=== PATIENT | female | born 1985 | race Caucasian/White ===

== ENCOUNTER 2023-07-05 14:04 | Outpatient (OUT) | payer OTHER, SELFPAY | END 2023-07-05 14:05 | disposition home or self-care (01) | PROVIDERS: PCP Radiology Diagnostic Radiology; Visit Provider Radiology Diagnostic Radiology | DX: I83.813 Varicose veins of bilateral lower extremities with pain (principal) ==

== ENCOUNTER 2023-07-12 13:08 | Outpatient (OUT) | payer OTHER, SELFPAY ==
--- NOTE | 2023-07-12 13:10 | VEIN_ITS ---
Patient Name: LONG YOON MR#: [id number] : 1985 Exam Date: 07/12/2023 Ordering Doctor: DR GAUDENCIO CARR M.D. RADIOLOGY REPORT PROCEDURE: VC EXT VENOUS REFLUX MASSIMO LMTD COMPARISON: None. INDICATIONS: I83.813 Bilateral painful varicose veins TECHNIQUE: Duplex imaging of the lower extremity to assess the deep and superficial venous system for the presence of deep or superficial venous incompetence and to document the location and severity of disease. The study includes evaluation of the great saphenous vein (GSV), anterior accessory saphenous vein (AASV) and small saphenous vein (SSV). Patient scanned in reverse Trendelenburg and standing. FINDINGS: RIGHT LOWER EXTREMITY: Saphenofemoral Junction Reflux: Yes 9.2mm 3.7 sec GSV: Diam (mm) Reflux/ Time (sec) Proximal Thigh 7.9 Yes 3.1 Mid Thigh 5.8 Yes 3.9 Distal Thigh 8.6 Yes 3.9 Prox Calf 2.1 Yes 3.4 Mid Calf 2.2 Yes 1.5 Saphenopopliteal Junction Reflux: 2.2mm Yes 0.6 SSV: Proximal Calf 2.2 Yes 0.4 Mid Calf 2.9 No AASV: Not present Thrombi: No acute or chronic thrombus. Compressibility: Normal. Flow: Severe deep venous reflux. Preforator: Dist medial lower leg 3.6 mm, 1.0s reflux. Tech Note: Incompetent varicosity proximal medial calf measures 5.4 mm with 2.9s reflux. Varicose vein mid medial calf measures 4.0 mm with 3.3s reflux. LEFT LOWER EXTREMITY: Saphenofemoral Junction Reflux: Yes 8.3 mm 2.9 sec GSV: Diam (mm) Reflux/Time (sec) Proximal Thigh 6.6 Yes 3.2 Mid Thigh 4.6 Yes 0.3 Distal Thigh 5.6 Yes 3.7 Prox Calf 5.6 Yes 3.8 Mid Calf 3.8 Yes 1.3 Saphenopopliteal Junction Relux: 6.4 mm Yes 1.0 SSV: Proximal Calf 6.2 Yes 2.0 Mid Calf 4.2 Yes 1.2 AASV: Not present Thrombi: No acute or chronic thrombus. Compressibility: Normal. Flow: Minimal deep venous reflux. 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 Tech Note: Incompetent varicose vein mid medial lower leg measures 4.3 mm with 2.7s reflux. Varicose vein lateral popliteal fossa off of popliteal measures 6.4 mm with 3.9s reflux. Mid medial thigh varicosity measures 4.8 mm with 3.9s reflux. Varicose vein proximal lateral lower leg measures 4.0 mm with 2.4s reflux. CONCLUSION: 1. Severe bilateral great saphenous vein venous insufficiency with saphenofemoral junction reflux and dilatation 2. Moderate left small saphenous vein venous insufficiency with saphenous popliteal junction reflux and dilatation 3. Incompetent left accessory small saphenous vein/incompetent perforating vein 4. Bilateral incompetent varicose veins measuring up to 6.4 mm Dictated by: Gaudencio Carr MD on 07/12/2023 at 14:23 Approved by: Gaudencio Carr MD on 07/12/2023 at 14:25
--- NOTE | 2023-07-12 13:10 | VEIN_ITS ---
Patient Name: LONG YOON MR#: [id number] : 1985 Exam Date: 07/12/2023 Ordering Doctor: DR GAUDENCIO CARR M.D. RADIOLOGY REPORT PROCEDURE: [facility] - OFFICE VISIT INITIAL COMPARISON: None. PROGRESS NOTES: 38-year-old female who presents with a 6 year history of lower extremity pain swelling and varicose veins. The patient rates the pain as a 2 on a scale of 1-10. The patient describes the pain as aching and heaviness occasionally sharp. Patient's symptoms are exacerbated by prolonged sitting and standing and partially relieved by rest, leg elevation and compression stockings which she has worn for the last 6 years. 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 The patient has exercise 5-6 days per week. The patient denies any signs and symptoms to suggest arterial ischemia. The patient describes a family history significant for varicose veins in her mother. Heart disease in her mother and father. Social alcohol use. No illicit drug use. The patient has never smoked. . Patient has 2 children aged 1 and half and 6. The patient is currently on Prozac. No prior significant medical conditions. No history of deep venous thrombus or pulmonary embolus. See separate history and physical for medication list. No prior treatment for varicose or spider veins. The patient has worn compression stockings for 6 years. Nursing notes were reviewed. After history and physical exam I discussed at length the pathophysiology of venous hypertension and possible treatments, therapies and strategies available. We discussed at length the importance of elevating the lower extremities above the level of the heart, increased physical activity and compression stocking use. We discussed conservative treatment with bilateral thigh-high compression stockings. We discussed surgical alternatives including ligation and stripping and phlebectomy. We discussed intravenous laser ablation, micro foam chemical ablation and injection sclerotherapy at length. Risks benefits and alternatives were discussed. I did explain to the patient that given the amount of disease that she has she likely will have significant recurrent disease going forward requiring regular treatments. I encouraged her to wear her compression stockings and continue her exercise. Ultrasound venous reflux study performed the same day was discussed at length with the patient. The report demonstrates severe bilateral great saphenous vein venous insufficiency with saphenofemoral junction reflux and dilatation period moderate left small saphenous vein insufficiency with an accessory incompetent small saphenous vein/incompetent perforating vein. PHYSICAL EXAM: The right leg demonstrates mild scattered varicose and reticular veins. Mild subcutaneous edema. No active ulceration or hemosiderin staining. The left leg demonstrates moderate scattered varicose and reticular veins. Mild subcutaneous edema. No active ulceration or hemosiderin staining Both thighs, legs and feet were symmetrically warm to the touch. Good posterior tibial and dorsalis pedis pulses were present bilaterally. VEIN/VC Facility EST Comprehensive IMPRESSION: 1. Bilateral great saphenous vein and left small saphenous vein venous insufficiency 2. Bilateral incompetent lower extremity varicose veins, left greater than right 3. Mild bilateral lower extremity subcutaneous edema 4. No definite flow significant arterial disease 5. CEAP: C3, Ep, Asp, Pr PLAN: 1. Endovenous laser ablation left great saphenous vein followed by right great saphenous vein followed by left small saphenous vein followed by left accessory small saphenous vein 2. Micro foam chemical ablation bilateral incompetent varicose veins 3. Injection sclerotherapy reticular and spider vein 4. Long-term use of bilateral thigh-high or knee high 20-30 mm compression stockings 5. Elevated legs and continued physical activity for symptomatic relief Nurse notes, history and physical were reviewed and confirmed, see attached forms. The nurse was present throughout the physical exam and consultation Dictated by: Gaudencio Carr MD on 07/12/2023 at 14:44 Approved by: Gaudencio Carr MD on 07/12/2023 at 14:54
--- OUTSIDE RECORDS SUMMARY | 2023-07-12 13:10 | XMS_ITS | CCD ---
Author Name Unknown Address [address] [place] [address] Organization [facility] Care Team Providers Care Early Childhood Specialist Name Role Phone Rishabh Hayes Unavailable Yuri Naik Admitting Unavailable Yuri Naik Attending Unavailable OBERERASHISH Primary Care Unavailable Nataprkeshia, Marie Admitting Unavailable NatReagan parraa Attending Unavailable NatMarie parra Admitting Unavailable Oberer, Ashish Primary Care Unavailable Colby Callejas Attending Unavailable Chucho Barroso Admitting Unavailable Chucho Barroso Attending Unavailable Jennifer Roberson Admitting Unavailable Jennifer Roberson Attending Unavailable Oblouannr, Ashish Primary Care Unavailable Rishabh Hayes Admitting Unavailable Rishabh Hayes Attending Unavailable Oberer, Ashish Primary Care Unavailable Birgit Razo Unavailable Medications Current Medications Medication Drug Class(es) Dates Sig (Normalized) Sig (Original) docusate sodium 100 mg oral capsule (1 source) Start: 11-11-2021 take 100 mg by mouth at bedtime Docusate Sodium Active 100 MG PO Bedtime November 11, 2021 12:00am ferrous sulfate 325 mg oral tablet (1 source) Start: 11-12-2021 take 325 mg by mouth once daily Ferrous Sulfate Active 325 MG PO Daily November 12, 2021 12:00am FLUoxetine 20 mg oral capsule (3 sources) Serotonin Reuptake Inhibitor Start: 11-02-2021 take 1 capsule by mouth once daily Fluoxetine (Prozac) 20 mg Capsule Active 20 MG PO Daily November 02, 2021 12:00am ibuprofen 600 mg oral tablet (2 sources) Nonsteroidal Anti-inflammatory Drug Start: 11-11-2021 take 600 mg by mouth every six hours Ibuprofen Active 600 MG PO Q6H 60 November 11, 2021 12:00am Start: 03-11-2017 End: 11-02-2021 take 600 mg by mouth every six hours Ibuprofen Discontinued 600 MG PO Every 6 hours 60 March 11, 2017 12:00am November 02, 2021 11:20pm Multi For Her - (2 sources) Multi For Her - as directed Orally Active Pnv Cmb#95-Ferrous Fumarate-Fa () 28 mg iron- 800 mcg Tablet (1 source) Start: 03-08-2017 take 1 tablet by mouth once daily Pnv Cmb#95-Ferrous Fumarate-Fa () 28 mg iron- 800 mcg Tablet Active 1 TAB PO Daily March 08, 2017 12:00am Completed/Discontinued Medications Medication Drug Class(es) Dates Sig (Normalized) Sig (Original) traMADol hydrochloride 50 mg oral tablet (1 source) Opioid Agonist Start: 03-11-2017 End: 11-02-2021 take 50 mg by mouth every four hours Tramadol Discontinued 50 MG PO Q4H 30 March 11, 2017 12:00am November 02, 2021 11:20pm Triamcinolone (6 sources) Corticosteroid Start: 12-11-2017 KENALOG - 10 mg Nov, 40 mg Start: 02-03-2015 KENALOG - 10 m g Jan, Start: 01-21-2015 KENALOG - 10 m g Jan, Problems Active Problems Problem Classification Problem Date Documented Date Episodic/Chronic Headache; including migraine (3 sources) Migraine; Translations: [Migraine, unspecified, not intractable, without status migrainosus] Chronic Miscellaneous mental health disorders (2 sources) Psychophysiologic insomnia; Translations: [Psychophysiologic insomnia] Chronic Mood disorders (5 sources) Major depression, single episode; Translations: [Major depressive disorder, single episode, unspecified] Chronic Other nutritional; endocrine; and metabolic disorders (2 sources) Overweight; Translations: [Overweight] Episodic Other nutritional; endocrine; and metabolic disorders (1 source) Abnormal weight gain Episodic Other nutritional; endocrine; and metabolic disorders (1 source) Overweight Episodic Other and delivery including normal (1 source) Vaginal delivery; Translations: [Encounter for full-term uncomplicated delivery] 03-10-2017 Episodic Residual codes; unclassified (2 sources) Long sleeper syndrome; Translations: [Sleep disorder, unspecified] Episodic Unclassified (1 source) Dietary counseling and surveillance; Translations: [Dietary counseling and surveillance] Onset: 03-21-2022 Unclassified (1 source) Z39.1 - Encounter for care and examination of lactating mother; Translations: [Z39.1 - Encounter for care and examination of lactating mother] Onset: 11-14-2021 Unclassified (1 source) Z34.83 - Encounter for supervision of other normal , third trimester; Translations: [Z34.83 - Encounter for supervision of other normal , third trimester] Onset: 11-10-2021 Unclassified (1 source) O09.293 - Supervision of with other poor reproductive or obstetric history, third trimester; Translations: [O09.293 - Supervision of with other poor reproductive or obstetric history, third trimester] Onset: 11-03-2021 Unclassified (1 source) Z36.85 - Encounter for screening for Streptococcus B; Translations: [Z36.85 - Encounter for screening for Streptococcus B] Onset: 10-13-2021 Varicose veins of lower extremity (2 sources) Varicose veins of lower extremity; Translations: [Varicose veins of bilateral lower extremities with other complications] Episodic Past or Other Problems Problem Classification Problem Date Documented Da te Episodic/Chronic Residual codes; unclassified (1 source) 35 weeks gestation of ; Translations: [Z3A.35 - 35 weeks gestation of ] Onset: 10-13-2021 Episodic Results Test Name Value Interpretation Reference Range Facility Coding Summaryon 03-25-2022 [facility] RhhozqriTZr4aYr+PGhlYWQ +NE0JMGIpR21ggXMrdK2AM8 mVWE2UHNAJFTZBYC3FRT5hm XC7EAywO7ZfnjIi TrcbjUCpDI17RXi5DWF7oZd uGJqzyO9roPOuH7h3QcBtUM 98oJ21KVedPFHqShC0IcUgy jsgbWFy N5vjPfPxeJVgNxf+PHRhYmx lIHdpZHRoPScxMDAlJyBzdH weZF7fVs0bBJLmKDZwbVkpk HNlOiBj x5deRHEfEHtaVM6liBcnM1F dxAP9GJGpo2z8Jo73cLQ+PH UxUAI0eTxzMAjte054EaTzh 2dfHPZ9 oELnQWktBGL9K94uk8J5WDM bZZOyBSS6zZM2cP0rxSvksy ibY4MaiHBdRkP3HMP1cIAzf F8ygCkp jgatkI9hQwi+K42ARP3UTAZ HUN1HDnb9C6VpXgygcXR+PC 43QTLpMP14yWYjnLWvn0fuh El2CyBx FTHnZCI3eTwdYLjxg7DuQFQ lR85frBHza7L2TCNzkQbbzG ScLvSefZM7mJ1vPSekzlmpm 2hvdzsn Uplvp4lqhm74yM66D74hDRd jXIOjVMP1TTVlYQOnhHvgbd 4tkR0tVv9+SVokf9ekm7kmm Xq2CkKn PIDtykGafYweHDS2y7OdBu8 1P0YlvYaix9MmJks9lc38fO Yrf3G6cLO1HNtpJWEntC5jP WxlZnQ6 BBSuBrUgnK08fRPbGRmjDy8 euBuxvXrvDL7fSNMiduysGL DueH0yZAUwkQJeaCsiUV0bL TBpbjtm x910EpTbSDG9JRHrjFRhD7O zcK1gStQsNCFmURAgS9JjtV EpHGbfK575VSueAzI5VQUif gRxA0Kr VVGcdNnuTqH5w7Q8Uh8Tz7K bnrkqJRF9HWwdWVUkHjK7At VrKbF8V3IrAoj0IIZfvEvmA Q0vT4Jc UJIyaftzixjnePJ2QPQkIVK eaV26hAHtYTovYl5ai5Z2i5 33NYWcUJDuvQ47Fb7mqYwuW TBwdCBU wQ9fvwwwt7tdoigiMpMhQTK aGSj6OGo9RTTcpKlyOkHmIM I0OhC0QXP3uXNwdL1oqQois zvjoP6w Oyc+J74maM2vIKK0VOE6wwm nPXDmzaSaIO86CX00M2MpQe wvdGFibGU+PGRpdiBzdHlsZ W6xNjWu b3ydf1IuQJcoQ9YnSOZhANk xBwr0TPYcLIY0qVK6eO2dUR HlUKcna4Z1hTB1E2UtrmJga b0ye5vg VETfHFniE22vrVVri4C5ZLO yrBY9HISbbFmtIjLqcC42Tu c+FSDesVinr4SlMlsyv0tns 9lznQs3 RzDeBMWzwhQwzTarBBY0w3K aLg77K10zBKimWRLsEJMxOT SjKLQneIwpsi1cxW0uLc1+P GNvbCB3 qXR1sM4uTHQeIiT0GBamJ98 2MhTmgOUjHsyvs8kbc8llgD y3NvMdLOHilrGnwEenPXS6h 0YtDq34 J00vJHgqTUObLGDvZFCjUXD htGvhnl1peO9gXk1+PC9jb2 rbzx38lW64qAZ+XGQgJMD5y WxlPSdw VFUctM5mLWvzVxU8BOBkWvR ntM77mPPyFAxjLs2lfWpevM auBS7iBHNlculkk345NfYto 2xkIDEw gJFiGPwlMNR5C01sl4E0XXK wLNBuJBU6tNT1vG7wcTgpyc ogbGVmdDsgdmVydGljYWwtY SddV573 IHRvcDsnPlBhdGllbnQgTmF oPAe1E4ZcTbl7WPWwbWkuPA 6ktRCwNLgsZq8cxXkzeOypV A9hYKQi teiiy656HiBrg6fiGTEplAC fONasUQJ5V18ui5Q4CZQpBM LnSPI1tBQ8iD6hyFlbhgwij GVmdDsg dxFteXjhBPybPOgcF692RLV blIoaZeQgsmBvRWIhoWU5VT 88TS01xYMnl0L7dQJ2L3BnE GRpbmct egmlnSP0CMRrVZEirU11Qy1 luBvpKt6tRSBxYFR6SLSicK MaA3LirN4gFmSeBVUcFQXnB 3RleHQt VCnwA787RYgzGmT5VQJybyP fD9AzFHSqnSlqDfB8p9D0Bh 6PF5S1DB80BA38kLHsa6N9c TR8K9Uc NQUwxonfyowphJQ2GQRiZWK bkV76Fj0opNznDl6oHRWgGA H3GLRseXRfE8HgxW2iPdCjA DAwMDAw L2UtoYCvTIkjA056HBpoHkP 8YEZzsgTkO1YeDEXnuPmqXa B5u6Q9Ho3KVRy9XJ07UP55o MTet7Z8 mXU3J6UiPGSpyweayrrysXC 8TZFaIIGocY56Ii6geWcxBw 8uMUEiUMC8PDMpbMSjU1Dzx J3qLwJo TFJmDNUwI4ZwzQLdNPryQ00 5WAcmJnP9OHUsouThY1XmUT PzjIrvAnZ3c0F2Ev9DBZGtU C02ACU6 zPS8RK75GB80X4XwWfrklSX ibGU+PHRhYmxlIHdpZHRoPS biEVYpHsTqjFbhDY2kMv1rR GVyLWNv hNmnoDUfMvDjn8ulXXPsYKm sHT7zjUqnN1GyfHF7HSPde9 n4Nd50E75hK3CeiPK+PGNvb OE5gKE8 iB2wSnFbWmU8MQraI469BcS ozSBwPthwm1bim5xqwJx2We T6EJIcegNzzJomJKS7b5CcU u53D35a IHdpZHRoPSIxNSUiIHZhbGl cau2acH4tHy8+DZNcoMR7eU I6sQ9eKbOvKlB0XMsqG937K nRvcCIv Pmkiv0hvc3cvjCw4GuJpSCC kogRzgKxoSVS9w6JsIu10B1 IjhIusc9XnEcd1tb40pTWqf 7N8qDT5 O6ErYYHfiojgkUWbxGcrIS7 oNKXsehdkYVUalN3uJDZfG9 k3RfFvZyP1YIwbA5TrekK7A DEwcHQg PSyaONT5B84zw8C2PGEdHCH qHPS0dOG3yL7lrOornmnjlQ VmdDsgdmVydGljYWwtYWxpZ 246IHRv dFwlLIApeF6qOCBtkEJffLb yVM1oFNVnpspmDokJZKXAHZ 4sIEVMSVpBQkVUSCBKRUFOP C66OX48 fNPsk4F5zPN7E5CpFLPwxxj quwolzFD0FPMeFZLfaO65gQ SaMIbsUs8nq7D4l471QYItT DUwaW47 Oh1nxRtoSAPuaRXGhM4fncc xu8mbjalvCpRyNPNrQFn9LM i6EVIwiPktNrZeHEZ2ZkN3T FD1fCAu vG0flMgbumbidP5hHwn+MDk pGJSlWRp7KZnecVY+PHRkIH D2oYoyKHndOGRomP3lOQShH 4n9SiRo ZpG8WWqoZ2SgNUHiwqnpKu8 4tP9gUvHrToB6WPksX5Xenu T2CUGmiNZzVQqkBTI4U72fn 2Q9VYAi GFQoWBR5vDA5sC6cfAlotbc gbGVmdDsgdmVydGljYWwtYW nrN440UQMhgFabKuT5RQohW XJzPC90 JB02aKBkx1N1nPA9J0McSWU nixuwzbqkzEL3INZaTBRpjJ 03aSRgJGfrJy7lk4D0d117U DAuMDUw gB12Ol4feDdwREQtjJRRlA9 zeeedw3mbptybZhEyCMPgCP t3PBh6NQQozRadVwYvPQW1X oI2ZCT2 pHOtvQ9alOtekazxmV6rJft +MePJDSmLAO05SB67yWGua3 C5sDZ8J4MgXQHilbgbmwtbv FK5COIj BQHkgK15hIFnKGlkLz6jb8B 2w835QBMfMLQtsL94Xe0pgM fdHHWrfAOOnF9nuvzsp4tzp jogIzAw JXLkZBh1XMs1FRYhaPuyYjD zILX0HeF8XET3iMLukE6ydX wyipvoyE0vFem+Q8M3J5XsI jwvdHI+ GO84PLFqTX08vCKrcKNpl4s mmRb1CvZvDQObCPB4fHriAF rbk0HgGWEyL33txKLxe8R8K GNvbGxh bQMgNyKxoHB3iJ8iIGttyun cz7upzemcQvlic8pcvg03tZ 52B39yWNtxZOBcNWSmYDNyP HZhbGln qy0zzF7sSb2+TLHxrTA5rUE 0tK3sJwPpXgL1RBxwA985Tc XhlNZrUzmxn7von0zezAe4S jIwJSIg ilOdbSoaGYS8e0EtYn71O97 sIHdpZHRoPSIyMCUiIHZhbG ftuh7wtA7ePq8+IH5un6wrs f74gX71 dHI+FWZkZCK3pUpaVRncOGJ wlV1cHMzyYoG1OZVzDcEdgX 14bNPkKNceCf8drKlpbHhrN G5kLBQf ppxln886JdSxc0irBIYmfAV hDLetBIV6T06ur2B3NGYgEF IgOBA3uVC5kU4huZrelexld GVmdDsg mkMsfTikMNtzKBenK354PJU mjYngWpCvfIJwG2gylwPEZQ 1lOjwvdGQ+QCPwIBC7eApuX SdwYWRk zD0vETGjE5t9KmNoFpB0WTd yV5YyshU5WHYaxHIvNNRffB YAwD5tmfrrq9fvohdaInSfA DAwMDt0 PCc2KUBleRycDiRjRGE1ZtE 5FDH1bGEjwX1swLvirthctK 9wOyc+RklOOjwvdGQ+PHRkI LS9sPek JOsnEDZgvA5vLSXxZ8i4LpF pPjO5EUnmZ9WpbxM0VGHseD GqWWWzdAJZaC7sdchpq8zqe jogIzAw KCOrYVv5QVg7GRKgkBvvNrQ lDVO5MuW8VFO1kRCbvQ2feG vpgxnhoJ2eJtn+TVJOOjwvd GQ+PHRk APU2pWglSTbdKXQiaA6nGKS iT8m4HjJsSxV7PTkqD6Ofod P1MAGjcGGqVQInaSEQqW1ne ctsf6ok ykzkGiBnQDFwLIw9CQi6XKR wrByuIuYzGWZ1HgC6NVP5tF SofM4tzYjuthkyuS6fGbp+U BW6VFH7 PR82RW42J1UeRcqobUGgaYN +PHRhYmxlIHdpZHRoPScxMD LiTaZgjOioGU8hMo7uTCIoQ WNvbGxh cHN (more content not included)... Normal [facility] ED Clinical Summaryon 2021 ED Clinical Summary [facility] ? Urgent Care [address] [place], [place] [id number] Clinical Summary PERSON INFORMATION Name: CASSIDY YOON Age: 37 Years Sex: FEMALE : 1985 MRN: Acct#: Visit Reason: Cough; UC - Sore Throat; CONGESTION, SORE THROAT, BODY ACHES Arrival: 03/21/2022 11:57:18 Discharge: 03/21/2022 13:07:00 LOS: 000 01:10 Check In: 03/21/2022 11:57:18 Checkout: 03/21/2022 13:07:00 Address: [address] [facility] [address] PCP: ASHISH HAIDER PROVIDER INFORMATION Provider Role Assigned Unassigned Yuri Geiger ED PA 03/21/2022 12:00:10 Fior Shields [employer]ICAL AND SCIENTIFIC ILLUSTRATOR Nurse 03/21/2022 12:08:48 VITALS INFORMATION Vital Sign Triage Latest Temperature Tympanic Temperature Temporal Artery Pulse Rate O2 Sat 97 % 97 % Respiratory Rate Blood Pressure /83 mmHg /83 mmHg MEDICAL INFORMATION Medications Given: Allergy Information: No known allergies PHYSICIAN DOCUMENTATION DISCHARGE INFORMATION: Discharge Disposition: Home Discharge Location: Home PATIENT EDUCATION INFORMATION Instructions: Sinusitis, Adult; Otitis Media, Adult Follow-Up: With: Address: When: ASHISH HAIDER [address] [place] [address] [facility] (1) Within 2 to 4 days Comments: Diagnosis today of acute bacterial sinusitis, moderate left acute otitis media, bilateral nasal hypertrophy left greater than right which will require antibiotic treatment. -Begin Azithromycin once daily for the next 5 days with food, complete all. -To prevent GI upset and diarrhea strongly encourage use of probiotic such as lactobacillus. Begin a live culture yogurt such as Activia. -Patient has been instructed to begin Flonase nasal spray 1-2 sprays each nostril twice a day for the next 10 days. -Begin Claritin 10mg once daily as an antihistamine Seek additional medical care if worse, chest pain, shortness of breath, headache, fever over 101.5, worsening symptoms in any way. DIAGNOSIS: Acute left otitis media; Acute maxillary sinusitis; Hypertrophy of nasal turbinates Patient Understands: Yes - Patient/family/caregive r verbalizes understanding of instructions given Comment: [facility] ED Note-Nursingon 03-21-2022 ED Note-Nursing pa in room for exam [facility] ED Patient Summaryon 022 ED Patient Summary [facility] ? Urgent Care [address], [place] [id number] PATIENT DISCHARGE INSTRUCTIONS Patient Information Name: KARRIE CASSIDY SINGER Age: 37 Years Date of : 1985 Reason For Visit: Cough; UC - Sore Throat; CONGESTION, SORE THROAT, BODY ACHES Arrival Time: 03/21/2022 11:57:18 Primary Care Physician: ASHISH HAIDER Attending Physician: Yuri Geiger Comment: Patient Education With: Address: When: ASHISH HAIDER [address] [place] [address] Business (1) Within 2 to 4 days Comments: Diagnosis today of acute bacterial sinusitis, moderate left acute otitis media, bilateral nasal hypertrophy left greater than right which will require antibiotic treatment. -Begin Azithromycin once daily for the next 5 days with food, complete all. -To prevent GI upset and diarrhea strongly encourage use of probiotic such as lactobacillus. Begin a live culture yogurt such as Activia. -Patient has been instructed to begin Flonase nasal spray 1-2 sprays each nostril twice a day for the next 10 days. -Begin Claritin 10mg once daily as an antihistamine Seek additional medical care if worse, chest pain, shortness of breath, headache, fever over 101.5, worsening symptoms in any way. Sinusitis, Adult Sinusitis is inflammation of your sinuses. Sinuses are hollow spaces in the bones around your face. Your sinuses are located: ? Around your eyes. ? In the middle of your forehead. ? Behind your nose. ? In your cheekbones. Mucus normally drains out of your sinuses. When your nasal tissues become inflamed or swollen, mucus can become trapped or blocked. This allows bacteria, viruses, and fungi to grow, which leads to infection. Most infections of the sinuses are caused by a virus. Sinusitis can develop quickly. It can last for up to 4 weeks (acute) or for more than 12 weeks (chronic). Sinusitis often develops after a cold. What are the causes? This condition is caused by anything that creates swelling in the sinuses or stops mucus from draining. This includes: ? Allergies. ? Asthma. ? Infection from bacteria or viruses. ? Deformities or blockages in your nose or sinuses. ? Abnormal growths in the nose (nasal polyps). ? Pollutants, such as chemicals or irritants in the air. ? Infection from fungi (rare). What increases the risk? You are more likely to develop this condition if you: ? Have a weak body defense system (immune system). ? Do a lot of swimming or diving. ? Overuse nasal sprays. ? Smoke. What are the signs or symptoms? The main symptoms of this condition are pain and a feeling of pressure around the affected sinuses. Other symptoms include: ? Stuffy nose or congestion. ? Thick drainage from your nose. ? Swelling and warmth over the affected sinuses. ? Headache. ? Upper toothache. ? A cough that may get worse at night. ? Extra mucus that collects in the throat or the back of the nose (postnasal drip). ? Decreased sense of smell and taste. ? Fatigue. ? A fever. ? Sore throat. ? Bad breath. How is this diagnosed? This condition is diagnosed based on: ? Your symptoms. ? Your medical history. ? A physical exam. ? Tests to find out if your condition is acute or chronic. This may include: ? Checking your nose for nasal polyps. ? Viewing your sinuses using a device that has a light (endoscope). ? Testing for allergies or bacteria. ? Imaging tests, such as an MRI or CT scan. In rare cases, a bone biopsy may be done to rule out more serious types of fungal sinus disease. How is this treated? Treatment for sinusitis depends on the cause and whether your condition is chronic or acute. ? If caused by a virus, your symptoms should go away on their own within 10 days. You may be given medicines to relieve symptoms. They include: ? Medicines that shrink swollen nasal passages (topical intranasal decongestants). ? Medicines that treat allergies (antihistamines). ? A spray that eases inflammation of the nostrils (topical intranasal corticosteroids). ? Rinses that help get rid of thick mucus in your nose (nasal saline washes). ? If caused by bacteria, your health care provider may recommend waiting to see if your symptoms improve. Most bacterial infections will get better without antibiotic medicine. You may be given antibiotics if you have: ? A severe infection. ? A weak immune system. ? If caused by narrow nasal passages or nasal polyps, you may need to have surgery. Follow these instructions at home: Medicines ? Take, use, or apply xtlw-ajc-xvcodob and prescription medicines only as told by your health care provider. These may include nasal sprays. ? If you were prescribed an antibiotic medicine, take it as told by your health care provider. Do not stop taking the antibiotic even if you start to feel better. Hydrate and humidif (more content not included)... Normal [facility] Urgent Care Note- Provideron 03-21-2022 Urgent Care Note- Provider Patient: CASSIDY YOON Age: 37 years Sex: FEMALE : 1985 Associated Diagnoses: Acute left otitis media; Acute maxillary sinusitis; Hypertrophy of nasal turbinates Author: Yuri Geiger Basic Information Time seen: Date & time 03/21/2022 12:02:00. History source: Patient. Arrival mode: Walking. History limitation: None. Additional information: Chief Complaint from Nursing Triage Note : Chief Complaint 03/21/2022 12:09 EDT Chief Complaint cough and congestion for 2 weeks. states went to [facility] 2 weeks ago and was put on ATB. no better. had negative covid and strep at that time. . Congestion, sore throat x 2 weeks. Cassidy is a pleasant, 37-year-old, non-smoking female who states onset approximately 2 weeks ago of blowing thick yellow-green, heavy drainage from her nose, tickle postnasal type cough, pressure and popping in both of her ears. She was treated in urgent care with Omnicef for a sinus infection. She states she completed her 10-day course of Omnicef and felt much better. She has been off anx for only 3 days. Approximately 3 days after treatment she reports recurrence of all symptoms. Patient states that the past 2 nights she has had a fever of 10 1-1 02. She is currently afebrile without antipyretic. At the time of antibiotic treatment she was COVID-negative and strep negative. ALL: NKDA Review of Systems Constitutional symptoms: Chills, decreased activity, no fever, no sweats, no fatigue. Skin symptoms: No rash, no breakdown, no lesion. Eye symptoms: No recent vision problems, no blurred vision. ENMT symptoms: Ear pain, sinus pain, pressure in both ears, L>R, no sore throat, no nasal congestion. Respiratory symptoms: Cough, no shortness of breath, no wheezing. Cardiovascular symptoms: No chest pain, no palpitations. Gastrointestinal symptoms: No abdominal pain, no nausea, no vomiting, no diarrhea. Genitourinary symptoms: No dysuria, Musculoskeletal symptoms: No back pain, no Muscle pain. Neurologic symptoms: Headache, no dizziness, no altered level of consciousness, no numbness, no tingling, no weakness. Psychiatric symptoms: No anxiety, no depression. Allergy/immunologic symptoms: No recurrent infections, no impaired immunity. Health Status Allergies: Allergic Reactions (Selected) No known allergies. Past Medical/ Family/ Social History Medical history: No active or resolved past medical history items have been selected or recorded.. Surgical history: No active procedure history items have been selected or recorded.. Family history: No family history items have been selected or recorded.. Social history: Social & Psychosocial Habits Alcohol 03/21/2022 Alcohol Use: Current Frequency: 1-2 times per year Substance Abuse 03/21/2022 Substance use: Never Tobacco 03/21/2022 Smoking tobacco use: Never tobacco user Electronic Cigarette/Vaping 03/21/2022 Electronic Cigarette Use: Never . Problem list: No qualifying data available . Physical Examination Vital Signs Vital Signs 03/21/2022 12:08 EDT Temperature Tympanic 36.7 DegC Peripheral Pulse Rate 84 bpm Respiratory Rate 16 br/min Systolic Blood Pressure 122 mmHg Diastolic Blood Pressure 83 mmHg SpO2 97 % Oxygen Therapy Room air . General: Alert, no acute distress. Skin: Warm, dry. Head: Normocephalic, atraumatic. Neck: Supple, trachea midline. Eye: Pupils are equal, round and reactive to light, extraocular movements are intact, normal conjunctiva. Ears, nose, mouth and throat: Tympanic membrane: Left, moderate, erythema, bulging, External ear: Bilateral, canal, normal, Sinus: Maxillary, tenderness, Left nasal turbinate boggy, edematous. , Nose: Moderate, discharge, swelling, Mouth: Normal, Throat: no erythema, not with exudate, no palatal petechiae. Cardiovascular: Regular rate and rhythm, No murmur. Respiratory: Lungs are clear to auscultation, respirations are non-labored, No w/r/r. Gastrointestinal: Soft, Nontender, Non distended. Back: Nontender. Neurological: Alert and oriented to person, place, time, and situation, No focal neurological deficit observed, CN II-XII intact. Lymphatics: Exam: not anterior cervical, not posterior cervical. Psychiatric: Cooperative, appropriate mood & affect, normal judgment. Medical Decision Making Rationale: Patient seen in urgent care 3 days status post completion of Omnicef for acute sinusitis. On physical exam today patient has left tympanic membrane dull with ear effusion, bilateral nasal turbinates are boggy hypertrophic, exudate left, maxillary sinus tenderness, very congested. She be started on azithromycin, Claritin, Flonase. She reports febrile the past 2 evenings. Here at the urgent care she is afebrile at this time without antipyretics on board. See pcp. Return if failure to improve or worse in any way. Impression and Plan Diagnosis Acute left otitis media ([id number] H66.92, Discharge, Medical) (more content not included)... Normal [facility] [place] 022 Urgent Care Record [facility] ? Urgent Care [address] [place] [address] PATIENT DISCHARGE INSTRUCTIONS Patient Information Name: CASSIDY YOON Age: 37 Years Date of : 1985 Reason For Visit: Cough; UC - Sore Throat; CONGESTION, SORE THROAT, BODY ACHES Arrival Time: 03/21/2022 11:57:18 Primary Care Physician: ASHISH HAIDER Attending Physician: Yuri Geiger Comment: Visit Diagnosis: Diagnoses This Visit Acute left otitis media (H66.92) Acute maxillary sinusitis (J01.00) Cough ([id number]) Hypertrophy of nasal turbinates (J34.3) UC - Sore Throat ([id number]) If you received any narcotics, sedation, or any other medication that causes drowsiness for the next 24 hours, unless otherwise directed: ? Do not drive a car. ? Do not operate machinery such as power tools, lawn mowers, drills, sewing machines, or stoves ? Avoid alcoholic beverages and drugs for allergies, nerves, or sleep ? 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 -Begin Azithromycin once daily for the next 5 days with food, complete all. -To prevent GI upset and diarrhea strongly encourage use of probiotic such as lactobacillus. Begin a live culture yogurt such as Activia. -Patient has been instructed to begin Flonase nasal spray 1-2 sprays each nostril twice a day for the next 10 days. -Begin Claritin 10mg once daily as an antihistamine Seek additional medical care if worse, chest pain, shortness of breath, headache, fever over 101.5, worsening symptoms in any way. Medication Information: The exam and treatment you received today in the [facility] were for an urgent problem and are not intended as complete care. It is important for you to follow up with a doctor, nurse practitioner, or physician?s equal opportunity assistant for ongoing care. If your symptoms become worse or you do not improve as expected and you are unable to reach your usual health care provider, you should return to the Emergency Department, we are available 24 hours a day. For those patients who have received Radiology results, the interpretation of your X-ray as given to you by our Urgent Care physician is only a preliminary report. The Radiologist will review your films and if there is a change in the diagnosis you will be notified by phone. Please make sure you have provided a working phone number so we can reach you if necessary. In the event that you had a lab culture while you were a patient in the Urgent Care, you will be notified by phone if there is a need to change your antibiotic. Please make sure you have provided a working phone number so we can reach you if necessary. [facility] has provided you with a complete list of medications post discharge. Please inform your nursing home director/provider of your visit and for further instruction on these medications. Any specific questions regarding your chronic medications and dosages should be discussed with your primary care physician(s) and/or pharmacist. New Medications Pending Sale To [facility] [address] [place], [place] [id number], [phone] azithromycin (Azithromycin 5 Day Dose Pack 250 mg oral tablet) 1 packet(s) Oral once. as directed on package labeling. Refills: 0. fluticasone nasal (Flonase 50 mcg/inh nasal spray) 1 spray(s) Nasal 2 times a day. Refills: 1. loratadine (Claritin 10 mg oral tablet) 1 tab(s) Oral every day. Refills: 0. Additional medications on your home medication list not specifically addressed. Please contact the ordering physician if you have questions about these medications. FLUoxetine (PROzac 20 mg oral capsule) 1 cap(s) Oral every day. Visit Information Allergies: Substance Reaction Symptoms Type Comments No known allergies Drug Vital Signs: Vitals and Measurements this Visit (last charted value for your 03/21/2022 visit) Vital Signs This Visit Temperature Tympanic: 36.7 DegC Peripheral Pulse Rate: 84 bpm Respiratory Rate: 16 br/min Systolic Blood Pressure: 122 mmHg Diastolic Blood Pressure: 83 mmHg SpO2: 97 % Oxygen Therapy: Room air Measurements This Visit Height/Length Measured: 162.56 cm Weight Measured: 69.85 kg Body Mass Index: 26.43 kg/m2 Problems List: Problem Onset Comments No Problems found Patient Education Sinusitis, Adult Sinusitis is inflammation of your sinuses. Sinuses are hollow spaces in the bones around your face. Your sinuses are located: ? Around your eyes. ? In the middle of your forehead. ? Behind you (more content not included)... Normal [facility] Complete Blood Count Auto Di ffon 11-12-2021 Basophils (Bld) [#/Vol] 0.0 10*3/uL Normal 0.0-0.2 [facility] Comment on above: Order Comment: Comme nt Draw at 630 am Result Comment: PERF ORMED BY: [address] [address] PATHOLOGIST DIRECTOR OF ROOMS CELESTINO LONG M.D. Performed By: #### C BC #### [address] Basophils/100 WBC (Bld) 0.4 % Normal . [facility] Comment on above: Order Comment: Comme nt Draw at 630 am Performed By: #### C BC #### [address] Eosinophils (Bld) [#/Vol] 0.1 10*3/uL Normal 0.0-0.45 [facility] Comment on above: Order Comment: Comme nt Draw at 630 am Performed By: #### C BC #### [address] Eosinophils/100 WBC (Bld) 0.9 % Normal . [facility] Comment on above: Order Comment: Comme nt Draw at 630 am Performed By: #### C BC #### [address] Erythrocyte distribution width (RBC) [Ratio] 13.5 % Normal 11.9-15.3 [facility] Comment on above: Order Comment: Comme nt Draw at 630 am Performed By: #### C BC #### [address] Hematocrit (Bld) [Volume fraction] 26.9 % Low 34.0-46.4 [facility] Comment on above: Order Comment: Comme nt Draw at 630 am Performed By: #### C BC #### [address] Hemoglobin (Bld) [Mass/Vol] 8.9 g/dL Low 11.8-15.4 [facility] Comment on above: Order Comment: Comme nt Draw at 630 am Performed By: #### C BC #### [address] Lymphocytes (Bld) [#/Vol] 2.9 10*3/uL Normal 1.00-4.8 [facility] Comment on above: Order Comment: Comme nt Draw at 630 am Performed By: #### C BC #### [address] Lymphocytes/100 WBC (Bld) 30.4 % Normal . [facility] Comment on above: Order Comment: Comme nt Draw at 630 am Performed By: #### C BC #### [address] MCH (RBC) [Entitic mass] 29.3 pg Normal 24.7-34.3 [facility] Comment on above: Order Comment: Comme nt Draw at 630 am Performed By: #### C BC #### [address] MCV (RBC) [Entitic vol] 88.5 fL Normal 80-100 [facility] Comment on above: Order Comment: Comme nt Draw at 630 am Performed By: #### C BC #### [address] Mean Corpuscular HGB Conc 33.2 g/dL Normal 32.0-35.0 [facility] Comment on above: Order Comment: Comme nt Draw at 630 am Performed By: #### C BC #### [address] Monocytes (Bld) [#/Vol] 0.6 10*3/uL Normal 0.0-0.8 [facility] Comment on above: Order Comment: Comme nt Draw at 630 am Performed By: #### C BC #### [address] Monocytes/100 WBC (Bld) 5.8 % Normal . [facility] Comment on above: Order Comment: Comme nt Draw at 630 am Performed By: #### C BC #### [address] Neutrophils (Bld) [#/Vol] 6.0 10*3/uL Normal 1.8-7.7 [facility] Comment on above: Order Comment: Comme nt Draw at 630 am Performed By: #### C BC #### [address] Neutrophils/100 WBC (Bld) 62.5 % Normal . [facility] Comment on above: Order Comment: Comme nt Draw at 630 am Performed By: #### C BC #### [address] Nucleated RBC/100 WBC (Bld) [Ratio] 0.0 % Normal 0-0.5 [facility] Comment on above: Order Comment: Comme nt Draw at 630 am Performed By: #### C BC #### [address] Platelet mean volume (Bld) [Entitic vol] 9.8 fL Normal 6.3-10.7 [facility] Comment on above: Order Comment: Comme nt Draw at 630 am Performed By: #### C BC #### [address] Platelets (Bld) [#/Vol] 182 10*3/uL Normal 150-450 [facility] Comment on above: Order Comment: Comme nt Draw at 630 am Performed By: #### C BC #### [address] RBC (Bld) [#/Vol] 3.04 10*6/uL Low 3.60-5.00 [facility] Comment on above: Order Comment: Comme nt Draw at 630 am Performed By: #### C BC #### [address] WBC (Bld) [#/Vol] 9.6 10*3/uL Normal 4.5-11.0 [facility] Comment on above: Order Comment: Comme nt Draw at 630 am Performed By: #### C BC #### [address] Screenon 11-11-2021 Screen Negative Normal [facility] Comment on above: Order Comment: Needs drawn per Dulce Maria in Blood Bank. MLG Result Comment: 1 do se(300mcg)of RhoGAM indicated Rhogam Workupon 11-11-2021 Rhogam Candidate Yes Normal [facility] Comment on above: Order Comment: Needs drawn per Dulce Maria in Blood Bank. MLG RHOGAM DOSE POST Normal [facility] Comment on above: Order Comment: Needs drawn per Dulce Maria in Blood Bank. MLG Result Comment: See Fetalscreen result PERFORMED BY: [facility] [address] [place] [address] PATHOLOGIST DIRECTOR OF ROOMS CELESTINO LONG M.D. ABO and Rh group Nom (Bld) Blood group O Rh(D) negative Normal [facility] Comment on above: Order Comment: Needs drawn per Dulce Maria in Blood Bank. MLG Result Comment: PERF ORMED BY: [facility] [address] [place] [address] PATHOLOGIST DIRECTOR OF ROOMS CELESTINO LONG M.D. COVID-19 Antigenon 2 COVID-19 Antigen Healthcare Worker?: N Reference Range: Negative Negative results, from patients with symptom onset beyond five days, should be treated as presumptive and confirmation with a molecular assay, if necessary, for patient management, may be performed. Negative results do not rule out COVID-19 and should not be used as the sole basis for treatment or patient management decisions, including infection control decisions. Negative results should be considered in the context of a patient's recent exposures, history and the presence of clinical signs and symptoms consistent with COVID-19. The Rowan SARS Antigen SHILA does not differentiate between SARS-CoV and SARS-CoV-2. This test was developed and its performance characteristic determined by [facility] and validated at [facility]. This test has not been FDA cleared or approved. This test has been authorized by FDA under an Emergency Use Authorization (EUA). This test has been validated in accordance with the FDA's Guidance Document (Policy for Diagnostics Testing in Laboratories Certified to Perform High Complexity Testing under CLIA prior to Emergency Use Authorization for Coronavirus Disease-2019 during the Public Health Emergency) issued on September 19, 2019. This test is only authorized for the duration of time the declaration that circumstances exist justifying the authorization of the emergency use of in vitro diagnostic tests for detection of SARS-CoV-2 virus and/or diagnosis of COVID-19 infection under section 564(b)(1) of the Act, 21 U.S.C. 360bbb-3(b)(1), unless the authorization is terminated or revoked sooner. SARS-CoV+SARS-CoV-2 (COVID-19) Ag [Presence] in Respiratory specimen by Rapid immunoassay Negative for SARS Antigen by SHILA PERFORMED BY: [place] [address] PATHOLOGIST DIRECTOR OF ROOMS CELESTINO LONG M.D. Normal [facility] Comment on above: Performed By: #### C OVID-19 ROWAN, SOFIANEG #### [address] Complete Blood Count Auto Di ffon 11-10-2021 Basophils (Bld) [#/Vol] 0.0 10*3/uL Normal 0.0-0.2 [facility] Comment on above: Result Comment: PERF ORMED BY: [place] [address] PATHOLOGIST DIRECTOR OF ROOMS CELESTINO LONG M.D. Performed By: #### C BC #### [address] #### RPR W RFX #### [facility] , Basophils/100 WBC (Bld) 0.4 % Normal . [facility] Comment on above: Performed By: #### C BC #### [address] #### RPR W RFX #### [facility] , Eosinophils (Bld) [#/Vol] 0.1 10*3/uL Normal 0.0-0.45 [facility] Comment on above: Performed By: #### C BC #### [address] #### RPR W RFX #### [facility] , Eosinophils/100 WBC (Bld) 1.0 % Normal . [facility] Comment on above: Performed By: #### C BC #### [address] #### RPR W RFX #### [facility] , Erythrocyte distribution width (RBC) [Ratio] 13.8 % Normal 11.9-15.3 [facility] Comment on above: Performed By: #### C BC #### [facility] [address] [place] [address] #### RPR W RFX #### [facility] , Hematocrit (Bld) [Volume fraction] 32.7 % Low 34.0-46.4 [facility] Comment on above: Performed By: #### C BC #### [facility] [address] [place] [address] #### RPR W RFX #### [facility] , Hemoglobin (Bld) [Mass/Vol] 10.9 g/dL Low 11.8-15.4 [facility] Comment on above: Performed By: #### C BC #### [address] #### RPR W RFX #### [facility] , Lymphocytes (Bld) [#/Vol] 2.6 10*3/uL Normal 1.00-4.8 [facility] Comment on above: Performed By: #### C BC #### [facility] [address] [place] [address] #### RPR W RFX #### [facility] , Lymphocytes/100 WBC (Bld) 31.3 % Normal . [facility] Comment on above: Performed By: #### C BC #### [facility] [address] [place] [address] [place] #### RPR W RFX #### [facility] , MCH (RBC) [Entitic mass] 29.2 pg Normal 24.7-34.3 [facility] Comment on above: Performed By: #### C BC #### [address] #### RPR W RFX #### [facility] , MCV (RBC) [Entitic vol] 87.3 fL Normal 80-100 [facility] Comment on above: Performed By: #### C BC #### [facility] [address] [place] [address] #### RPR W RFX #### [facility] , Mean Corpuscular HGB Conc 33.5 g/dL Normal 32.0-35.0 [facility] Comment on above: Performed By: #### C BC #### [facility] [address] [place] [address] [place] #### RPR W RFX #### [facility] , Monocytes (Bld) [#/Vol] 0.6 10*3/uL Normal 0.0-0.8 [facility] Comment on above: Performed By: #### C BC #### [address] #### RPR W RFX #### [facility] , Monocytes/100 WBC (Bld) 7.1 % Normal . [facility] Comment on above: Performed By: #### C BC #### [facility] [address] [place] [address] #### RPR W RFX #### [facility] , Neutrophils (Bld) [#/Vol] 5.0 10*3/uL Normal 1.8-7.7 [facility] Comment on above: Performed By: #### C BC #### [facility] [address] [place] [address] [place] #### RPR W RFX #### [facility] , Neutrophils/100 WBC (Bld) 60.2 % Normal . [facility] Comment on above: Performed By: #### C BC #### [facility] [address] [place] [address] [place] #### RPR W RFX #### [facility] , Nucleated RBC/100 WBC (Bld) [Ratio] 0.1 % Normal 0-0.5 [facility] Comment on above: Performed By: #### C BC #### [facility] [address] [place] [address] #### RPR W RFX #### [facility] , Platelet mean volume (Bld) [Entitic vol] 9.7 fL Normal 6.3-10.7 [facility] Comment on above: Performed By: #### C BC #### [facility] [address] [place] [address] #### RPR W RFX #### [facility] , Platelets (Bld) [#/Vol] 222 10*3/uL Normal 150-450 [facility] Comment on above: Performed By: #### C BC #### [facility] [address] [place] [address] #### RPR W RFX #### [facility] , RBC (Bld) [#/Vol] 3.75 10*6/uL Normal 3.60-5.00 [facility] Comment on above: Performed By: #### C BC #### [address] #### RPR W RFX #### [facility] , WBC (Bld) [#/Vol] 8.4 10*3/uL Normal 4.5-11.0 [facility] Comment on above: Performed By: #### C BC #### [facility] [address] [place] [address] [place] #### RPR W RFX #### [facility] , OB Urine Drug Screen (NO THC )on 11-10-2021 Amphetamine Screen,Urine Negative Normal Negative [facility] Comment on above: Performed By: #### U A OBUDS #### [address] Barbiturate Screen,Urine Negative Normal Negative [facility] Comment on above: Performed By: #### U A, OBUDS #### [address] Benzodiazepines Screen,Urine Negative Normal Negative [facility] Comment on above: Performed By: #### U A, OBUDS #### [address] Cocaine Screen,Urine Negative Normal Negative [facility] Comment on above: Performed By: #### U A, OBUDS #### [address] Opiate Screen,Urine Negative Normal Negative [facility] Comment on above: Performed By: #### U A, OBUDS #### [address] Phencyclidine Screen, Urine Negative Normal Negative [facility] Comment on above: Result Comment: Thes e are unconfirmed results and should not be used for legal purposes. Drug Cut-Off Concentration: AMPH 1000 ng/mL RADHA 200 ng/mL FERMIN 200 ng/mL COCM 300 ng/mL OP 300 ng/mL PCP 25 ng/mL PERFORMED BY: [place] [address] PATHOLOGIST DIRECTOR OF ROOMS CELESTINO LONG M.D. Performed By: #### U A, OBUDS #### [address] RPR w/rfx to Quant TP Abson 11-10-2021 RPR, Rfx Quant RPR Non-Reactive Normal Non Reactive [facility] Comment on above: Result Comment: Perf ormed at: CB - [facility] [address] [id number] Telecommunicator Supervisor: Jose Baeza PhD, Phone: [phone] PERFORMED BY: [place] [address] PATHOLOGIST DIRECTOR OF ROOMS CELESTINO LONG M.D. Performed By: #### C BC #### [address] #### RPR W RFX #### [facility] , Rowan Ag Negativeon 11-11-19 Rowan Ag Negative Negative Normal Negative [facility] Comment on above: Result Comment: This is a duplicate Rowan SARS Antigen (SHILA) result to be used for statistical tracking purpose only. PERFORMED BY: [place] [address] PATHOLOGIST DIRECTOR OF ROOMS CLEESTINO LONG M.D. Performed By: #### C OVID-19 ROWAN, SOFIANEG #### [address] Urinalysison 11-10-2021 Appearance (U) Clear Normal Clear [facility] Comment on above: Order Comment: Name Collection Type:: Clean-Voided Midstream Performed By: #### U A, OBUDS #### [place] [address] [place] Bilirubin,Urine Negative Normal Negative [facility] Comment on above: Order Comment: Name Collection Type:: Clean-Voided Midstream Performed By: #### U A, OBUDS #### [address] Color (U) Yellow Normal Yellow [facility] Comment on above: Order Comment: Name Collection Type:: Clean-Voided Midstream Performed By: #### U A, OBUDS #### [address] Glucose Ql (U) Normal Normal Normal [facility] Comment on above: Order Comment: Name Collection Type:: Clean-Voided Midstream Performed By: #### U A, OBUDS #### [facility] [address] [place] [address] [place] Ketones Ql (U) Negative Normal Negative [facility] Comment on above: Order Comment: Name Collection Type:: Clean-Voided Midstream Performed By: #### U A, OBUDS #### [address] Leukocyte esterase Test strip Ql (U) Negative Normal Negative [facility] Comment on above: Order Comment: Name Collection Type:: Clean-Voided Midstream Performed By: #### U A, OBUDS #### [facility] [address] [place] [address] [place] Nitrite,Urine Negative Normal Negative [facility] Comment on above: Order Comment: Name Collection Type:: Clean-Voided Midstream Performed By: #### U A, OBUDS #### [place] [address] [place] Occult Blood,Urine Negative Normal Negative [facility] Comment on above: Order Comment: Name Collection Type:: Clean-Voided Midstream Result Comment: PERF ORMED BY: [place] [address] PATHOLOGIST DIRECTOR OF ROOMS CELESTINO LONG M.D. Performed By: #### U A, OBUDS #### [address] pH (U) 6.5 [pH] Normal 5.0-9.0 [facility] Comment on above: Order Comment: Name Collection Type:: Clean-Voided Midstream Performed By: #### U A, OBUDS #### [place] [address] [place] Protein,Urine Negative Normal Negative [facility] Comment on above: Order Comment: Name Collection Type:: Clean-Voided Midstream Performed By: #### U A, OBUDS #### [place] [address] [place],Urine 1.005 Normal 1.001-1.030 [facility] Comment on above: Order Comment: Name Collection Type:: Clean-Voided Midstream Performed By: #### U A, OBUDS #### [place] [address] [place] Urobilinogen,Urine Normal Normal Normal [facility] Comment on above: Order Comment: Name Collection Type:: Clean-Voided Midstream Performed By: #### U A, OBUDS #### [address] OB Urine Drug Screen (NO THC )on 11-03-2021 Amphetamine Screen,Urine Negative Normal Negative [facility] Comment on above: Performed By: #### O BUDS, UA #### [address] Barbiturate Screen,Urine Negative Normal Negative [facility] Comment on above: Performed By: #### O BUDS, UA #### [address] Benzodiazepines Screen,Urine Negative Normal Negative [facility] Comment on above: Performed By: #### O BUDS, UA #### [address] Cocaine Screen,Urine Negative Normal Negative [facility] Comment on above: Performed By: #### O BUDS, UA #### [address] Opiate Screen,Urine Negative Normal Negative [facility] Comment on above: Performed By: #### O BUDS, UA #### [address] Phencyclidine Screen, Urine Negative Normal Negative [facility] Comment on above: Result Comment: Thes e are unconfirmed results and should not be used for legal purposes. Drug Cut-Off Concentration: AMPH 1000 ng/mL RADHA 200 ng/mL FERMIN 200 ng/mL COCM 300 ng/mL OP 300 ng/mL PCP 25 ng/mL PERFORMED BY: [place] [address] PATHOLOGIST DIRECTOR OF ROOMS CELESTINO LONG M.D. Performed By: #### O BUDS, UA #### [address] Urinalysison 11-03-2021 Appearance (U) Clear Normal Clear [facility] Comment on above: Order Comment: Name Collection Type:: Clean-Voided Midstream Performed By: #### O BUDS, UA #### [address] Bilirubin,Urine Negative Normal Negative [facility] Comment on above: Order Comment: Name Collection Type:: Clean-Voided Midstream Performed By: #### O BUDS, UA #### [facility] [address] [place] [address] [place] Color (U) Yellow Normal Yellow [facility] Comment on above: Order Comment: Name Collection Type:: Clean-Voided Midstream Performed By: #### O BUDS, UA #### [facility] [address] [place] [address] [place] Glucose Ql (U) Normal Normal Normal [facility] Comment on above: Order Comment: Name Collection Type:: Clean-Voided Midstream Performed By: #### O BUDS, UA #### [place] [address] [place] Ketones Ql (U) Negative Normal Negative [facility] Comment on above: Order Comment: Name Collection Type:: Clean-Voided Midstream Performed By: #### O BUDS, UA #### [place] [address] [place] Leukocyte esterase Test strip Ql (U) Negative Normal Negative [facility] Comment on above: Order Comment: Name Collection Type:: Clean-Voided Midstream Performed By: #### O BUDS, UA #### [facility] [address] [place] [address] [place] Nitrite,Urine Negative Normal Negative [facility] Comment on above: Order Comment: Name Collection Type:: Clean-Voided Midstream Performed By: #### O BUDS, UA #### [place] [address] [place] Occult Blood,Urine Negative Normal Negative [facility] Comment on above: Order Comment: Name Collection Type:: Clean-Voided Midstream Result Comment: PERF ORMED BY: [place] [address] PATHOLOGIST DIRECTOR OF ROOMS CELESTINO LONG M.D. Performed By: #### O BUDS, UA #### [facility] [address] [place] [address] [place] pH (U) 6.5 [pH] Normal 5.0-9.0 [facility] Comment on above: Order Comment: Name Collection Type:: Clean-Voided Midstream Performed By: #### O BUDS, UA #### [facility] [address] Protein,Urine Negative Normal Negative [facility] Comment on above: Order Comment: Name Collection Type:: Clean-Voided Midstream Performed By: #### O BUDS, UA #### [facility] [address] Specificy [place],Urine 1.005 Normal 1.001-1.030 [facility] [facility] Comment on above: Order Comment: Name Collection Type:: Clean-Voided Midstream Performed By: #### O BUDS, UA #### [facility] [address] Urobilinogen,Urine Normal Normal Normal [facility] Comment on above: Order Comment: Name Collection Type:: Clean-Voided Midstream Performed By: #### O BUDS, UA #### [facility] [address] [place] [address] Strep B Cultureon 10-13-2021 Strep B Culture Reason for Exam 35 weeks gestation of ; screening for stre Vaginal/Rectal No Group B Beta Streptococcus Isolated 3 Days PERFORMED BY: [place] [address] PATHOLOGIST DIRECTOR OF ROOMS CELESTINO LONG M.D. [facility] Comment on above: Performed By: #### C USTB #### [address] CNNURSEon 03-29-2021 CNNURSE Nurse Visit (PEDROV) CASSIDY YOON ([id number]) 1985 F Date Time Provider Department 03/29/21 8:00 AM NURSE CARLITOS [facility] REJ ERIC During your visit today, we recorded the following information about you: Last Period 02/09/21 Livia Vogel 03/29/2021 8:58 PM Signed Cassidy Yoon, a 36 year old is here for early OB ultrasound. This is her 1st ultrasound. Ultrasound report indicates SUSAN 11/17/21, LMP 02/09/21 2 gestation sacs Baby A-130BPM CRL 7mm 6W4D Baby B-no FHR CRL 5mm 6W1D Estimated gestational age based on dates: 6W5D Cassidy is a patient of Dr. Rosas Achieved by: IVF FET day 5 on 03/01/21; # of embryos transferred: 1 G3, P1011 Labs Component Latest Ref Rng AND Units 03/15/2021 03/22/2021 HCG Quantitative 1,223.31 13,994 Blood Type: O- History of Ectopic:Yes History of Miscarriage: No History of Abdominal Surgery: No Pain:No Bleeding: No , small discharge- mucous Plan: Progesterone and Estrace: Taking: yes Stop Date: 04/21/21 Pt advised to: Follow up with OB OB Provider: Dr. Salazar in [place] Livia Vogel Called patient to discuss plan. Patient will move on to OB. Livia Vogel March 29, 2021 1:10 PM Que Rosas MD 03/29/2021 8:58 PM Signed TRANSVAGINAL OB ULTRASONOGRAM Intrauterine di/di twins consistent with clinical dates but only one with cardiac activity Ovaries - normal No free fluid See imaging tab PLAN - refer to OB Que Rosas MD Referring Provider: SELF [200] Allergies As of Date: 03/29/2021 (No Known Allergies) Date Reviewed: 03/01/2021 Reviewed by: Nuvia Judd RN - Fully Assessed Reason for Visit: US [4057] Primary Visit Diagnosis: resulting from assisted reproductive technology in first trimester [O09.811] Prescriptions as of 03/29/2021 - progesterone 50 mg/mL injection Inject 1 mL intramuscularly once daily. Inject in the morning - Syringe with Needle, Disp, (SYRINGE 3CC/20GX1 ) To be used to draw up Progesterone in oil - Needle, Disp, 22 G 22 gauge x 1 1/2 To be used to inject progesterone in oil - methylPREDNISolone (MEDROL) 16 mg tablet Take 1 tablet by mouth once daily. - doxycycline (VIBRA-TABS) 100 mg tablet Take 1 tablet by mouth twice daily. - estradiol (ESTRACE) 2 mg tablet Take 3 tablets by mouth once daily. - doxycycline (VIBRA-TABS) 100 mg tablet Take 1 tablet by mouth twice daily. - estradiol (ESTRACE) 2 mg tablet Take 3 tablets by mouth once daily. - methylPREDNISolone (MEDROL) 16 mg tablet Take 1 tablet by mouth once daily. - multivitamin 90-1-50 mg tab Take 1 tablet by mouth daily with breakfast. - progesterone 50 mg/mL injection Inject 1 mL intramuscularly once daily. Use as directed - estradiol (ESTRACE) 2 mg tablet Take three tablets by mouth at bedtime. Problem List As Of Date: 03/29/2021 (None) Encounter Status:Closed by QUE ROSAS on 03/29/21 [facility] 03-22-2021 CNPN Telephone (REIBD) CASSIDY YOON ([id number]) 1985 F Date Time Provider Department 03/22/21 QUE ROSAS During your visit today, we recorded the following information about you: Reddy Zelaya Pss 03/22/2021 4:17 PM Signed HCG results in. Please follow up, thank you! Roxana Rider RN 03/23/2021 8:08 AM Signed See Televisit from 03/23/21. Roxana Rider RN March 23, 2021 8:07 AM Allergies As of Date: 03/22/2021 (No Known Allergies) Date Reviewed: 03/01/2021 Reviewed by: Nuvia Judd RN - Fully Assessed Reason for Visit: Nurses [Other] Prescriptions as of 03/23/2021 - progesterone 50 mg/mL injection Inject 1 mL intramuscularly once daily. Inject in the morning - Syringe with Needle, Disp, (SYRINGE 3CC/20GX1 ) To be used to draw up Progesterone in oil - Needle, Disp, 22 G 22 gauge x 1 1/2 To be used to inject progesterone in oil - methylPREDNISolone (MEDROL) 16 mg tablet Take 1 tablet by mouth once daily. - doxycycline (VIBRA-TABS) 100 mg tablet Take 1 tablet by mouth twice daily. - estradiol (ESTRACE) 2 mg tablet Take 3 tablets by mouth once daily. - doxycycline (VIBRA-TABS) 100 mg tablet Take 1 tablet by mouth twice daily. - estradiol (ESTRACE) 2 mg tablet Take 3 tablets by mouth once daily. - methylPREDNISolone (MEDROL) 16 mg tablet Take 1 tablet by mouth once daily. - multivitamin 90-1-50 mg tab Take 1 tablet by mouth daily with breakfast. - progesterone 50 mg/mL injection Inject 1 mL intramuscularly once daily. Use as directed - estradiol (ESTRACE) 2 mg tablet Take three tablets by mouth at bedtime. Problem List As Of Date: 03/22/2021 (None) Encounter Status:Closed by ROXANA RIDER [facility] 03/23/21 [facility] Telephone (REIBD) CASSIDY YOON ([id number]) 1985 F Date Time Provider Department 03/11/21 QUE ROSAS During your visit today, we recorded the following information about you: Marivel hPipps 03/11/2021 1:48 PM Signed Pt. Needs progesterone refill sent to [facility] Please. Thank You! Alexandrea Guzman 03/11/2021 2:21 PM Signed Progesterone reordered to [facility]. Alexandrea Guzman March 11, 2021 2:21 PM Allergies As of Date: 03/11/2021 (No Known Allergies) Date Reviewed: 03/01/2021 Reviewed by: Nuvia Judd RN - Fully Assessed Reason for Visit: Nurse To Address [3636] Order(s):progesterone 50 mg/mL injectionInject 1 mL intramuscularly once daily. Inject in the morningDisp: 30 mLRfl: 3 Syringe with Needle, Disp, (SYRINGE 3CC/20GX1 )To be used to draw up Progesterone in oilDisp: 30 EachRfl: 3 Needle, Disp, 22 G 22 gauge x 1 1/2 To be used to inject progesterone in oilDisp: 30 EachRfl: 3 Prescriptions as of 03/13/2021 - progesterone 50 mg/mL injection Inject 1 mL intramuscularly once daily. Inject in the morning - Syringe with Needle, Disp, (SYRINGE 3CC/20GX1 ) To be used to draw up Progesterone in oil - Needle, Disp, 22 G 22 gauge x 1 1/2 To be used to inject progesterone in oil - methylPREDNISolone (MEDROL) 16 mg tablet Take 1 tablet by mouth once daily. - doxycycline (VIBRA-TABS) 100 mg tablet Take 1 tablet by mouth twice daily. - estradiol (ESTRACE) 2 mg tablet Take 3 tablets by mouth once daily. - doxycycline (VIBRA-TABS) 100 mg tablet Take 1 tablet by mouth twice daily. - estradiol (ESTRACE) 2 mg tablet Take 3 tablets by mouth once daily. - methylPREDNISolone (MEDROL) 16 mg tablet Take 1 tablet by mouth once daily. - multivitamin 90-1-50 mg tab Take 1 tablet by mouth daily with breakfast. - progesterone 50 mg/mL injection Inject 1 mL intramuscularly once daily. Use as directed - estradiol (ESTRACE) 2 mg tablet Take three tablets by mouth at bedtime. Problem List As Of Date: 03/11/2021 (None) Prescriptions ordered this encounter Disp Refills Start End PROGESTERONE 50 MG/ML INTRAMUSCULAR * 30 mL 3 03/13/2021 Route: INTRAMUSCULA Sig: Inject 1 mL intramuscularly once daily. Inject in the morning SYRINGE 3 ML 20 GAUGE X 1 30 E* 3 03/13/2021 Sig: To be used to draw up Progesterone in oil NEEDLE (DISP) 22 G 22 GAUGE X 1 1/2 30 E* 3 03/13/2021 Sig: To be used to inject progesterone in oil Medications Discontinued During This Encounter Prescriptions - Needle, Disp, 22 G 22 gauge x 1 1/2 (Discontinued) To be used to inject progesterone in oil - Syringe with Needle, Disp, (SYRINGE 3CC/20GX1 ) (Discontinued) To be used to draw up Progesterone in oil - progesterone 50 mg/mL injection (Discontinued) Inject 1 mL intramuscularly once daily. Inject in the morning Encounter Status:Closed by QUE ROSAS on 03/13/21 [facility] CNCOon 03-01-2021 CNCO Letter Text Normal [facility] CNOVon 03-01-2021 CNOV Office Visit (IVFBE) CASSIDY YOON ([id number]) 1985 F Date Time Provider Department 03/01/21 2:00 PM QUE ROSAS IVFBE During your visit today, we recorded the following information about you: Nuvia Judd RN 03/01/2021 1:48 PM Signed POST EMBRYO TRANSFER INSTRUCTIONS ? You will need to have your blood drawn for Quantitative HCG on 03/15/21 at [place]. You can expect to be called the afternoon of your blood draw with your test results. If for any reason that date or location is changed, please call [phone] to inform us. ? Continue your current medications as instructed UNTIL YOU ARE 10 WEEKS or until a BLOOD test is confirmed negative. ? It is not uncommon to have breast tenderness, bloating, vaginal spotting ranging from pink to red to brown and generally feeling premenstrual while waiting to test. You can feel this way and still be - DO NOT STOP YOUR MEDICATIONS until testing is completed. Call the office if you develop: - Pain, redness and heat at your injection sites From the day of your transfer on, please treat yourself as if you are . Things to avoid: - Hot tubs/raising your core temperature - Chemical exposures - Drugs/medications that are not safe in - Processed lunch meat, unpasteurized cheeses - Smoking - Fish that are high in mercury Our recommendations on maintaining a healthy lifestyle during this time include: - Regular physical activity. Bed-rest is NOT recommended and will not increase your chance of - Daily vitamin or folic acid - Healthy diet - Adequate sleep - Sexual intimacy/intercourse/or gasm will not interfere with implantation. It is difficult to maintain the balance between optimism and realism. Remember you have done and are doing all that you can to improve your odds. Set reasonable expectations for yourselves. Keeping yourself busy and mentally distracted will help the time pass while waiting to test. If you have any questions, please call [phone]. Que Rosas MD 03/01/2021 2:16 PM Signed [facility] CARLITOS TRANSFER PROCEDURE NOTE Date: 03/01/2021 Primary Proceduralist: Que Rosas MD Nutrition Coordinator(s): Not applicable Informed Consent: Indications: Cassidy Yoon, is a 36 year old female here today for Embryo Transfer. [place] Protocol: Sign In: Personnel: Special Equipment: Patient/Surrogate Stated/Verified: No data was found Time Out: Provider Confirms: Intended patient and procedure match the source document(s): Consent documented and matches the intended procedure: Relevant labs, photos, and/or imaging studies have been reviewed: Correct side/site marked and visible: Medications required for procedure verified: Fire risk assessed and interventions discussed: Implants: TRANSFER Transfer Date: 03/01/21 Transfer Procedure: Embryo Transfer Transfer Physician: Que Rosas M.D. Pre-Procedure Diagnosis: Infertility Post-Procedure Diagnosis: Infertility Source of embryos: Patient Total Thawed: 1 # of Embryos Transferred: 1 ASRM Guidelines: Recommended limits adhered to Catheter Type: Velazquez Ease of Transfer: Easy Direction: Mid Depth (cm): 6.5 Distance from fundus (mm): 11 Sign Out: All specimen containers correctly labeled: All instruments, equipment, possible retained foreign bodies accounted for: Post-procedure follow-up management communicated and Plan of Care Visit completed when applicable: Specimens: None I/primary surgeon/proceduralist performed the entire procedure. SIGNATURE: Que Rosas MD PATIENT NAME: Cassidy Yoon DATE: March 01, 2021 TIME: 2:16 PM Referring Provider: SELF [200] Allergies As of Date: 03/01/2021 (No Known Allergies) Date Reviewed: 03/01/2021 Reviewed by: Nuvia Judd RN - Fully Assessed Reason for Visit: Infertility [285] Primary Visit Diagnosis:Female infertility [N97.9] Prescriptions as of 03/01/2021 - methylPREDNISolone (MEDROL) 16 mg tablet Take 1 tablet by mouth once daily. - doxycycline (VIBRA-TABS) 100 mg tablet Take 1 tablet by mouth twice daily. - estradiol (ESTRACE) 2 mg tablet Take 3 tablets by mouth once daily. - Needle, Disp, 22 G 22 gauge x 1 1/2 To be used to inject progesterone in oil - Syringe with Needle, Disp, (SYRINGE 3CC/20GX1 ) To be used to draw up Progesterone in oil - progesterone 50 mg/mL injection Inject 1 mL intramuscularly once daily. Inject in the morning - doxycycline (VIBRA-TABS) 100 mg tablet Take 1 tablet by mouth twice daily. - estradiol (ESTRACE) 2 mg tablet Take 3 tablets by mouth once daily. - methylPREDNISolone (MEDROL) 16 mg tablet Take 1 tablet by mouth once daily. - multivitamin 90-1-50 mg tab Take 1 tablet by mouth daily with breakfast. - progesterone 50 mg/m (more content not included)... Normal [facility] CNOV Office Visit (ANDRBE ) CASSIDY YOON ([id number]) 1985 F Date Time Provider Department 03/01/21 2:00 PM [facility] During your visit today, we recorded the following information about you: Ramonita Guy 03/01/2021 2:01 PM Signed Embryo Transfer procedure performed. Detailed notes can be found in the paper chart in the [facility] SERVICE DELIVERY MANAGER Office. Ramonita Guy Referring Provider: SELF [200] Allergies As of Date: 03/01/2021 (No Known Allergies) Date Reviewed: 03/01/2021 Reviewed by: Nuvia Judd RN - Fully Assessed Primary Visit Diagnosis:Female infertility [N97.9] Prescriptions as of 03/02/2021 - methylPREDNISolone (MEDROL) 16 mg tablet Take 1 tablet by mouth once daily. - doxycycline (VIBRA-TABS) 100 mg tablet Take 1 tablet by mouth twice daily. - estradiol (ESTRACE) 2 mg tablet Take 3 tablets by mouth once daily. - Needle, Disp, 22 G 22 gauge x 1 1/2 To be used to inject progesterone in oil - Syringe with Needle, Disp, (SYRINGE 3CC/20GX1 ) To be used to draw up Progesterone in oil - progesterone 50 mg/mL injection Inject 1 mL intramuscularly once daily. Inject in the morning - doxycycline (VIBRA-TABS) 100 mg tablet Take 1 tablet by mouth twice daily. - estradiol (ESTRACE) 2 mg tablet Take 3 tablets by mouth once daily. - methylPREDNISolone (MEDROL) 16 mg tablet Take 1 tablet by mouth once daily. - multivitamin 90-1-50 mg tab Take 1 tablet by mouth daily with breakfast. - progesterone 50 mg/mL injection Inject 1 mL intramuscularly once daily. Use as directed - estradiol (ESTRACE) 2 mg tablet Take three tablets by mouth at bedtime. Problem List As Of Date: 03/01/2021 (None) Encounter Status:Closed by YVETTE ROMAN on 03/01/21 [facility] (MICHELLEIAV[facility] CASSIDY YOON ([id number]) 1985 F Date Time Provider Department 02/23/21 7:15 AM NURSE CARLITOS [facility] REJ REIAV During your visit today, we recorded the following information about you: Livia Vogel 02/28/2021 9:35 PM Signed The patient is here today for follicular ultrasound and blood work. The patient reports no problems or complaints. Ultrasound and blood will be reviewed by the physician, the flow sheet will be updated and instructions will be communicated to the patient. Livia Vogel Unable to reach patient by phone, sent [employer] message with instructions. Asked patient to resend thaw plan and will call back after 1pm. Livia Vogel February 23, 2021 12:52 PM Referring Provider: SELF [200] Allergies As of Date: 02/23/2021 (No Known Allergies) Date Reviewed: 01/08/2020 Reviewed by: Briseyda (Rn) KOSTA Smith - Fully Assessed Reason for Visit: Infertility [285] Primary Visit Diagnosis:Primary female infertility [N97.9] Prescriptions as of 02/28/2021 - methylPREDNISolone (MEDROL) 16 mg tablet Take 1 tablet by mouth once daily. - doxycycline (VIBRA-TABS) 100 mg tablet Take 1 tablet by mouth twice daily. - estradiol (ESTRACE) 2 mg tablet Take 3 tablets by mouth once daily. - Needle, Disp, 22 G 22 gauge x 1 1/2 To be used to inject progesterone in oil - Syringe with Needle, Disp, (SYRINGE 3CC/20GX1 ) To be used to draw up Progesterone in oil - progesterone 50 mg/mL injection Inject 1 mL intramuscularly once daily. Inject in the morning - doxycycline (VIBRA-TABS) 100 mg tablet Take 1 tablet by mouth twice daily. - estradiol (ESTRACE) 2 mg tablet Take 3 tablets by mouth once daily. - methylPREDNISolone (MEDROL) 16 mg tablet Take 1 tablet by mouth once daily. - multivitamin 90-1-50 mg tab Take 1 tablet by mouth daily with breakfast. - progesterone 50 mg/mL injection Inject 1 mL intramuscularly once daily. Use as directed - estradiol (ESTRACE) 2 mg tablet Take three tablets by mouth at bedtime. Problem List As Of Date: 02/23/2021 (None) Encounter Status:Closed by LEROY LEE on 02/28/21 Normal [facility] Estradiol-17Bon 02-23-2021 Estradiol-17B 256 pg/mL Normal [facility] Comment on above: Result Comment: This test is not suitable for patients receiving treatment with the drug Fulvestrant (Faslodex). The drug causes an interference leading to falsely elevated estradiol results. Menstrual cycle Estradiol reference ranges: Follicular : < 234 pg/mL Ovulation : 41 to 398 pg/mL Luteal : < 342 pg/mL Estradiol reference ranges vary by gestational period: First trimester : 154 to 3243 pg/mL Second trimester : 1561 TO 23473 pg/mL Third trimester : 8285 to >97735 pg/mL Reference ranges were not locally established for this patient's age group. The normal values are based on the following source: Estradiol III (package insert v4.0 Hungarian). [employer], [place] [employer], [place], November 2015. Post-menopausal Estradiol reference range: < 41 pg/mL Post menopausal reference range was established locally. Progesteroneon 02-23-2021 Progesterone 0.4 ng/mL Normal [facility] Comment on above: Result Comment: Mens trual Cycle Progesterone Reference Ranges: Follicular:<1.0 ng/mL Ovulation:<12.1 ng/mL Luteal:1.8 to 23.9 ng/mL Progesterone Reference Ranges vary by gestational period: First Trimester:11.0 to 44.3 ng/mL Second Trimester:25.4 to >60.0 ng/mL Third Trimester:58.7 to >60.0 ng/mL Reference ranges were not locally established for this patient's age group. The normal values are based on the following source: Progresterone III (package insert v1.0 Hungarian). [employer], [place] [employer], [place], March 2015. Post menopausal Progesterone:<0.5 ng/mL Post menopausal reference range was established locally. Otoniel 02-10-2021 EMMANUELN Telephone (REIBD) CASSIDY YOON ([id number]) 1985 F Date Time Provider Department 02/10/21 KAMILLE DUVAL During your visit today, we recorded the following information about you: Kamille Duval RN 02/10/2021 10:41 AM Signed Called patient with update. Let patient know we received her PAP results but still need annual WW visit faxed. Patient will call doctors office to have them fax results. PAP results filed to be scanned. Patient has no further questions at this time. Kamille Duval RN February 10, 2021 10:41 AM Kamille Duval RN 02/10/2021 2:40 PM Signed Patient up to date WW exam received via fax. Filed to be scanned. Called patient to make aware. Patient scheduled for lining check 02/23/21 in [place]. Kamille Duval RN February 10, 2021 2:27 PM Allergies As of Date: 02/10/2021 (No Known Allergies) Date Reviewed: 01/08/2020 Reviewed by: Briseyda Ovalle) KOSTA Smith - Fully Assessed Reason for Visit: Patient Update [1234] Prescriptions as of 02/10/2021 - methylPREDNISolone (MEDROL) 16 mg tablet Take 1 tablet by mouth once daily. - doxycycline (VIBRA-TABS) 100 mg tablet Take 1 tablet by mouth twice daily. - estradiol (ESTRACE) 2 mg tablet Take 3 tablets by mouth once daily. - Needle, Disp, 22 G 22 gauge x 1 1/2 To be used to inject progesterone in oil - Syringe with Needle, Disp, (SYRINGE 3CC/20GX1 ) To be used to draw up Progesterone in oil - progesterone 50 mg/mL injection Inject 1 mL intramuscularly once daily. Inject in the morning - doxycycline (VIBRA-TABS) 100 mg tablet Take 1 tablet by mouth twice daily. - estradiol (ESTRACE) 2 mg tablet Take 3 tablets by mouth once daily. - methylPREDNISolone (MEDROL) 16 mg tablet Take 1 tablet by mouth once daily. - multivitamin 90-1-50 mg tab Take 1 tablet by mouth daily with breakfast. - progesterone 50 mg/mL injection Inject 1 mL intramuscularly once daily. Use as directed - estradiol (ESTRACE) 2 mg tablet Take three tablets by mouth at bedtime. Problem List As Of Date: 02/10/2021 (None) Encounter Status:Closed by KAMILLE DUVAL on 02/10/21 [facility] Otoniel 01-08-2021 MIKEY Telephone (REIBD) CASSIDY YOON ([id number]) 1985 F Date Time Provider Department 01/08/21 QUE ROSAS During your visit today, we recorded the following information about you: Marivel Phipps 01/08/2021 2:51 PM Signed Pt. Calling in - had appointment with Dr. Rosas today. Started period on 01/06/21. Please call with next steps. Rebecca Montgomery RN 01/11/2021 10:28 AM Signed Called patient to number listed, verified pt. Pt reports that they never completed FET #2 because of COVID. They are now ready to move forward. Advised of need for annual/pap results. She will call to schedule that and fax us the results. Medications/orders pended and sent to Dr. Rosas to file. Pt already has progesterone in oil and needles, expiration dates checked. Advised new thaw plan sent via [employer]. Her and her partner will have notarized. Advised we can start her FET process after annual exam. Verbalizes understanding. Rebecca Montgomery RN January 11, 2021 10:22 AM Allergies As of Date: 01/08/2021 (No Known Allergies) Date Reviewed: 01/08/2020 Reviewed by: Briseyda (Kosta) KOSTA Smith - Fully Assessed Reason for Visit: Nurse To Address [3636] Primary Visit Diagnosis:Female infertility [N97.9] Order(s):FOLLICULAR US [facility] [4833835] Order #: [id number]: 1 ESTRADIOL-17B BLD [SQE2] Order #: [id number] FUTURE PROGESTERONE BLD [SQPROG] Order #: [id number] FUTURE methylPREDNISolone (MEDROL) 16 mg tabletTake 1 tablet by mouth once daily.Disp: 4 tabletRfl: 0 doxycycline (VIBRA-TABS) 100 mg tabletTake 1 tablet by mouth twice daily.Disp: 8 tabletRfl: 0 estradiol (ESTRACE) 2 mg tabletTake 3 tablets by mouth once daily.Disp: 120 tabletRfl: 3 Prescriptions as of 01/11/2021 - methylPREDNISolone (MEDROL) 16 mg tablet Take 1 tablet by mouth once daily. - doxycycline (VIBRA-TABS) 100 mg tablet Take 1 tablet by mouth twice daily. - estradiol (ESTRACE) 2 mg tablet Take 3 tablets by mouth once daily. - Needle, Disp, 22 G 22 gauge x 1 1/2 To be used to inject progesterone in oil - Syringe with Needle, Disp, (SYRINGE 3CC/20GX1 ) To be used to draw up Progesterone in oil - progesterone 50 mg/mL injection Inject 1 mL intramuscularly once daily. Inject in the morning - doxycycline (VIBRA-TABS) 100 mg tablet Take 1 tablet by mouth twice daily. - estradiol (ESTRACE) 2 mg tablet Take 3 tablets by mouth once daily. - methylPREDNISolone (MEDROL) 16 mg tablet Take 1 tablet by mouth once daily. - multivitamin 90-1-50 mg tab Take 1 tablet by mouth daily with breakfast. - progesterone 50 mg/mL injection Inject 1 mL intramuscularly once daily. Use as directed - estradiol (ESTRACE) 2 mg tablet Take three tablets by mouth at bedtime. Problem List As Of Date: 01/08/2021 (None) Prescriptions ordered this encounter Disp Refills Start End METHYLPREDNISOLONE 16 MG TABLET 4 ta* 0 01/11/2021 Route: ORAL Sig: Take 1 tablet by mouth once daily. DOXYCYCLINE HYCLATE 100 MG TABLET 8 ta* 0 01/11/2021 Route: ORAL Sig: Take 1 tablet by mouth twice daily. ESTRADIOL 2 MG TABLET 120 * 3 01/11/2021 Route: ORAL Sig: Take 3 tablets by mouth once daily. Encounter Status:Closed by QUE ROSAS on 01/11/21 [facility] Otoniel 12-28-2020 [facility] Telephone (REIBD) CASSIDY YOON ([id number]) 1985 F Date Time Provider Department 12/28/20 LUCIO LAFLEUR During your visit today, we recorded the following information about you: Jamilah Owens [facility] 12/28/2020 11:14 AM Signed Patient calling back on day 23 of cycle, cycles are 33-35 days for frozen transfer. Patient states has progesterone, informed patient Dr. Lafleur has retired. Ana Rosa Lindsey RN 12/28/2020 11:55 AM Signed Call to pt at cell number listed and LM on for pt to schedule an appt with another doctor to reestablish care since Dr. Lafleur has retired. Ana Rosa Lindsey RN December 28, 2020 11:54 AM Allergies As of Date: 12/28/2020 (No Known Allergies) Date Reviewed: 01/08/2020 Reviewed by: Briseyda AparicioRn) KOSTA Smith - Fully Assessed Reason for Visit: on day 23 for fet [Other] Prescriptions as of 12/28/2020 - Needle, Disp, 22 G 22 gauge x 1 1/2 To be used to inject progesterone in oil - Syringe with Needle, Disp, (SYRINGE 3CC/20GX1 ) To be used to draw up Progesterone in oil - progesterone 50 mg/mL injection Inject 1 mL intramuscularly once daily. Inject in the morning - doxycycline (VIBRA-TABS) 100 mg tablet Take 1 tablet by mouth twice daily. - estradiol (ESTRACE) 2 mg tablet Take 3 tablets by mouth once daily. - methylPREDNISolone (MEDROL) 16 mg tablet Take 1 tablet by mouth once daily. - multivitamin 90-1-50 mg tab Take 1 tablet by mouth daily with breakfast. - progesterone 50 mg/mL injection Inject 1 mL intramuscularly once daily. Use as directed - estradiol (ESTRACE) 2 mg tablet Take three tablets by mouth at bedtime. Problem List As Of Date: 12/28/2020 (None) Encounter Status:Closed by ANA ROSA LINDSEY [facility] Telephone (REIBD) CASSIDY YOON ([id number]) 1985 F Date Time Provider Department 12/16/20 LATOYA BYRNES During your visit today, we recorded the following information about you: Angella Weeks PSS 12/16/2020 10:00 AM Signed Patient would like to set up and start another IVF cycle. Please contact with next steps Kathie Smith RN 12/22/2020 3:02 PM Signed Rn returned pt call, LVM. Kathie Smith RN December 22, 2020 3:02 PM Allergies As of Date: 12/16/2020 (No Known Allergies) Date Reviewed: 01/08/2020 Reviewed by: Briseyda Ovalle) KOSTA Smith - Fully Assessed Reason for Visit: Patient Question [1477] Prescriptions as of 12/22/2020 - Needle, Disp, 22 G 22 gauge x 1 1/2 To be used to inject progesterone in oil - Syringe with Needle, Disp, (SYRINGE 3CC/20GX1 ) To be used to draw up Progesterone in oil - progesterone 50 mg/mL injection Inject 1 mL intramuscularly once daily. Inject in the morning - doxycycline (VIBRA-TABS) 100 mg tablet Take 1 tablet by mouth twice daily. - estradiol (ESTRACE) 2 mg tablet Take 3 tablets by mouth once daily. - methylPREDNISolone (MEDROL) 16 mg tablet Take 1 tablet by mouth once daily. - multivitamin 90-1-50 mg tab Take 1 tablet by mouth daily with breakfast. - progesterone 50 mg/mL injection Inject 1 mL intramuscularly once daily. Use as directed - estradiol (ESTRACE) 2 mg tablet Take three tablets by mouth at bedtime. Problem List As Of Date: 12/16/2020 (None) Encounter Status:Closed by KATHIE SMITH RN on 12/22/20 Normal [facility] Vital Signs Date Time Vital Sign Value Performing Clinician Facility 11-23-2022 10:45-0400 Body height 161.29 cm Birgit Razo Other [facility] Other 11-23-2022 10:45-0400 Body mass index (BMI) [Ratio] 22.66 kg/m2 Birgit Razo Other [facility] Other 11-23-2022 10:45-0400 Body temperature 97.3 [degF] Birgit Razo Other [facility] Other 11-23-2022 10:45-0400 Body weight 58.97 kg Birgit Razo Other [facility] Other 11-23-2022 10:45-0400 Diastolic blood pressure 68 mm[Hg] Birgit Razo Other [facility] Other 11-23-2022 10:45-0400 SaO2% (BldA) [Mass fraction] 99 % Birgit Razo Other [facility] Other 11-23-2022 10:45-0400 Systolic blood pressure 116 mm[Hg] Birgit Razo Other [facility] Other 03-21-2022 11:15-0400 Body height 161.29 cm Rishabh Manzanaresdiff Other [facility] Other 03-21-2022 11:15-0400 Body mass index (BMI) [Ratio] 26.88 kg/m2 Rishabh Manzanaresdiff Other [facility] Other 03-21-2022 11:15-0400 Body weight 69.95 kg Rishabh Manzanaresdiff Other [facility] Other 03-21-2022 11:15-0400 Diastolic blood pressure 77 mm[Hg] Rishabhalberto Hayes Other [facility] Other 03-21-2022 11:15-0400 Respiratory rate 18 /min Rishabh Manzanaresdiff Other [facility] Other 03-21-2022 11:15-0400 SaO2% (BldA) [Mass fraction] 99 % Rishabhalberto Manzanaresdiff Other [facility] Other 03-21-2022 11:15-0400 Systolic blood pressure 117 mm[Hg] Rishabh Manzanaresdiff Other [facility] Other Encounters Encounter Date Encounter Type Care Provider Facility Start: 11-23-2022 End: 11-23-2022 ambulatory Birgit Razo Other [facility] Other Start: 11-23-2022 FQ visit new patient Birgit yancey [facility] Vascular Surgery Start: 03-21-2022 Nutrition therapy Rishabh Hayes [facility] Start: 03-21-2022 End: 03-22-2022 ambulatory Yuri Thomas Naik [facility] [employer] [facility] [employer] Other Start: 11-14-2021 End: 11-14-2021 ambulatory Jennifer Roberson Facility:[facility] Start: 11-10-2021 End: 11-12-2021 Evaluation and management of inpatient Marie Camaraawira Facility:[facility] Start: 11-03-2021 End: 11-03-2021 ambulatory Chucho Barroso Facility:[facility] Start: 10-13-2021 End: 10-13-2021 ambulatory Marie Nataprawira Facility:[facility] Procedures Date Procedure Procedure Detail Performing Clinician Start: 11-11-2021 Antibody screen Marie dockery Comment on above: Order Comment: Needs drawn per Dulce Maria in Blood Bank. MLG Result Comment: PERF ORMED BY: [facility] [address] [place] [address] PATHOLOGIST DIRECTOR OF ROOMS CELESTINO LONG M.D. Immunizations Immunization Date Immunization Notes Care Provider Fa cility 03-09-2017 tetanus toxoid, redu tutu diphtheria toxoid, and acellular pertussis vaccine, adsorbed [facility] Payers Date Payer Category Payer Self-pay [id number] 2021 Unknown [id number] 2. [id number] 1985 Unknown [id number] 2.16.84 [id number] Unknown [id number] 2.16.8 [id number] Unknown [id number] 2.16.8 [id number] Unknown [id number] 2.16.8 [id number] Unknown [id number] 2.16.8 [id number] Unknown [id number] 2.16.8 [id number] Social History Date Type Detail Facility Unknown if ever smoked [facility] Other Sex Assigned At Sex Assigned At Bir th [facility] Other Start: 1985 Sex Assigned At Female F [facility] Clinical Notes 01-08-2021 to 11-23-2022 Note Date & Type Note Facility 11-23-2022 Evaluation note Encounter Date Diagnosis Assessment Notes Nov, Symptomatic varicose veins of both lower extremities (ICD-10 - I83.893) This patient has a strong family history of varicose veins on both her mother and father side. She reports achiness, pain, and itching related to her varicose veins. We will get her started with some compression therapy and get her scheduled for a full functional venous duplex to evaluate for any venous valvular incompetence. We did review the vein handout page by page and all of her questions were addressed. She understands the importance of conservative therapy efforts with use of compression therapy, leg elevation, good skin care moisturizer therapy, weight management, and frequent activity in the overall management of her venous disease. [facility] Other 10-03-2022 NotePatient Education Materials Follows: Otitis Media, Adult Otitis media occurs when there is inflammation and fluid in the middle ear with signs and symptoms of an acute infection. The middle ear is a part of the ear that contains bones for hearing as well as air that helps send sounds to the brain. When infected fluid builds up in this space, it causes pressure and can lead to an ear infection. The eustachian tube connects the middle ear to the back of the nose (nasopharynx) and normally allows air into the middle ear. If the eustachian tube becomes blocked, fluid can build up and become infected. What are the causes? This condition is caused by a blockage in the eustachian tube. This can be caused by mucus or by swelling of the tube. Problems that can cause a blockage include: ? A cold or other upper respiratory infection. ? Allergies. ? An irritant, such as tobacco smoke. ? Enlarged adenoids. The adenoids are areas of soft tissue located high in the back of the throat, behind the nose and the roof of the mouth. They are part of the body's defense system (immune system). ? A mass in the nasopharynx. ? Damage to the ear caused by pressure changes (barotrauma). What increases the risk? You are more likely to develop this condition if you: ? Smoke or are exposed to tobacco smoke. ? Have an opening in the roof of your mouth (cleft palate). ? Have gastroesophageal reflux. ? Have an immune system disorder. What are the signs or symptoms? Symptoms of this condition include: ? Ear pain. ? Fever. ? Decreased hearing. ? Tiredness (lethargy). ? Fluid leaking from the ear, if the eardrum is ruptured or has burst. ? Ringing in the ear. How is this diagnosed? This condition is diagnosed with a physical exam. During the exam, your health care provider will use an instrument called an otoscope to look in your ear and check for redness, swelling, and fluid. He or she will also ask about your symptoms. Your health care provider may also order tests, such as: ? A pneumatic otoscopy. This is a test to check the movement of the eardrum. It is done by squeezing a small amount of air into the ear. ? A tympanogram. This is a test that shows how well the eardrum moves in response to air pressure in the ear canal. It provides a graph for your health care provider to review. How is this treated? This condition can go away on its own within 3?5 days. But if the condition is caused by a bacterial infection and does not go away on its own, or if it keeps coming back, your health care provider may: ? Prescribe antibiotic medicine to treat the infection. ? Prescribe or recommend medicines to control pain. Follow these instructions at home: ? Take ueov-arc-pfkjzhn and prescription medicines only as told by your health care provider. ? If you were prescribed an antibiotic medicine, take it as told by your health care provider. Do not stop taking the antibiotic even if you start to feel better. ? Keep all follow-up visits. This is important. Contact a health care provider if: ? You have bleeding from your nose. ? There is a lump on your neck. ? You are not feeling better in 5 days. ? You feel worse instead of better. Get help right away if: ? You have severe pain that is not controlled with medicine. ? You have swelling, redness, or pain around your ear. ? You have stiffness in your neck. ? A part of your face is not moving (paralyzed). ? The bone behind your ear (mastoid bone) is tender when you touch it. ? You develop a severe headache. Summary ? Otitis media is redness, soreness, and swelling of the middle ear, usually resulting in pain and decreased hearing. ? This condition can go away on its own within 3?5 days. ? If the problem does not go away in 3?5 days, your health care provider may give you medicines to treat the infection. ? If you were prescribed an antibiotic medicine, take it as told by your health care provider. ? Follow all instructions that were given to you by your health care provider. This information is not intended to replace advice given to you by your health care provider. Make sure you discuss any questions you have with your health care provider. Document Revised: 09/13/2021 Document Reviewed: 09/13/2021 [employer] Patient Education ? 2021 [employer] Infectious Disease Sinusitis, Adult Sinusitis is inflammation of your sinuses. Sinuses are hollow spaces in the bones around your face.Your sinuses are located: ? Around your eyes. ? In the middle of your forehead. ? Behind your nose. ? In your cheekbones. Mucus normally drains out of your sinuses. When your nasal tissues become inflamed or swollen, mucus can become trapped or blocked. This allows bacteria, viruses, and fungi to grow, which leads to infection. Most infections of the sinuses are caused by a virus. Sinusitis c (more content not included)...[id number] Evaluation [facility]* Encounter Date Diagnosis Assessment Notes Treatment Notes Treatment Clinical Notes Mar, Abnormal weight gain (ICD-10 - R63.5) Mar, Overweight (BMI 25.0-29.9) (ICD-10 - E66.3) Mar, Depression, unspecified depression type (ICD-10 - F32.9) Mar, Migraine (ICD-10 - G43.909) [facility] Other [id number] NoteHNO ID: [id number] Author: Que Rosas MD Service: ? Author Type: Physician Type: Progress Notes Filed: 03/29/2021 8:58 PM Note Text: TRANSVAGINAL OB ULTRASONOGRAM Intrauterine di/di twins consistent with clinical dates but only one with cardiac activity Ovaries - normal No free fluid See imaging tab PLAN - refer to OB Que Rosas [facility]10-11-2021 NoteHNO ID: [id number] Author: Livia Vogel Service: ? Author Type: ? Type: Progress Notes Filed: 03/29/2021 8:58 PM Note Text: Cassidy Yoon, a 36 year old is here for early OB ultrasound. This is her 1st ultrasound. Ultrasound report indicates SUSAN 11/17/21, LMP 02/09/21 2 gestation sacs Baby A-130BPM CRL 7mm 6W4D Baby B-no FHR CRL 5mm 6W1D Estimated gestational age based on dates: 6W5D Cassidy is a patient of Dr. Rosas Achieved by: IVF FET day 5 on 03/01/21; # of embryos transferred: 1 G3, P1011 Labs Component Latest Ref Rng AND Units 03/15/2021 03/22/2021 HCG Quantitative 1,223.31 13,994 Blood Type: O- History of Ectopic:Yes History of Miscarriage: No History of Abdominal Surgery: No Pain:No Bleeding: No , small discharge- mucous Plan: Progesterone and Estrace: Taking: yes Stop Date: 04/21/21 Pt advised to: Follow up with OB OB Provider: Dr. Salazar in [place] Livia Vogel Called patient to discuss plan. Patient will move on to OB. Livia Vogel March 29, 2021 1:10 [facility]10-05-2021 NoteHNO ID: [id number] Author: Roxana Rider RN Service: ? Author Type: Registered Nurse Type: Progress Notes Filed: 03/23/2021 1:31 PM Note Text: Received faxed results today from 03/22/21. Appropriate rise in HCG level. Next step for pt is to have OB ultrasound 03/29/21, order in place. VTM message sent. Called pt with HCG results. Pt denies any bleeding or pain, no OB complaints. Return 03/29/21 at 0800 for ultrasound, sent to schedulers. Reminded pt to continue taking estrace and progesterone daily as directed until instructed to stop. Pt verbalizes understanding. Roxana Rider RN March 23, 2021 8:06 [facility]10-04-2021 NoteHNO ID: [id number] Author: Roxana Rider RN Service: ? Author Type: Registered Nurse Type: Progress Notes Filed: 03/31/2021 9:50 AM Note Text: Have not received HCG levels yet from outside lab. Called pt to ensure she had test completed. Pt states she had level drawn in [place] and instructed them to fax over results. Will follow. Informed pt if dont received by the end of the day, will follow tomorrow. Pt understands. Roxana Rider RN March 22, 2021 2:30 [facility]09-27-2021 NoteHNO ID: [id number] Author: Roxana Rider RN Service: ? Author Type: Registered Nurse Type: Progress Notes Filed: 03/15/2021 3:25 PM Note Text: Called pt by listed phone number. Gave pt the results of HCG, appropriate level that indicates positive . Pt denies any OB concerns. Pt denies any vaginal bleeding and only intermittent mild cramping. Instructed pt to call office with any concerns including; heavy vaginal bleeding or severe cramping/pain. Reminded pt to continue oral estrace and progesterone injection daily until instructed to stop. Letter sent for pt to go to outside lab for HCG in 03/22/21. Placed for televisit . Roxana Rider RN March 15, 2021 3:20 [facility]09-13-2021 NoteHNO ID: [id number] Author: Que Rosas MD Service: ? Author Type: Physician Type: Procedures Filed: 03/01/2021 2:16 PM Note Text: WHI CARLITOS TRANSFER PROCEDURE NOTE Date: 03/01/2021 Primary Proceduralist: Que Rosas MD Nutrition Coordinator(s): Not applicable Informed Consent: Indications: Cassidy Yoon, is a 36 year old female here today for Embryo Transfer. [place] Protocol: Sign In: Personnel: Special Equipment: Patient/Surrogate Stated/Verified: No data was found Time Out: Provider Confirms: Intended patient and procedure match the source document(s): Consent documented and matches the intended procedure: Relevant labs, photos, and/or imaging studies have been reviewed: Correct side/site marked and visible: Medications required for procedure verified: Fire risk assessed and interventions discussed: Implants: TRANSFER Transfer Date: 03/01/21 Transfer Procedure: Embryo Transfer Transfer Physician: Que Rosas M.D. Pre-Procedure Diagnosis: Infertility Post-Procedure Diagnosis: Infertility Source of embryos: Patient Total Thawed: 1 # of Embryos Transferred: 1 ASRM Guidelines: Recommended limits adhered to Catheter Type: Velazquez Ease of Transfer: Easy Direction: Mid Depth (cm): 6.5 Distance from fundus (mm): 11 Sign Out: All specimen containers correctly labeled: All instruments, equipment, possible retained foreign bodies accounted for: Post-procedure follow-up management communicated and Plan of Care Visit completed when applicable: Specimens: None I/primary surgeon/proceduralist performed the entire procedure. SIGNATURE: Que Rosas MD PATIENT NAME: Cassidy Yoon DATE: March 01, 2021 TIME: 2:16 [facility]09-13-2021 NoteHNO ID: [id number] Author: Ramonita Guy Service: ? Author Type: Technologist Type: Progress Notes Filed: 03/01/2021 2:01 PM Note Text: Embryo Transfer procedure performed. Detailed notes can be found in the paper chart in the [facility] ? SERVICE DELIVERY MANAGER Office. Yvette Roman, [facility]09-07-2021 NoteHNO ID: [id number] Author: Livia St Lucian Service: ? Author Type: ? Type: Progress Notes Filed: 02/28/2021 9:35 PM Note Text: The patient is here today for follicular ultrasound and blood work. The patient reports no problems or complaints. Ultrasound and blood will be reviewed by the physician, the flow sheet will be updated and instructions will be communicated to the patient. Livia Vogel Unable to reach patient by phone, sent [employer] message with instructions. Asked patient to resend thaw plan and will call back after 1pm. Livia Gellersh February 23, 2021 12:52 [facility]07-23-2021 NoteHNO ID: [id number] Author: Que Rosas MD Service: ? Author Type: Physician Type: Progress Notes Filed: 01/08/2021 5:14 PM Note Text: Discussion with patient Former pt of Dr. Lafleur setting up for FET. 9 blasts in cryo from 07/05. Nl hysteroscopy 01/05. Regular 30-5 day cycles. No change in med history except started Prozac. Taking vits. PLAN - FET, thaw AND transfer 1, does not need to repeat hysteroscopy I spent a total of >10 minutes via virtual visit on the date of the service which included preparing to see the patient, uvwu-dh-nwzu patient care, completing clinical documentation, obtaining and/or reviewing separately obtained history and counseling and educating the patient/family/caregiver. Que Rosas M.D.[facility] noteNo assessment information availableLima Memorial Hospital Ctr Work Phone: History general Narrative - Reported* Type Description Date Medical History Migraines Medical History PMDD (premenstrual dysphoric dis order) Medical History depression Surgical History colonoscopy Surgical History [place] teeth 2012 Surgical History D+C ectopic Hospitalization History Childbirth 2017 [facility] Other Reason for visit Narrative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North [employer] Other Summary Purpose Family History Relationship Condition Age at Onset Recorded Date/T umberto Not Specified No pertinent family history Unknown Advance Directives No Advanced Directives Records FoundNo Advanced Directives Records FoundNo Advanced Directives Records Found Additional Source Comments INFORMATION SOURCE (unrecogn ized section and content) DATE CREATED AUTHOR 07/16/2021 [facility] DATE CREATED AUTHOR AUTHOR'S ORGANIZ ATION 03/26/2022 [facility] DATE CREATED AUTHOR AUTHOR'S ORGANIZ ATION 09/21/2022 [facility] REASON FOR VISIT (unrecogniz ed section and content) Initial WMN Goals (unrecognized section and content) Goals may be documented in a n alternate section FOR RECORDS PERTAINING TO PATIENTS WHO ARE OR HAVE BEEN ENROLLED IN A CHEMICAL DEPENDENCY/SUBSTANCEABUSE PROGRAM, SOME INFORMATION MAY BE OMITTED. This clinical summary was aggregated from multiple sources. Caution should be exercised in using it in the provision of clinical care. This summary normalizes information from multiple sources, and as a consequence, information in this document may materially change the coding, format and clinical context of patient data. In addition, data may be omitted in some cases. CLINICAL DECISIONS SHOULD BE BASED ON THE PRIMARY CLINICAL RECORDS. [employer] provides no warranty or guarantee of the accuracy or completeness of information in this document.
== END 2023-07-12 13:09 | disposition home or self-care (01) ==
LOC: VC 13:08
PROVIDERS: PCP Radiology Diagnostic Radiology; Visit Provider Radiology Diagnostic Radiology
DX: I83.813 Varicose veins of bilateral lower extremities with pain (principal)
CPT/HCPCS: 93970; G0463

== ENCOUNTER 2023-08-31 09:58 | Outpatient (OUT) | payer OTHER, SELFPAY ==
--- NOTE | 2023-08-31 10:04 | VEIN_ITS ---
The [address] [address] Patient Name: LONG YOON MRN: [id number] date: 1985 Sex: F Assigned Patient Location: Current Patient Location: Accession/Order Number: [id number] Exam Date: 08/31/2023 10:05 Report Date: 08/31/2023 10:59 At the request of: LOLA MARINELLI Procedure: VC Endovenous Ablation 1VeinRT EXAMINATION: VC Endovenous Ablation 1VeinRT HISTORY: I83.813 Bilateral painful varicose veins The risks and benefits of the procedure had been previously discussed, and were rediscussed at length. Informed written consent was obtained. Deny Dejesus RN and Vicky Perez RDMS, RVT assisted. Time out procedure was performed. The right lower extremity was prepared and draped in the usual sterile fashion to allow knee flexion in the sterile field. Duplex ultrasound probe was draped in a sterile cover, sterile transmission gel was used. Venous mapping was performed with the areas of dilation and large tributaries marked. The total length was 37 cm from the entry mid calf to 3 cm below the Saphenofemoral junction. The diameter of the right great saphenous vein ranged from 7.9 mm. A 30 gauge needle and 1% buffered lidocaine was used to anesthetize the entry site. A 4 mm incision was made with a scalpel and the saphenous vein was entered percutaneously under direct ultrasound guidance with a micropuncture set, a single stick was successful in gaining access. A micro-guide wire was inserted and the needle removed. A micro-set including a dilator was inserted over the microwire and the needle and dilator were removed. A guide wire was inserted through the micro-set and guided through the saphenous vein to the saphenofemoral junction. The dilator was removed and an introducer sheath was inserted over the wire until the end of the sheath entered the saphenofemoral junction. The dilator and wire were removed and the 600 micron fiber was introduced and placed and positioned so that it extended beyond the sheath and was 3 cm distal to the saphenofemoral or saphenopopliteal junction. Final position of the fiber was determined by ultrasound guidance and duplex imaging. Tumescent anesthetic was delivered by ultrasound guidance. 150 cc of fluid was delivered along the entire course of the saphenous vein. The solution consisted of 1000 cc of normal saline with 40 mL of 1% lidocaine and 20 mL of sodium bicarbonate. A final positioning check was made. The energy source was turned on by means of the foot pedal and the fiber and sheath were withdrawn. The total number of Joules delivered was 2240. The laser was active for 280 seconds under continuous pulse, average laser use of 8 J. Laser start time: 10:51 AM Laser stop time: 10:56 AM Date: 08/31/2023. A duplex ultrasound revealed compressibility and flow at the saphenofemoral junction immediately after the procedure. Hemostasis at the access site was achieved. The skin incision of the saphenous vein was closed with a 4 x 4. A compression stocking was applied. Postop instructions were given. A follow up appointment was recommended and scheduled. The patient tolerated the procedure well. Electronically authenticated by: BARTOLO WOODSON Date: 08/31/2023 10:59
--- OUTSIDE RECORDS SUMMARY | 2023-08-31 10:21 | XMS_ITS | CCD ---
Author Name Unknown Address [address] [place] [address] Organization [facility] Care Team Providers Care Financial Planning Advisor Name Role Phone Rishabh Hayes Unavailable Yuri Naik Admitting Unavailable Yuri Naik Attending Unavailable OBERER, ASHISH Chung Primary Care Unavailable Nataprkeshia, Marie Admitting Unavailable NatReagan parraa Attending Unavailable Nataida, Marie Admitting Unavailable Oberer, Ashish Primary Care Unavailable Colby Callejas Attending Unavailable Chucho Barroso Admitting Unavailable Chucho Barroso Attending Unavailable Jennifer Roberson Admitting Unavailable Jennifer Roberson Attending Unavailable Oberer, Ashish Primary Care Unavailable Rishabh Hayes Admitting [...] Range Facility Coding Summaryon 03-25-2022 Coding Summary HTMLBase 64 [id number] YR3LBzcO2YkilWq EcdftMXnLJ83TNt5OBB1cMs pLJdgiF3lsOAsT3f2TxCgRH 44mL70UOsqKEAiJvB5PyFdb jsgbWFy S5xpZaQsvVArTzb+PHRhYmx lIHdpZHRoPScxMDAlJyBzdH olUY1kMf4hCCZuKNSfbKuql HNlOiBj t8oaBCRvAAsmHH2maLxuZ1C ugZF1SMPsz3n0Iz67dKJ+PH XfGOY4xEekTMekq816GmChk 9atWCY6 gSDpJJvcINH9S96gl9L4OXM sGYMgMWS3vQG4vA8tsRlbku jwU9HbwSYwDeR9FLK6zZBli E9duAfk kihuhV4fCtp+E21KHJ8ONDA ZKP1JAfi0F6SbCmgkxFH+PC 97EFOeSM90qZOynMEaf3drc Od3QhKj DLKeWON5cEfdUMuaj5WdVVU gX36bvJRqa4M4PECsgQmaxU HqZpHpeUM4aD6gXYiyskugq 2hvdzsn Ejoza2ukca68vX25R31zBMi fCLNfVRK0YRMcAMJhzKaawd 1cgG7xGs7+WMemh7trp9gsw Hc6GiSu FMPapqXwsWbgXYM1u0MsCq4 2S7XtnGajp5XcJlt0gn96cP Iie7U3mLC0WYpmEXHtsD3bO WxlZnQ6 QTYgNePbjN09wGZiKPryJv1 ctMoftZckOE7fGEXqicmaET HmoF3gDLKbgHNwtMxrWD7eT TBpbjtm t284TaZqJGD9UQBdbONxI7E slB6bUeOkZEMiZCOgG1BrpP MzOVixH054JXyfJeW7RSEwx hBiE0By HLMdsVeiCeO4f5F7Pw0Xn2E nzeosTFF7OCbcQJGvJmN0Ve VlZhY2Q5IzOgf3GLZheOvbC T3dT0Xf DQRxuliagcfalCX3QETuBXH lnN00iXHbVUseVl5gm9K0z9 83KYMhXASysD94Qd1mqWweW TBwdCBU dD4vvsapl0qfzehnZsXwUKH mXKc3YPo9VWLauJuyNuCfXU V3VoP1OQB9bAZhyY4rgDyip wdvwY2k Oyc+I17poP4rSNF4WJP8tht aPKIttdKqOT65YP42P1QaCu wvdGFibGU+PGRpdiBzdHlsZ O7eRbBs u3hxt4SsJLjaV1ElMHRtXXc vMgu2IXCiHMA1cSP4aS7aLC ZiGVphl7H8oAQ9M2FpzhGcb o0tg5fl KFRbMPhyU58jeMBaz3M2MIC jlIM9YAIklVphLtBmnG26Mg c+WNXvfDtfk7TbFwgpw4jan 7uieAr5 GdXvPRKpvhUtxZhxPKS4w7I rQv59C46gJNziHTMjINYqTC BcKJRjaUtbkt7ehP3qWt7+P GNvbCB3 tKY7aB6pJNVsDuP4GQcjG31 1GoXnvWQxGaywd7rmb0eitH f1KvYhDJPfsoRtlHliGKG0a 1ToFe00 Y75fZZavBOMiAVWzFYLwUZB noKshad2jhK1yVm2+PC9jb2 rwuq38uM27tDC+WNTgYZB8j WxlPSdw WHZntV4nIExqSkL6DCAaKbB ldP88qGWsDQmwMe9pkKsxcO ykCX0lDMYhaeacq754BtGqw 2xkIDEw yYRaPJntSFI2G01tk3X9AMT oZXAeBEO8tXS8uN5cbAsmuz ogbGVmdDsgdmVydGljYWwtY LkeQ241 IHRvcDsnPlBhdGllbnQgTmF hHSb9P5GnWbr5ZIBlaMneRA 1tzSUmNQumQp7vzCiqxFuhJ J3vOCWt zsvii910GsZuv1gaXYMnfYA tQMemAIA9L08bo4F8TGRyYK FxVTE1nTW9nT5obObknylij GVmdDsg mjOlhUjuAKscQDllB111OVG ecRxmPmPogeTcUHMxzFL5WZ 13WG65uQHrm9Y2rSX3D4UgF GRpbmct biwdaDV1UUNiQRVpyH45Sw0 gcIihPg0xZLAgKMZ5KZGkrT VmS3WrzT1aSaWzNDCkQOFlV 3RleHQt SQcuT007XXnkZoF2LXRzvgM eG3BrBZBmsYolUeH5i9J9Ha 9KP0N8UG06OT32rUKrp5M3c VQ8W3Db XVNtjcsdtwuvcZJ3KRJyNDV utI70Dd8jlQnqMp4mKVNkQX C6OXIjvROeH2KxlN8iPdRoM DAwMDAw B9ZyeVGlKXidF562YVaiCmQ 3ACLiayUiV7UyHKCaxVmzEl Y8i9M3Ow0WKVb5TF79NQ30k SGay8W1 fNA6V7QdHDEwccutlcvhkIM 0WOOzGLDflW65Mi3nlMcrHr 3fKWVvNQE4KZWhtYEvB9Efq N9xRlRr IQLbNZLaU7OieYUbRHgtA14 6UIkfHjO6FVXnakIfR4BhMM WppDxhKlX5k0W6Ix3JSBLrD W03LOJ4 iFU1RS89CF18I7YtPjdufCF ibGU+PHRhYmxlIHdpZHRoPS snZSQgYiZpoZotBA4zJe6wN GVyLWNv yVxzbMHkLkGgt7czQGIsLKu qOH0ioJjgM4UriUZ6TWCfp8 a2Vf71A84hH0SbrXP+PGNvb XI4xGR0 tF9iUvAjPyP8ZGlmQ057EfT gmLCiGssth9lou4vfnGe1Jz Q9VNVdgzPbyVyjCUE0i4JcZ r99Q47z IHdpZHRoPSIxNSUiIHZhbGl lig3wpP2zIu0+TKJgcJC5dP I0bG3lAxPmShR6UHsgW827F nRvcCIv Ynwdo4lmf8okiLt1IqBxCBV dfmJojPseRER1w2QkGc71Y8 HgdFcuk6XiCuh9ir15vYKkh 3H4lEI2 M0DiMVJagnnwoMSnnXypSJ5 gCQOmuqwuAYTqtJ9eTPAfS3 z8WkYvBiJ0FZjhJ9FvmwG6X DEwcHQg NFrhJTA0O98wg0B6POAtOBL jTDM6wXB3fL0abYhxdnxztR VmdDsgdmVydGljYWwtYWxpZ 246IHRv sQoiZJJggO4kOSWnuUBozMc yMM2tPDGojozvXyoFVOKHDN 4sIEVMSVpBQkVUSCBKRUFOP C11MX83 cUSum3X1cLD2W0TvTTUzdhb nhvxbqAS8ZNIzKEEfbU17cA LjRVrjEg1ty5Q7u965VKUvE DUwaW47 Bb5fuKmwFTXdgTCMgA4qonz qm7epxyxeBzHpCWNnVCh9RY a6OOPdhYhvDrXhPDB6EuS7W OX6yXMd tY0qeKoguhqbhD1eJbm+MDk gSAQuJXo0TUiozEK+PHRkIH S2cUxoVFufPLIlsM6lRHAmV 8o3VtTg WrF7NYscU2KzZFLyblboXe7 4iE1gWlTvUsE4NDjpH4Lgoh S6CNZdfQYlRGpbVZX0H39cu 1M0WUSe TIHgZJV6rKC9lB1doLtohan gbGVmdDsgdmVydGljYWwtYW ldB251JLVpgCuxWwY1RAlsC XJzPC90 LK96dMPmz7O9yKW2X3VhEXW kvkrjbbyasZK3ALBkBBMvsN 09aOGuQOtrIc4aw5X6g659J DAuMDUw zJ54Td7fiEhbQLIoqUXZwJ7 narckk6bppjzsQyTjVINhFH g5QOl3DMSifRkuJvVmFVB2N iL9QJH9 qXYpiQ6qyTntvymamT8vPry +LbSSKNhSFG80TV45jNOiq7 Q3kCT1X9RkYKTqekuhknriv YP8ZMZf QOBxxQ45tKMwFWgaXv6pb1R 3i991QFTiPWHsfJ91Gs8hgQ zeFYTxaOELuA0zrzifl2rsj jogIzAw SJBmMEn0VYw7TROdhVguEyI dMMB2VtH1VDN1rJNhpX6snE jvcdwoxG7hNso+A9V3C7AnY jwvdHI+ NQ90QXLpLM82hXTonFXel3z slXe7WlJoPBBwMFV2oGkdQL rah2WjSXTcK93ndCTzo9F7Y GNvbGxh lGXxGfHkfRY1aE3zJXfcsqr sr9ncnzezRldvl0ltgv45hS 62Y16aGIzgKMTeEGVnQZMmB HZhbGln ue6nxD2fMx2+BJIegDO2fTA 4yK7pEiTxQlG2ANgfB460Rr UvcAUjAgdfa6cur3ukwXx6D jIwJSIg weSqqXstNRA8r3BpGa02K85 sIHdpZHRoPSIyMCUiIHZhbG lgsw8icO8rJu1+MY0tw7qkt f22iG93 dHI+NTGlKLD7hFfvNBlzPQA iyW8wKKwxEuU8EZRwXkQtqQ 87yDDdYIedWr2cgCyoaHuqV S4xELXx xlnqr576ZuEzd2ygTXRqrCT uHNjnWRN9K86db7Y1LEXfMJ YhPUX2zZM7nA5xsGpnqcuzw GVmdDsg vkKaoGwsQUaiKNinK881FWM xoKrwQjLjbCDhY8rdbrVARD 1lOjwvdGQ+QQMcQLU0pMzzQ SdwYWRk iB2pPVYeT0b7GjVlHmQ5BJw lI9TiacM0XNRkeQGhPGYxmI WAbN0ralzdl9qzisaeRmAaS DAwMDt0 QLd9LVJnrDmsSoAnTOM4PtU 2LLR8xEQfcL8zcOarpfquiH 9wOyc+RklOOjwvdGQ+PHRkI AI9oHxc QDfjMEWkcO2gOELaP9o8EpV gYrY8PTywQ1MeoeX5KGOamU UjSPGsyPRFjO1butirq9gtm jogIzAw KKIxCLl1DPk0JRAeyWzeDdO vPQJ8DjJ4NYN5wCPivZ7poC wpwrmkzS3ySjj+TVJOOjwvd GQ+PHRk JKE3dHomMPxnDTLasI1yRGJ oR0r2SwEvYuO9SCtaP8Odtz E5RIUgbKSqYLMzvGKUfL4rp gxcv7ox xvqiKeHtPCGoQKr6TIa3MFA nrGxvPsPvKFE3IoX4XHL8tY PbyX0rrQpfemthlM4bQbv+U NO6FTY6 YX17EA51K2BuFzytyIDbcDO +PHRhYmxlIHdpZHRoPScxMD JuRcSxeZwcIK9yOu6xGWCoP WNvbGxh cHN (more content not included)... Normal [facility] ED Clinical Summaryon 2021 ED Clinical Summary [facility] ? Urgent Care [address] [place], [place] [id number] Clinical Summary PERSON INFORMATION Name: CASSIDY YOON Age: 37 Years Sex: FEMALE : 1985 MRN: Acct#: Visit Reason: Cough; UC - Sore Throat; CONGESTION, SORE THROAT, BODY ACHES Arrival: 03/21/2022 11:57:18 Discharge: 03/21/2022 13:07:00 LOS: 000 01:10 Check In: 03/21/2022 11:57:18 Checkout: 03/21/2022 13:07:00 Address: Clarisse HERNANDEZ [facility] [address] PCP: ASHISH HAIDER PROVIDER INFORMATION Provider Role Assigned Unassigned Yuri Geiger ED PA 03/21/2022 12:00:10 Fior Shields HUSBANDRY PERSON Nurse 03/21/2022 12:08:48 VITALS INFORMATION Vital Sign [...] Adult Follow-Up: With: Address: When: ASHISH HAIDER [address] [place] [address] [facility] (1) Within 2 to 4 days Comments: [...] r verbalizes understanding of instructions given Comment: [facility] ED Note-Nursingon 03-21-2022 ED Note-Nursing pa in room for exam [facility] ED Patient Summaryon 022 ED Patient Summary [facility] ? Urgent Care [address] [place], [place] [id number] PATIENT DISCHARGE INSTRUCTIONS Patient Information Name: KARRIECASSIDY Age: 37 Years Date of : 1985 Reason For Visit: Cough; UC - Sore Throat; CONGESTION, SORE THROAT, BODY ACHES Arrival Time: 03/21/2022 11:57:18 Primary Care Physician: ASHISH HAIDER Attending Physician: Yuri Geiger Comment: Patient Education With: Address: When: ASHISH HAIDER [address] [place] [address] Business (1) Within 2 to [...] home: Medicines ? Take, use, or apply emkz-xhs-ivvarab and prescription medicines only as told by your health care provider. These may include nasal sprays. ? If you were prescribed an antibiotic medicine, take it as told by your health care provider. Do not stop taking the antibiotic even if you start to feel better. Hydrate and humidif (more content not included)... Normal [facility] Urgent Care Note- Provideron 03-21-2022 Urgent [...] for 2 weeks. states went to [facility] 2 weeks ago and was [...] and Plan Diagnosis Acute left otitis media (OFF65-HK H66.92, Discharge, Medical) (more content not included)... Normal [facility] Recordon 022 Urgent Care Record [facility] ? Urgent Care [address] [place] [address] PATIENT DISCHARGE INSTRUCTIONS Patient Information Name: CASSIDY YOON Age: 37 Years Date of : 1985 Reason For Visit: Cough; UC - Sore Throat; CONGESTION, SORE THROAT, BODY ACHES Arrival Time: 03/21/2022 11:57:18 Primary Care Physician: ASHISH HAIDER Attending Physician: Yuri Geiger Comment: Visit Diagnosis: Diagnoses This Visit Acute left otitis media (H66.92) Acute maxillary sinusitis (J01.00) Cough ([id number]) Hypertrophy of nasal turbinates (J34.3) UC - Sore Throat ([id number]) If you received any narcotics, sedation, or [...] legal documents With: Address: When: ASHISH HAIDER [facility] [address] Business (1) Within 2 to [...] and treatment you received today in the [facility] Care were for an urgent problem and are not intended as complete care. It is important for you to follow up with a doctor, nurse practitioner, or physician?s certified ophthalmic assistant for ongoing care. If your symptoms [...] so we can reach you if necessary. [facility] has provided you with a complete list of medications post discharge. 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 Any specific questions regarding your chronic medications and dosages should be discussed with your primary care physician(s) and/or pharmacist. New Medications [facility] [address] [place], [place] [id number], [phone] azithromycin (Azithromycin 5 Day Dose Pack 250 [...] Behind you (more content not included)... Normal [facility] Complete Blood Count Auto Di ffon 11-12-2021 Basophils (Bld) [#/Vol] 0.0 10*3/uL Normal 0.0-0.2 [facility] Comment on above: Order Comment: Comme nt Draw at 630 am Result Comment: PERF ORMED BY: [address] [address] PATHOLOGIST DESTINATION SIGN REPAIRER CELESTINO LONG M.D. Performed By: #### C #### [address] Basophils/100 WBC (Bld) 0.4 % Normal . [facility] Comment on above: Order Comment: Comme nt Draw at 630 am Performed By: #### C BC #### [address] Eosinophils (Bld) [#/Vol] 0.1 10*3/uL Normal 0.0-0.45 [facility] Comment on above: Order Comment: Comme nt Draw at 630 am Performed By: #### C BC #### [address] Eosinophils/100 WBC (Bld) 0.9 % Normal . [facility] Comment on above: Order Comment: Comme nt Draw at 630 am Performed By: #### C BC #### [address] Erythrocyte distribution width (RBC) [Ratio] 13.5 % Normal 11.9-15.3 [facility] Comment on above: Order Comment: Comme nt Draw at 630 am Performed By: #### C BC #### [address] Hematocrit (Bld) [Volume fraction] 26.9 % Low 34.0-46.4 [facility] Comment on above: Order Comment: Comme nt Draw at 630 am Performed By: #### C BC #### [address] Hemoglobin (Bld) [Mass/Vol] 8.9 g/dL Low 11.8-15.4 [facility] Comment on above: Order Comment: Comme nt Draw at 630 am Performed By: #### C BC #### [address] Lymphocytes (Bld) [#/Vol] 2.9 10*3/uL Normal 1.00-4.8 [facility] Comment on above: Order Comment: Comme nt Draw at 630 am Performed By: #### C BC #### [address] Lymphocytes/100 WBC (Bld) 30.4 % Normal . [facility] Comment on above: Order Comment: Comme nt Draw at 630 am Performed By: #### C BC #### [address] MCH (RBC) [Entitic mass] 29.3 pg Normal 24.7-34.3 [facility] Comment on above: Order Comment: Comme nt Draw at 630 am Performed By: #### C BC #### [address] MCV (RBC) [Entitic vol] 88.5 fL Normal 80-100 [facility] Comment on above: Order Comment: Comme nt Draw at 630 am Performed By: #### C BC #### [address] Mean Corpuscular HGB Conc 33.2 g/dL Normal 32.0-35.0 [facility] Comment on above: Order Comment: Comme nt Draw at 630 am Performed By: #### C BC #### [address] Monocytes (Bld) [#/Vol] 0.6 10*3/uL Normal 0.0-0.8 [facility] Comment on above: Order Comment: Comme nt Draw at 630 am Performed By: #### C BC #### [address] Monocytes/100 WBC (Bld) 5.8 % Normal . [facility] Comment on above: Order Comment: Comme nt Draw at 630 am Performed By: #### C BC #### [address] Neutrophils (Bld) [#/Vol] 6.0 10*3/uL Normal 1.8-7.7 [facility] Comment on above: Order Comment: Comme nt Draw at 630 am Performed By: #### C BC #### [address] Neutrophils/100 WBC (Bld) 62.5 % Normal . [facility] Comment on above: Order Comment: Comme nt Draw at 630 am Performed By: #### C BC #### [address] Nucleated RBC/100 WBC (Bld) [Ratio] 0.0 % Normal 0-0.5 [facility] Comment on above: Order Comment: Comme nt Draw at 630 am Performed By: #### C BC #### [address] Platelet mean volume (Bld) [Entitic vol] 9.8 fL Normal 6.3-10.7 [facility] Comment on above: Order Comment: Comme nt Draw at 630 am Performed By: #### C BC #### [address] Platelets (Bld) [#/Vol] 182 10*3/uL Normal 150-450 [facility] Comment on above: Order Comment: Comme nt Draw at 630 am Performed By: #### C BC #### [address] RBC (Bld) [#/Vol] 3.04 10*6/uL Low 3.60-5.00 [facility] Comment on above: Order Comment: Comme nt Draw at 630 am Performed By: #### C BC #### [address] WBC (Bld) [#/Vol] 9.6 10*3/uL Normal 4.5-11.0 [facility] Comment on above: Order Comment: Comme nt Draw at 630 am Performed By: #### C BC #### [address] Screenon 11-11-2021 Screen Negative Normal [facility] Comment on above: Order Comment: Needs drawn per Dulce Maria in Blood Bank. MLG Result Comment: 1 do se(300mcg)of RhoGAM indicated Rhogam Workupon 11-11-2021 Rhogam Candidate Yes Normal [facility] Comment on above: Order Comment: Needs drawn per Dulce Maria in Blood Bank. MLG RHOGAM DOSE POST Normal [facility] Comment on above: Order Comment: Needs drawn per Dulce Maria in Blood Bank. MLG Result Comment: See Fetalscreen result PERFORMED BY: [facility] [address] [place] [id number] PATHOLOGIST DESTINATION SIGN REPAIRER CELESTINO LONG M.D. ABO and Rh group Nom (Bld) Blood group O Rh(D) negative Normal [facility] Comment on above: Order Comment: Needs drawn per Dulce Maria in Blood Bank. MLG Result Comment: PERF ORMED BY: [facility] [address] [place] [address] PATHOLOGIST DESTINATION SIGN REPAIRER CELESTINO LONG M.D. COVID-19 Antigenon 2 COVID-19 [...] developed and its performance characteristic determined by [employer] and validated at [facility]. This test has not been FDA cleared [...] for SARS Antigen by [facility] PERFORMED BY: [place] [address] PATHOLOGIST DESTINATION SIGN REPAIRER CELESTINO LONG M.D. Normal [facility] Comment on above: Performed By: #### C OVID-19 ROWAN, SOFIANEG #### [address] Complete Blood Count Auto Di ffon 11-10-2021 Basophils (Bld) [#/Vol] 0.0 10*3/uL Normal 0.0-0.2 [facility] Comment on above: Result Comment: PERF ORMED BY: [place] [address] PATHOLOGIST DESTINATION SIGN REPAIRER CELESTINO LONG M.D. Performed By: #### C BC #### [address] #### RPR W RFX #### [facility] , Basophils/100 WBC (Bld) 0.4 % Normal . [facility] Comment on above: Performed By: #### C BC #### [address] #### RPR W RFX #### [facility] , Eosinophils (Bld) [#/Vol] 0.1 10*3/uL Normal 0.0-0.45 [facility] Comment on above: Performed By: #### C BC #### [address] #### RPR W RFX #### [facility] , Eosinophils/100 WBC (Bld) 1.0 % Normal . [facility] Comment on above: Performed By: #### C BC #### [address] #### RPR W RFX #### [facility] , Erythrocyte distribution width (RBC) [Ratio] 13.8 % Normal 11.9-15.3 [facility] Comment on above: Performed By: #### C BC #### [facility] [address] [place] [address] #### RPR W RFX #### [facility] , Hematocrit (Bld) [Volume fraction] 32.7 % Low 34.0-46.4 [facility] Comment on above: Performed By: #### C BC #### [facility] [address] [place] [address] #### RPR W RFX #### [facility] , Hemoglobin (Bld) [Mass/Vol] 10.9 g/dL Low 11.8-15.4 [facility] Comment on above: Performed By: #### C BC #### [address] #### RPR W RFX #### [facility] , Lymphocytes (Bld) [#/Vol] 2.6 10*3/uL Normal 1.00-4.8 [facility] Comment on above: Performed By: #### C BC #### [facility] [address] [place] [address] #### RPR W RFX #### [facility] , Lymphocytes/100 WBC (Bld) 31.3 % Normal . [facility] Comment on above: Performed By: #### C BC #### [facility] [address] [place] [address] #### RPR W RFX #### [facility] , MCH (RBC) [Entitic mass] 29.2 pg Normal 24.7-34.3 [facility] Comment on above: Performed By: #### C BC #### [address] #### RPR W RFX #### [facility] , MCV (RBC) [Entitic vol] 87.3 fL Normal 80-100 [facility] Comment on above: Performed By: #### C BC #### [facility] [address] [place] [address] #### RPR W RFX #### [facility] , Mean Corpuscular HGB Conc 33.5 g/dL Normal 32.0-35.0 [facility] Comment on above: Performed By: #### C BC #### [facility] [address] [place] [address] [place] #### RPR W RFX #### [facility] , Monocytes (Bld) [#/Vol] 0.6 10*3/uL Normal 0.0-0.8 [facility] Comment on above: Performed By: #### C BC #### [facility] [address] [place] [address] #### RPR W RFX #### [facility] , Monocytes/100 WBC (Bld) 7.1 % Normal . [facility] Comment on above: Performed By: #### C BC #### [facility] [address] [place] [address] #### RPR W RFX #### [facility] , Neutrophils (Bld) [#/Vol] 5.0 10*3/uL Normal 1.8-7.7 [facility] Comment on above: Performed By: #### C BC #### [facility] [address] [place] [address] [place] #### RPR W RFX #### [facility] , Neutrophils/100 WBC (Bld) 60.2 % Normal . [facility] Comment on above: Performed By: #### C BC #### [facility] [address] [place] [address] [place] #### RPR W RFX #### [facility] , Nucleated RBC/100 WBC (Bld) [Ratio] 0.1 % Normal 0-0.5 [facility] Comment on above: Performed By: #### C BC #### [facility] [address] [place] [address] #### RPR W RFX #### [facility] , Platelet mean volume (Bld) [Entitic vol] 9.7 fL Normal 6.3-10.7 [facility] Comment on above: Performed By: #### C BC #### [facility] [address] [place] [address] #### RPR W RFX #### [facility] , Platelets (Bld) [#/Vol] 222 10*3/uL Normal 150-450 [facility] Comment on above: Performed By: #### C BC #### [facility] [address] [place] [address] #### RPR W RFX #### [facility] , RBC (Bld) [#/Vol] 3.75 10*6/uL Normal 3.60-5.00 [facility] Comment on above: Performed By: #### C BC #### [address] #### RPR W RFX #### [facility] , WBC (Bld) [#/Vol] 8.4 10*3/uL Normal 4.5-11.0 [facility] Comment on above: Performed By: #### C BC #### [facility] [address] [place] [address] #### RPR W RFX #### [facility] , OB Urine Drug Screen (NO THC )on 11-10-2021 Amphetamine Screen,Urine Negative Normal Negative [facility] Comment on above: Performed By: #### U A OBUDS #### [address] Barbiturate Screen,Urine Negative Normal Negative [facility] Comment on above: Performed By: #### U A OBUDS #### [address] Benzodiazepines Screen,Urine Negative Normal Negative [facility] Comment on above: Performed By: #### U A, OBUDS #### [address] Cocaine Screen,Urine Negative Normal Negative [facility] Comment on above: Performed By: #### U A, OBUDS #### [address] Opiate Screen,Urine Negative Normal Negative [facility] Comment on above: Performed By: #### U A, OBUDS #### [address] Phencyclidine Screen, Urine Negative Normal Negative [facility] Comment on above: Result Comment: Thes e are unconfirmed results and should not be used for legal purposes. Drug Cut-Off Concentration: AMPH 1000 ng/mL RADHA 200 ng/mL FERMIN 200 ng/mL COCM 300 ng/mL OP 300 ng/mL PCP 25 ng/mL PERFORMED BY: [place] [address] PATHOLOGIST DESTINATION SIGN REPAIRER CELESTINO LONG M.D. Performed By: #### U A, OBUDS #### [address] RPR w/rfx to Quant TP Abson 11-10-2021 RPR, Rfx Quant RPR Non-Reactive Normal Non Reactive [facility] Comment on above: Result Comment: Perf ormed at: CB - [facility] [address] [id number] Electrocardiographic Technician: Jose Baeza PhD, Phone: [phone] PERFORMED BY: [place] [address] PATHOLOGIST DESTINATION SIGN REPAIRER CELESTINO LONG M.D. Performed By: #### C BC #### [address] #### RPR W RFX #### [facility] , Rowan Ag Negativeon 11-11-19 Rowan Ag Negative Negative Normal Negative [facility] Comment on above: Result Comment: This is a duplicate Rowan SARS Antigen (SHILA) result to be used for statistical tracking purpose only. PERFORMED BY: [place] [address] PATHOLOGIST DESTINATION SIGN REPAIRER CELESTINO LONG M.D. Performed By: #### C OVID-19 ROWAN, SOFIANEG #### [address] Urinalysison 11-10-2021 Appearance (U) Clear Normal Clear [facility] Comment on above: Order Comment: Name Collection Type:: Clean-Voided Midstream Performed By: #### U A, OBUDS #### [address] Bilirubin,Urine Negative Normal Negative [facility] Comment on above: Order Comment: Name Collection Type:: Clean-Voided Midstream Performed By: #### U A, OBUDS #### [address] Color (U) Yellow Normal Yellow [facility] Comment on above: Order Comment: Name Collection Type:: Clean-Voided Midstream Performed By: #### U A, OBUDS #### [address] Glucose Ql (U) Normal Normal Normal [facility] Comment on above: Order Comment: Name Collection Type:: Clean-Voided Midstream Performed By: #### U A, OBUDS #### [facility] [address] [place] [address] [place] Ketones Ql (U) Negative Normal Negative [facility] Comment on above: Order Comment: Name Collection Type:: Clean-Voided Midstream Performed By: #### U A, OBUDS #### [address] Leukocyte esterase Test strip Ql (U) Negative Normal Negative [facility] Comment on above: Order Comment: Name Collection Type:: Clean-Voided Midstream Performed By: #### U A, OBUDS #### [facility] [address] [place] [address] [place] Nitrite,Urine Negative Normal Negative [facility] Comment on above: Order Comment: Name Collection Type:: Clean-Voided Midstream Performed By: #### U A, OBUDS #### [place] [address] [place] Occult Blood,Urine Negative Normal Negative [facility] Comment on above: Order Comment: Name Collection Type:: Clean-Voided Midstream Result Comment: PERF ORMED BY: [place] [address] PATHOLOGIST DESTINATION SIGN REPAIRER CELESTINO LONG M.D. Performed By: #### U A, OBUDS #### [address] pH (U) 6.5 [pH] Normal 5.0-9.0 [facility] Comment on above: Order Comment: Name Collection Type:: Clean-Voided Midstream Performed By: #### U A, OBUDS #### [place] [address] [place] Protein,Urine Negative Normal Negative [facility] Comment on above: Order Comment: Name Collection Type:: Clean-Voided Midstream Performed By: #### U A, OBUDS #### [place] [address] [place] Specificy [place],Urine 1.005 Normal 1.001-1.030 [facility] Comment on above: Order Comment: Name Collection Type:: Clean-Voided Midstream Performed By: #### U A, OBUDS #### [facility] [address] [place] [address] [place] Urobilinogen,Urine Normal Normal Normal [facility] Comment on above: Order Comment: Name Collection Type:: Clean-Voided Midstream Performed By: #### U A, OBUDS #### [address] OB Urine Drug Screen (NO THC )on 11-03-2021 Amphetamine Screen,Urine Negative Normal Negative [facility] Comment on above: Performed By: #### O BUDS, UA #### [address] Barbiturate Screen,Urine Negative Normal Negative [facility] Comment on above: Performed By: #### O BUDS, UA #### [address] Benzodiazepines Screen,Urine Negative Normal Negative [facility] Comment on above: Performed By: #### O BUDS, UA #### [address] Cocaine Screen,Urine Negative Normal Negative [facility] Comment on above: Performed By: #### O BUDS, UA #### [address] Opiate Screen,Urine Negative Normal Negative [facility] Comment on above: Performed By: #### O BUDS, UA #### [address] Phencyclidine Screen, Urine Negative Normal Negative [facility] Comment on above: Result Comment: Thes e are unconfirmed results and should not be used for legal purposes. Drug Cut-Off Concentration: AMPH 1000 ng/mL RADHA 200 ng/mL FERMIN 200 ng/mL COCM 300 ng/mL OP 300 ng/mL PCP 25 ng/mL PERFORMED BY: [place] [address] PATHOLOGIST DESTINATION SIGN REPAIRER CELESTINO LONG M.D. Performed By: #### O BUDS, UA #### [address] Urinalysison 11-03-2021 Appearance (U) Clear Normal Clear [facility] Comment on above: Order Comment: Name Collection Type:: Clean-Voided Midstream Performed By: #### O BUDS, UA #### [address] Bilirubin,Urine Negative Normal Negative [facility] Comment on above: Order Comment: Name Collection Type:: Clean-Voided Midstream Performed By: #### O BUDS, UA #### [facility] [address] [place] [address] [place] Color (U) Yellow Normal Yellow [facility] Comment on above: Order Comment: Name Collection Type:: Clean-Voided Midstream Performed By: #### O BUDS, UA #### [facility] [address] [place] [address] [place] Glucose Ql (U) Normal Normal Normal [facility] Comment on above: Order Comment: Name Collection Type:: Clean-Voided Midstream Performed By: #### O BUDS, UA #### [place] [address] [place] Ketones Ql (U) Negative Normal Negative [facility] Comment on above: Order Comment: Name Collection Type:: Clean-Voided Midstream Performed By: #### O BUDS, UA #### [address] Leukocyte esterase Test strip Ql (U) Negative Normal Negative [facility] Comment on above: Order Comment: Name Collection Type:: Clean-Voided Midstream Performed By: #### O BUDS, UA #### [facility] [address] [place] [address] [place] Nitrite,Urine Negative Normal Negative [facility] Comment on above: Order Comment: Name Collection Type:: Clean-Voided Midstream Performed By: #### O BUDS, UA #### [facility] [address] [place] [address] [place] Occult Blood,Urine Negative Normal Negative [facility] Comment on above: Order Comment: Name Collection Type:: Clean-Voided Midstream Result Comment: PERF ORMED BY: [place] [address] PATHOLOGIST DESTINATION SIGN REPAIRER CELESTINO LONG M.D. Performed By: #### O BUDS, UA #### [facility] [address] [place] [address] [place] pH (U) 6.5 [pH] Normal 5.0-9.0 [facility] Comment on above: Order Comment: Name Collection Type:: Clean-Voided Midstream Performed By: #### O BUDS, UA #### [facility] [address] Protein,Urine Negative Normal Negative [facility] Comment on above: Order Comment: Name Collection Type:: Clean-Voided Midstream Performed By: #### O BUDS, UA #### [facility] [address] Specificy [place],Urine 1.005 Normal 1.001-1.030 [facility] Comment on above: Order Comment: Name Collection Type:: Clean-Voided Midstream Performed By: #### O BUDS, UA #### [facility] [address] [place] [address] Urobilinogen,Urine Normal Normal Normal [facility] Comment on above: Order Comment: Name Collection Type:: Clean-Voided Midstream Performed By: #### O BUDS, UA #### [facility] [address] [place] [address] Strep B Cultureon 10-13-2021 Strep B Culture Reason for Exam 35 weeks gestation of ; screening for stre Vaginal/Rectal No Group B Beta Streptococcus Isolated 3 Days PERFORMED BY: [place] [address] PATHOLOGIST DESTINATION SIGN REPAIRER CELESTINO LONG M.D. [facility] Comment on above: Performed By: #### C USTB #### [address] CNNURSEon 03-29-2021 CNNURSE Nurse Visit (ERIC) CASSIDY YOON ([id number]) 1985 F Date Time Provider Department 03/29/21 8:00 AM NURSE CARLITOS [facility] REJ ERIC During your visit today, we [...] with OB OB Provider: Dr. Salazar in [place] Livia Vogel Called patient to discuss plan. [...] Encounter Status:Closed by QUE ROSAS on 03/29/21 [facility] C[facility] Tele[facility] (REIBD) CASSIDY YOON ([id number]) 1985 F Date Time Provider Department 03/22/21 [...] Encounter Status:Closed by ROXANA RIDER on 03/23/21 [facility] 03-11-2021 [facility] Telephone (REIBD) CASSIDY YOON ([id number]) 1985 F Date Time Provider Department 03/11/21 QUE ROSAS During your visit today, we recorded the following information about you: Marivel Phipps 03/11/2021 1:48 PM Signed Pt. Needs progesterone refill sent to [facility] Please. Thank You! Alexandrea Guzman 03/11/2021 2:21 PM Signed Progesterone reordered to [facility]. Alexandrea Guzman March 11, 2021 2:21 PM Allergies As of Date: 03/11/2021 (No Known Allergies) Date Reviewed: 03/01/2021 Reviewed by: Nuvia Judd RN - Fully Assessed Reason for Visit: Nurse To Address [363] Order(s):progesterone 50 mg/mL injectionInject 1 mL intramuscularly [...] Encounter Status:Closed by QUE ROSAS on 03/13/21 [facility] CNCOon 03-01-2021 CNCO Letter Text Normal [facility] CNOVon 03-01-2021 CNOV Office Visit (IVFBE) CASSIDY YOON ([id number]) 1985 F Date Time Provider Department 03/01/21 2:00 PM QUE ROSAS IVFBE During your visit today, we recorded the following information about you: Nuvia Judd RN 03/01/2021 1:48 PM Signed POST EMBRYO TRANSFER INSTRUCTIONS ? You will need to have your blood drawn for Quantitative HCG on 03/15/21 at [place]. You can expect to be called the afternoon of your blood draw with your test results. If for any reason that date or location is changed, please call [phone] to inform us. ? Continue your current [...] If you have any questions, please call [phone]. Que Rosas MD 03/01/2021 2:16 PM Signed WHI CARLITOS TRANSFER PROCEDURE NOTE Date: 03/01/2021 Primary Proceduralist: Que Rosas MD Agriculture Scientist(s): Not applicable Informed Consent: Indications: Cassidy Yoon, is a 36 year old female here today for Embryo Transfer. Lando Protocol: Sign In: Personnel: Special Equipment: Patient/Surrogate [...] 50 mg/m (more content not included)... Normal [facility] CNOV Office Visit (ANDRBE ) CASSIDY YOON ([id number]) 1985 F Date Time Provider Department 03/01/21 2:00 [facility] During your visit today, we recorded the following information about you: Ramonita Guy 03/01/2021 2:01 PM Signed Embryo Transfer procedure performed. Detailed notes can be found in the paper chart in the [facility] ? SCIENTIST Office. Ramonita Guy Referring Provider: SELF [200] [...] Encounter Status:Closed by YVETTE ROMAN on 03/01/21 [facility]-[address] [facility] ([facility]HELLEIAV[facility] CASSIDY YOON ([id number]) 1985 F Date Time Provider Department 02/23/21 7:15 AM NURSE [facility] REJ REIAV During your visit today, we [...] Unable to reach patient by phone, sent BrightWhistle message with instructions. Asked patient to resend [...] Status:Closed by LEROY LEE on 02/28/21 Normal [facility] Estradiol-17Bon 02-23-2021 Estradiol-17B 256 pg/mL Normal [facility] Comment on above: Result Comment: This test [...] 3243 pg/mL Second trimester : 1561 TO 28419 pg/mL Third trimester : 8285 to >99738 pg/mL Reference ranges were not locally established for this patient's age group. The normal values are based on the following source: Estradiol III (package insert v4.0 Syrian). [facility], [place], [place], November 2015. Post-menopausal Estradiol reference range: < 41 pg/mL Post menopausal reference range was established locally. Progesteroneon 02-23-2021 Progesterone 0.4 ng/mL Normal [facility] Comment on above: Result Comment: Mens trual [...] following source: Progresterone III (package insert v1.0 Syrian). [facility], [place], [place], March 2015. Post menopausal Progesterone:<0.5 ng/mL Post menopausal reference range was established locally. Otoniel 02-10-2021 EMMANUELN Telephone (REIBD) CASSIDY YOON ([id number]) 1985 F Date Time Provider Department 02/10/21 [...] Patient scheduled for lining check 02/23/21 in [place]. Kamille Duval RN February 10, 2021 2:27 [...] Encounter Status:Closed by KAMILLE DUVAL on 02/10/21 [facility] Otoniel 01-08-2021 MIKEY Telephone (REIBD) CASSIDY YOON ([id number]) 1985 F Date Time Provider Department 01/08/21 [...] checked. Advised new thaw plan sent via BrightWhistle. Her and her partner will have notarized. Advised we can start her FET process after annual exam. Verbalizes understanding. Rebecca Montgomery RN January 11, 2021 10:22 AM Allergies As of Date: 01/08/2021 (No Known Allergies) Date Reviewed: 01/08/2020 Reviewed by: Briseyda (Rn) KOSTA Smith - Fully Assessed Reason for Visit: Nurse To Address [3636] Primary Visit Diagnosis:Female infertility [N97.9] Order(s):FOLLICULAR [facility] [1634287] Order #: [id number]: 1 ESTRADIOL-17B BLD [SQE2] Order #: [id number] FUTURE PROGESTERONE BLD [SQPROG] Order #: [id number] FUTURE methylPREDNISolone (MEDROL) 16 mg tabletTake 1 [...] Encounter Status:Closed by QUE ROSAS on 01/11/21 [facility] Telephone (REIBD) CASSIDY YOON ([id number]) 1985 F Date Time Provider Department 12/28/20 LUCIO LAFLEUR During your visit today, we recorded the following information about you: Jamilah Owens [facility] 12/28/2020 11:14 AM Signed Patient calling back [...] by ANA ROSA LINDSEY RN on 12/28/20 [facility] Telephone (REIBD) CASSIDY YOON ([id number]) 1985 F Date Time Provider Department 12/16/20 [...] by KATHIE SMITH RN on 12/22/20 Normal [facility] Vital Signs Date Time Vital Sign Value Performing Clinician Facility 11-23-2022 10:45-0400 Body height 161.29 cm Birgit Razo Other [facility] Other 11-23-2022 10:45-0400 Body mass index (BMI) [Ratio] 22.66 kg/m2 Birgit Razo Other [facility] Other 11-23-2022 10:45-0400 Body temperature 97.3 [degF] Birgit Razo Other [facility] Other 11-23-2022 10:45-0400 Body weight 58.97 kg Birgit Razo Other [facility] Other 11-23-2022 10:45-0400 Diastolic blood pressure 68 mm[Hg] Birgit Razo Other [facility] Other 11-23-2022 10:45-0400 SaO2% (BldA) [Mass fraction] 99 % Birgit Razo Other [facility] Other 11-23-2022 10:45-0400 Systolic blood pressure 116 mm[Hg] Birgit Razo Other [facility] Other 03-21-2022 11:15-0400 Body height 161.29 cm Rishabh Hayes Other [facility] Other 03-21-2022 11:15-0400 Body mass index (BMI) [Ratio] 26.88 kg/m2 Rishabh Manzanaresdiff Other [facility] Other 03-21-2022 11:15-0400 Body weight 69.95 kg Rishabh Manzanaresdiff Other [facility] Other 03-21-2022 11:15-0400 Diastolic blood pressure 77 mm[Hg] Rishabh Manzanaresdiff Other [facility] Other 03-21-2022 11:15-0400 Respiratory rate 18 /min Rishabh Manzanaresdiff Other [facility] Other 03-21-2022 11:15-0400 SaO2% (BldA) [Mass fraction] 99 % Rishabhalberto Manzanaresdiff Other [facility] Other 03-21-2022 11:15-0400 Systolic blood pressure 117 mm[Hg] Rishabh Hayes Other [facility] Other Encounters Encounter Date Encounter Type Care Provider Facility Start: 11-23-2022 End: 11-23-2022 ambulatory Birgit Razo Other [facility] Other Start: 11-23-2022 [facility] visit new patient Birgit yancey [facility] Vascular Surgery Start: 03-21-2022 Nutrition therapy Rishabh Hayes [facility] Start: 03-21-2022 End: 03-22-2022 ambulatory Yuri Thomas Naik Wynot [facility] Other Start: 11-14-2021 End: 11-14-2021 ambulatory Jennifer Roberson Facility:[facility] Start: 11-10-2021 End: 11-12-2021 Evaluation and management of inpatient Marie Natjanaawira Facility:[facility] Start: 11-03-2021 End: 11-03-2021 ambulatory Chucho Barroso Facility:[facility] Start: 10-13-2021 End: 10-13-2021 ambulatory Marie Nataprawira Facility:[facility] Procedures Date Procedure Procedure Detail Performing Clinician Start: 11-11-2021 Antibody screen Marie Lissett dockery Comment on above: Order Comment: Needs drawn per Dulce Maria in Blood Bank. MLG Result Comment: PERF ORMED BY: [facility] [address] [place] [id number] PATHOLOGIST DESTINATION SIGN REPAIRER CELESTINO LONG M.D. Immunizations Immunization Date Immunization Notes Care Provider Fa cility 03-09-2017 tetanus toxoid, redu tutu diphtheria toxoid, and acellular pertussis vaccine, adsorbed [facility] Payers Date Payer Category Payer Self-pay [id number] 2021 Unknown [id number]. [id number] 1985 Unknown [id number] [id number] [id number] Unknown [id number] 2.16.8 [id number] Unknown [id number] 2.16.8 [id number] Unknown [id number] 2.16.8 [id number] Unknown [id number] 2.16.8 [id number] Unknown [id number] 2.16.8 [id number] Social History Date Type Detail Facility Unknown if ever smoked [facility] Other Sex Assigned At Sex Assigned At Bir th [facility] Other Start: 1985 Sex Assigned At Female F [facility] Clinical Notes 01-08-2021 to 11-23-2022 Note Date [...] the overall management of her venous disease. [facility] Other 10-03-2022 NotePatient Education Materials Follows: Otitis [...] Follow these instructions at home: ? Take cocz-foo-tzobhpw and prescription medicines only as told by [...] provider. Document Revised: 09/13/2021 Document Reviewed: 09/13/2021 [employer] Patient Education ? 2021 [employer] Infectious Disease Sinusitis, Adult Sinusitis is [...] a virus. Sinusitis c (more content not included)...[id number] Evaluation note* Encounter Date Diagnosis Assessment Notes Treatment Notes Treatment Clinical Notes Mar, Abnormal weight gain (ICD-10 - R63.5) Mar, Overweight (BMI 25.0-29.9) (ICD-10 - E66.3) Mar, Depression, unspecified depression type (ICD-10 - F32.9) Mar, Migraine (ICD-10 - G43.909) [facility] Other 10-11-2021 NoteHNO ID: [id number] Author: Que Rosas MD Service: ? Author Type: Physician Type: Progress Notes Filed: 03/29/2021 8:58 PM Note Text: TRANSVAGINAL OB ULTRASONOGRAM Intrauterine di/di twins consistent with clinical dates but only one with cardiac activity Ovaries - normal No free fluid See imaging tab PLAN - refer to OB Que Rosas, [facility]10-11-2021 NoteHNO ID: [id number] Author: Livia Vogel Service: ? Author Type: [...] with OB OB Provider: Dr. Salazar in [place] Livia Vogel Called patient to discuss plan. Patient will move on to OB. Livia Vogel March 29, 2021 1:10 [facility]10-05-2021 NoteHNO ID: [id number] Author: Roxana Rider RN Service: ? Author Type: Registered Nurse Type: Progress Notes Filed: 03/23/2021 1:31 PM Note Text: Received faxed results today from 03/22/21. Appropriate rise in HCG level. Next step for pt is to have OB ultrasound 03/29/21, order in place. StARTinitiative message sent. Called pt with HCG results. Pt denies any bleeding or pain, no OB complaints. Return 03/29/21 at 0800 for ultrasound, sent to schedulers. Reminded pt to continue taking estrace and progesterone daily as directed until instructed to stop. Pt verbalizes understanding. Roxana Rider RN March 23, 2021 8:06 [facility]10-04-2021 NoteHNO ID: [id number] Author: Roxana Rider RN Service: ? Author Type: Registered Nurse Type: Progress Notes Filed: 03/31/2021 9:50 AM Note Text: Have not received HCG levels yet from outside lab. Called pt to ensure she had test completed. Pt states she had level drawn in [place] and instructed them to fax over results. Will follow. Informed pt if dont received by the end of the day, will follow tomorrow. Pt understands. Roxana Rider RN March 22, 2021 2:30 [facility]09-27-2021 NoteHNO ID: [id number] Author: Roxana Rider RN Service: ? Author [...] Roxana Rider RN March 15, 2021 3:20 [facility]09-13-2021 NoteHNO ID: [id number] Author: Que Rosas MD Service: ? Author Type: Physician Type: Procedures Filed: 03/01/2021 2:16 PM Note Text: WHI CARLITOS TRANSFER PROCEDURE NOTE Date: 03/01/2021 Primary Proceduralist: Que Rosas MD Agriculture Scientist(s): Not applicable Informed Consent: Indications: Cassidy Yoon, is a 36 year old female here today for Embryo Transfer. Lando Protocol: Sign In: Personnel: Special Equipment: Patient/Surrogate [...] Yoon DATE: March 01, 2021 TIME: 2:16 [facility]09-13-2021 NoteHNO ID: [id number] Author: Ramonita Guy Service: ? Author Type: Technologist Type: Progress Notes Filed: 03/01/2021 2:01 PM Note Text: Embryo Transfer procedure performed. Detailed notes can be found in the paper chart in the [facility] ? SCIENTIST Office. Yvette Roman, [facility]09-07-2021 NoteHNO ID: [id number] Author: Livia Vogel Service: ? Author Type: ? Type: Progress Notes Filed: 02/28/2021 9:35 PM Note Text: The patient is here today for follicular ultrasound and blood work. The patient reports no problems or complaints. Ultrasound and blood will be reviewed by the physician, the flow sheet will be updated and instructions will be communicated to the patient. Livia Jaspreet Unable to reach patient by phone, sent BrightWhistle message with instructions. Asked patient to resend thaw plan and will call back after 1pm. Livia Vogel February 23, 2021 12:52 [facility]07-23-2021 NoteHNO ID: [id number] Author: Que Rosas MD Service: ? Author [...] which included preparing to see the patient, mico-kj-rmfy patient care, completing clinical documentation, obtaining and/or reviewing separately obtained history and counseling and educating the patient/family/caregiver. Que Rosas M.D.[facility] noteNo assessment information availableAv[facility] Work Phone: History general Narrative - Reported* Type Description Date Medical History Migraines Medical History PMDD (premenstrual dysphoric dis order) Medical History depression Surgical History colonoscopy Surgical History [place] teeth 2012 Surgical History D+C ectopic Hospitalization History Childbirth 2017 [facility] Other Reason for visit Narrative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North [facility] Other Summary Purpose Family History Relationship Condition Age at Onset Recorded Date/T umberto Not Specified No pertinent family history Unknown Advance Directives No Advanced Directives Records FoundNo Advanced Directives Records FoundNo Advanced Directives Records Found Additional Source Comments INFORMATION SOURCE (unrecogn ized section and content) DATE CREATED AUTHOR 07/16/2021 [facility] DATE CREATED AUTHOR AUTHOR'S ORGANIZ ATION 03/26/2022 [facility] DATE CREATED AUTHOR AUTHOR'S ORGANIZ ATION 09/21/2022 [facility] REASON FOR VISIT (unrecogniz ed [...] BE BASED ON THE PRIMARY CLINICAL RECORDS. [employer] provides no warranty or guarantee of the accuracy or completeness of information in this document.
[2023-08-31] MEDS: LIDOCAINE HCL 1% 100 MG/10 ML MDV INJ (10:36)
[2023-08-31] MEDS: 0.9 % SODIUM CHLORIDE 500 ML, LIDOCAINE HCL 20 ML, SODIUM BICARBONATE 10 MEQ INJ (10:37)
== END 2023-08-31 09:59 | disposition home or self-care (01) ==
LOC: VC 10:03
PROVIDERS: PCP Radiology Diagnostic Radiology; Visit Provider Radiology Diagnostic Radiology
DX: I83.813 Varicose veins of bilateral lower extremities with pain (principal)
CPT/HCPCS: 36478

== ENCOUNTER 2023-09-06 11:34 | Outpatient (OUT) | payer OTHER, SELFPAY ==
--- NOTE | 2023-09-06 11:35 | VEIN_ITS ---
Patient Name: LONG YOON MR#: [id number] : 1985 Exam Date: 09/06/2023 Ordering Doctor: DR GAUDENCIO CARR M.D. RADIOLOGY REPORT PROCEDURE: [facility] EST LMTD VEIN CENTER - OFFICE VISIT FOLLOW UP COMPARISON: None. PROGRESS NOTES: The patient reports no significant problems following intravenous laser ablation of the right great saphenous vein. The patient did not require oral analgesics. The patient did wear compression stockings as directed. The patient has tried exercise. Physical exam demonstrates 5 areas of subtle bruising measuring 1 cm in size likely related to tumescence injection. A thrombosed right great saphenous vein can be partially palpated. No erythema or warmth to suggest cellulitis or thrombophlebitis. No active ulceration Review of the ultrasound performed the same day demonstrates occlusive thrombus extending throughout the treated right great saphenous vein. Heat induced thrombus is 1.6 cm from the saphenofemoral junction. No deep vein thrombus. The patient expressed a desire to proceed with treatment of incompetent left great saphenous vein. VEIN/[facility] EST TD IMPRESSION: 1. Successful ablation of the treated right great saphenous vein 2. Persistent incompetent left great saphenous vein. PLAN: Intravenous laser ablation left great saphenous vein Nurse notes, history and physical were reviewed and confirmed, see attached forms. The nurse was present throughout the physical exam and consultation Dictated by: Gaudencio Carr MD on 09/06/2023 at 12:09 Approved by: Gaudencio Carr MD on 09/06/2023 at 12:11
--- NOTE | 2023-09-06 11:35 | VEIN_ITS ---
Patient Name: LONG YOON MR#: [id number] : 1985 Exam Date: 09/06/2023 Ordering Doctor: DR GAUDENCIO CARR M.D. RADIOLOGY REPORT PROCEDURE: VC EXT VENOUS RT LMTD COMPARISON: None. INDICATIONS: I80.01 Phlebitis of superficial veins of right lower extremity TECHNIQUE: Lower extremity jean scale and Duplex Doppler evaluation of the deep venous system from the inguinal ligament through the calf veins. FINDINGS: REGION: Right lower extremity. THROMBI: Negative for DVT. Heat induced thrombus in right GSV 1.6 cm from SFJ and extends to prox calf. COMPRESSIBILITY: Non-compressible segments corresponding to thrombus FLOW: Areas of no flow corresponding to thrombus CONCLUSION: Post ablation occlusion of the right great saphenous vein with heat induced thrombus 1.6 cm from the saphenofemoral junction. No deep vein thrombus Dictated by: Gaudencio Carr MD on 09/06/2023 at 12:02 Approved by: Gaudencio Carr MD on 09/06/2023 at 12:02
--- OUTSIDE RECORDS SUMMARY | 2023-09-06 11:45 | XMS_ITS | CCD ---
Author Organization [facility] Care Team Providers Care Holistic Specialist Name Role Phone Rishabh Hayes Unavailable Yuri Naik Admitting Unavailable Yuri Naik Attending Unavailable OBERER, ASHISH Sheldon Primary Care Unavailable NatMarie parra Admitting Unavailable Marie Peoples Attending Unavailable Marie Peoples Admitting Unavailable Oberer, Ashish Primary Care Unavailable Colby Callejas Attending Unavailable ViscChucho zambrano Admitting Unavailable Chucho Barroso Attending Unavailable Jennifer Roberson Admitting Unavailable Jennifer Roberson Attending Unavailable Oberer, Ashish Primary Care Unavailable Rishahb Hayes Admitting Unavailable Rishabh Hayes Attending Unavailable [...] Coding Summaryon 03-25-2022 Coding Summary HTMLBase 64 KqpxgdqoJQf3dQi+PGhlYWQ +MB6OYBOdJ26wpETpuX9PW3 qXHP1FNTKLAAXUVS6TMM0ck MU1OLgxW2ZbcjHg BwbqcUWdMA06LKs3WZB6sUf lRMfzqA8cfBVzG1r3PdLjDG 80xB38ZVyuLIJyPoQ6XfZtj jsgbWFy O1qeJwCmbOKwYaq+PHRhYmx lIHdpZHRoPScxMDAlJyBzdH lrBA0gCd5zJEPbMAZbvTmpl HNlOiBj l1jyQGXgCEjnNE7wxWnzP2S uwGE7SEIfs0m9Aa04lTZ+PH NbBHZ6iPepOSgjn092QfIif 5faRJE1 kKMuGCodOWX7Q12pm7N4NTL xHTYpNTN3jXP4zR3ygIsdjx zzH6IfhEOsOmH2MTZ0vANxv M2pwEko tfgcbW6vKuu+Q03ZMM0BPMH TOP3ZGyj4T1ZrButktDI+PC 07GKBfLW53fDTnmLLgm1hah Kv0ArXm DMXfXKV6hSinFRjrp0VuUNI mJ12hgPFce3I4BBVxkCpkbA JnSrQnbDO5qL9dLWzgtpqbg 2hvdzsn Agjix4gjca69cO29L10eAIt lAQZaDAM5GXTbOBDpvHamen 3hoY8sQs1+QGmeb4bxo7eyu Qp4PhNc CZCclfKujAcxTLY5r7NqHb7 7W4FgfUyjc4VdZju1fn84xS Ziw4U4jVK3IMneDQPkxW5wR WxlZnQ6 JLRoYtQjkI26hESrKMtlYo2 pzUrkyTjmAE5oUKZyaoccPY YvwJ3xMGEtkVImrDifQF3kW TBpbjtm u498IaCuVIU6ZOCleDUfN9D pyK5kRoBuXTOpZUXdW3LuiR ZuCJkkS296JSmkKuJ0CRMes mGaC2Pg XEZguWloTsW1s5L3Oe2Wg5J bgcfqLDF2SXjcAXNaAoW8Fu CaMdO6S2OpZwj8YUWjfWhhT N2sO6Iv AHBpmdtvlqneqZE0MKTpJOU qgP49hCZwPEgsSe4lk9S5w7 44WMIcWDCmnZ53Ir0huIzvR TBwdCBU hT7yywijd3nkspoiXoXjIEZ qQZt1EZd3SECtoDirJwOuKR X7XcE2RXE2tDNtyH8efNkjn tmwcE4j Oyc+E86pkV2dPTI3QDI6buo bLCZhvdPeDG90RE40T0WsJd wvdGFibGU+PGRpdiBzdHlsZ N7wGoRi i5yxu7CuAXquW0NgGBWmHCw vYhl5FCWeZKY8vFG0cI0gTZ YdOZyfm3A5jKT8N3NkaqBhg g7do8ey RIHfCSioF46qiAWgo7T8PXL dxVV0CSHefHadPmDfaR73Jh c+GNAohVpah7DwZbtis2psk 4ihyQk7 JhBvSXFjgiQurSipKZK7o9W lXf35C95oCJfmAGFxIZWzIG IfROKrtLputu4jgS5yMp9+P GNvbCB3 iAY4pT3rXVCoFbG3ZPrfR03 2PyZtfOTvLrsqh8lrh2rtaN w0PrQaUNFqzsKdfEmlAZW8d 8RgEd99 S20bRKsnTGZyGXEmOTOgSGA sfHsdsv0tfK7iDz8+PC9jb2 jljk98tX10iSO+WLZkZAJ6h WxlPSdw ZGMkaT0mWIqzLdN4BKGoKsE btD68oKRhBRejMg7utYvvmJ cnPW3dQDTlzjcrw011VnGmg 2xkIDEw mEAdPCksKDS1J88lr5N9LIT bJIBrWAL4uSN2mM8klJhjqt ogbGVmdDsgdmVydGljYWwtY WqjN964 IHRvcDsnPlBhdGllbnQgTmF hHRx4E1ToCnc8HBIecFslOP 9wiVIvBZzhFp8gbXxtrXksC D0kPZZc ceqip194BbRfw9ruOTWusBS dISfyPRP6R70sr7K5RMWqNB TvTLH4aCW2oG5bhKuhjqtxh GVmdDsg amVbqVvoBBhqDUucS349LGA ouQaxTdPbgoWlGQPzvKW0KB 27PL43hPMds5M2hMQ6I5EsZ GRpbmct ukpedUF1KXEmJMDlyM44Kw2 keNgcRp0sJRGoRQD4TUBryQ UhJ8MpmX7wXsJuNZVxZMCjI 3RleHQt RWpvY702XQcjBwW8MTQzvpY rI1XnOELxdPnlIlD9u8C1If 3YQ0Y9PH72ZV29dZUam8W0z BZ5I6Nn YGZujfixmmbtnFD8FOUzJLU pfX54Hw0afKvkAx6aKOZlHT X1OQZwzBDcZ6VebL8cHgSsA DAwMDAw A6TwpHXiGKgvY461WUtgOhA 6HLPrioYaU8RxPPTzqJlvBn Y9e4J8Ra0KXGf4ST59SX25i RCgu0J8 uMD8F1WeIRFroddqnyixzTG 0QPJvOBFgvD54Ix7beJxcWr 1dVEMtOIE7IQAphGZpF7Xwe D3mDhXg QMBnVISyW6CrcEIlAPjpQ25 5FXuwMbE9ZKSdyqXhG3ZgMR HfiNleUcM8l2B3Od4ZTPImQ U59WIE5 xKE5ZX54AA52L8NzXedufYV ibGU+PHRhYmxlIHdpZHRoPS ewPPZrCxFgaRqcUF0bIa0kJ GVyLWNv oYtcvXZrUeNup8tvYDVuZMs sNJ9ahExhK2UtzJO6WTUum4 o3Ib86M52wE2FkrFP+PGNvb VF9aZA3 aJ4qNyBbAdZ4BAuuM305IaU vrWNjSicny3ibz6dasKg6Py Y7SKYxfsKcfKcuOYQ1z6LyU q55E33y IHdpZHRoPSIxNSUiIHZhbGl vus0wtN6qVl8+HYBowUJ4fZ T7iV5gIjZwPhK4KUteT439K nRvcCIv Mhdis1xnk4vwcNf9JrSwJXA ygzKkgUfuZLI7o5QcMe58A5 DqwYyem6FiBbg2cf56qKWxh 1Y6aOO0 R2DaHSLqcwmxoBEtqCtiCH0 kVCEfoyxcXECloS9bFSThX9 q6SwJzOnD2JGvxX6HckhD6Q DEwcHQg AErgHJQ3R73vq9H6TDWnIPQ yJZY2jFW8vQ9bxGovkoqfvT VmdDsgdmVydGljYWwtYWxpZ 246IHRv oKjiEXGmdZ2pERFvyRAatVa lHA7cGVVjyspmBmeARISJAT 4sIEVMSVpBQkVUSCBKRUFOP J20CP84 aTWck1M6dYG0N4LnFOPkulx fxvkwsZU8VUIzTUJahY79bG AiAPryAk6rp6U3e551BBMsQ DUwaW47 Kx9kcTcwKWTqrMUJiX2tuax fl1cpuujbErShLCQxQMx5WQ t6ELTmwTznQjRfZQV1JdB8F JZ6cXOp oS7orVosaivloJ8hZnu+MDk wRNXfCDt0WLinlQD+PHRkIH C6eBmvMOeiSVIauT6gIZEhL 9b0UnTr XmM4TMytD7ObOQYufeicFl9 0aE7nAtPkYkR2HMgaO5Usga R6JXIpdPQxZLlnLUN5X42ue 1P0SJNh CRNyUZC9qQG8eL8hlXsvvgt gbGVmdDsgdmVydGljYWwtYW olC914DTJgcWeaPbT3NWysD XJzPC90 TL82yACou5N6cUX6R2UhPAE fvvexocolwKK3LYLhEHUimI 12pTYkYEhsIl1tm6N1u013W DAuMDUw tS13Ra3heJdaVTDcmGOIyJ8 kqykaf7lwstdzEpZyCZZaOL t9VHx8GSFqiHecLvGyRTQ1G mI2KBQ7 fDQztM4knXswztzpcL1hUex +GqCKYAfRVV33FK07jNFnp6 V3oGN5P9HzJJDubrxtkygur UJ3WCUp YQIjnD00xDFyNEmbDi8yi4W 4h158TZVsNGAxqV76Hl6ezT zqAQMiiDOMzJ6vxincn1ecp jogIzAw PMTySAx5ONx0NKEucWwvBdR sCMN4WiH3KPB4qPDdyK3sqS vklsuoyI8hMmq+M4P6J8PtI jwvdHI+ MZ13QALmLJ74fJFcsQWwr0s mzDy6QnFfSFUrOYZ6jOloRD cry8KvLTPwX10ouSLym9W5B GNvbGxh ySPvKiYmlXT2eL0eKTqbmsh gy1cupojaCbziq1jpil06fT 71A25kMRhxSISwHNGoONIiO HZhbGln bu2pfZ8tSt3+UMDorFN4qZE 1wA6sQbNpIcB2NQixQ198Wp TucPAsDpptj2ffd9ysxMb0F jIwJSIg wwNnbKfiUEA0f5AfVf41B12 sIHdpZHRoPSIyMCUiIHZhbG vzll3jtD0jPm7+OH1fp9rga p73fU60 dHI+AEPsVLB7cHitBQsgJTB qhE3hEKirSmG1HPUrSkAgdK 33aQEeROkmQn4ceXbqcPuaW Z4iOIQk tdazl586ScIvu0wbQEOenZB nWMcyLHC0R71xz5C0WVAxCE RjHXF5zZJ0nR0yrKjoighjd GVmdDsg afBmrQomBNvvHJoaM328GMS dzRvfUzHlzEHvZ5jcaqILAR 1lOjwvdGQ+BHKpVVG1kMafK SdwYWRk uB7fTJFqG7c0SkUdPkT7PBh wS3BbzgN1EUGxzXFwBLFkwQ KWoY3yxrala7bzurwrBqTaM DAwMDt0 RRm2WPMhoKuxHpSjTQR1KlQ 6YNK1oFMyrM9tvXcfwcwiaZ 9wOyc+RklOOjwvdGQ+PHRkI KL5uBxm MOztOIUirT3zYXArE9o3KeV wNkZ1HFkwH5InxaB9XUWroF JzKQIrqLIGkM7qgslcu0uqy jogIzAw CSKiXBh9BCx1MUZyoJpuOrF zDOG1HiT4VIY8dWUasS1htD uclgsxxA6iLfn+TVJOOjwvd GQ+PHRk HUI0tVjxYYvqMBQqsO1lQTH cH2q1WtQfNuO0VZenH7Nfwn K3HIPayPXnZEKcuBCMzO4sg tewx6uq dggzLuJpQFMlSNc1BZw4FJI lzAqvSxStGEU4OaC0EKT8mL ThvF7ugSatidcdlU2gBjm+U IW4XHT5 LR87PX05W6DdRehowICoyLB +PHRhYmxlIHdpZHRoPScxMD CcXhZmlPqcBK7kJt7yUELhH WNvbGxh cHN (more content not included)... Normal [facility] ED Clinical Summaryon 2021 ED Clinical Summary [facility] ? Urgent Care [address] [place], [place] [id number] Clinical Summary PERSON INFORMATION Name: CASSIDY YOON Age: 37 Years Sex: FEMALE : 1985 MRN: Acct#: Visit Reason: Cough; UC - Sore Throat; CONGESTION, SORE THROAT, BODY ACHES Arrival: 03/21/2022 11:57:18 Discharge: 03/21/2022 13:07:00 LOS: 000 01:10 Check In: 03/21/2022 11:57:18 Checkout: 03/21/2022 13:07:00 Address: [address] [place] [address] [facility] [address] PCP: ASHISH HAIDER PROVIDER INFORMATION Provider Role Assigned Unassigned Yuri Geiger ED PA 03/21/2022 12:00:10 Fior Shields STATISTICS TEACHER Nurse 03/21/2022 12:08:48 VITALS INFORMATION Vital Sign [...] Adult Follow-Up: With: Address: When: ASHISH HAIDER [address] [place] [address] Business (1) Within 2 to [...] r verbalizes understanding of instructions given Comment: [facility] ED Note-Nursingon 03-21-2022 ED Note-Nursing pa in room for exam [facility] ED Patient Summaryon 022 ED Patient Summary [facility] ? Urgent Care [address] [place], [place] [id number] PATIENT DISCHARGE INSTRUCTIONS Patient Information Name: CASSIDY YOON Age: 37 Years Date of : 1985 Reason For Visit: Cough; UC - Sore Throat; CONGESTION, SORE THROAT, BODY ACHES Arrival Time: 03/21/2022 11:57:18 Primary Care Physician: ASHISH HAIDER Attending Physician: Yuri Geiger Comment: Patient Education With: Address: When: ASHISH HAIDER [address] [place] [address] Business (1) Within 2 to [...] home: Medicines ? Take, use, or apply domt-nvp-mfxvtwn and prescription medicines only as told by your health care provider. These may include nasal sprays. ? If you were prescribed an antibiotic medicine, take it as told by your health care provider. Do not stop taking the antibiotic even if you start to feel better. Hydrate and humidif (more content not included)... Normal [facility] Urgent Care Note- Provideron 03-21-2022 Urgent Care [...] congestion for 2 weeks. states went to [facility] 2 weeks ago and was put [...] and Plan Diagnosis Acute left otitis media (ION33-LX H66.92, Discharge, Medical) (more content not included)... Normal [facility] Care [place] 022 Urgent Care Record [facility] ? Urgent Care [address] [place] [id number] PATIENT DISCHARGE INSTRUCTIONS Patient Information Name: CASSIDY YOON Age: 37 Years Date of : 1985 Reason For Visit: Cough; UC - Sore Throat; CONGESTION, SORE THROAT, BODY ACHES Arrival Time: 03/21/2022 11:57:18 Primary Care Physician: ASHISH HAIDER Attending Physician: Yuri Geiger Comment: Visit Diagnosis: Diagnoses This Visit Acute left otitis media (H66.92) Acute maxillary sinusitis (J01.00) Cough ([id number]) Hypertrophy of nasal turbinates (J34.3) UC - Sore Throat ([id number]) If you received any narcotics, sedation, or [...] legal documents With: Address: When: ASHISH HAIDER [address] [place] [place] [id number] Business (1) Within 2 to 4 days [...] and treatment you received today in the [facility] were for an urgent problem and are not intended as complete care. It is important for you to follow up with a doctor, nurse practitioner, or physician?s editorial assistant for ongoing care. If your symptoms [...] so we can reach you if necessary. [facility] has provided you with a complete list of medications post discharge. 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 Any specific questions regarding your chronic medications and dosages should be discussed with your primary care physician(s) and/or pharmacist. New Medications [facility] [address] [place], [place] [id number], [phone] azithromycin (Azithromycin 5 Day Dose Pack 250 [...] Behind you (more content not included)... Normal [facility] Complete Blood Count Auto Di ffon 11-12-2021 Basophils (Bld) [#/Vol] 0.0 10*3/uL Normal 0.0-0.2 [facility] Comment on above: Order Comment: Comme nt Draw at 630 am Result Comment: PERF ORMED BY: [place] [address] PATHOLOGIST [employer]ILE [employer]OTH[employer] AND FOOTWE[employer] MECHANIC CELESTINO LONG M.D. Performed By: #### C BC #### [address] Basophils/100 WBC (Bld) 0.4 % Normal . [facility] Comment on above: Order Comment: Comme nt Draw at 630 am Performed By: #### C BC #### [address] Eosinophils (Bld) [#/Vol] 0.1 10*3/uL Normal 0.0-0.45 [facility] Comment on above: Order Comment: Comme nt Draw at 630 am Performed By: #### C BC #### [address] Eosinophils/100 WBC (Bld) 0.9 % Normal . [facility] Comment on above: Order Comment: Comme nt Draw at 630 am Performed By: #### C BC #### [address] Erythrocyte distribution width (RBC) [Ratio] 13.5 % Normal 11.9-15.3 [facility] Comment on above: Order Comment: Comme nt Draw at 630 am Performed By: #### C BC #### [address] Hematocrit (Bld) [Volume fraction] 26.9 % Low 34.0-46.4 [facility] Comment on above: Order Comment: Comme nt Draw at 630 am Performed By: #### C BC #### [address] Hemoglobin (Bld) [Mass/Vol] 8.9 g/dL Low 11.8-15.4 [facility] Comment on above: Order Comment: Comme nt Draw at 630 am Performed By: #### C BC #### [address] Lymphocytes (Bld) [#/Vol] 2.9 10*3/uL Normal 1.00-4.8 [facility] Comment on above: Order Comment: Comme nt Draw at 630 am Performed By: #### C BC #### [address] Lymphocytes/100 WBC (Bld) 30.4 % Normal . [facility] Comment on above: Order Comment: Comme nt Draw at 630 am Performed By: #### C BC #### [address] [address] [place] MCH (RBC) [Entitic mass] 29.3 pg Normal 24.7-34.3 [facility] Comment on above: Order Comment: Comme nt Draw at 630 am Performed By: #### C BC #### [address] MCV (RBC) [Entitic vol] 88.5 fL Normal 80-100 [facility] Comment on above: Order Comment: Comme nt Draw at 630 am Performed By: #### C BC #### [address] Mean Corpuscular HGB Conc 33.2 g/dL Normal 32.0-35.0 [facility] Comment on above: Order Comment: Comme nt Draw at 630 am Performed By: #### C BC #### [address] Monocytes (Bld) [#/Vol] 0.6 10*3/uL Normal 0.0-0.8 [facility] Comment on above: Order Comment: Comme nt Draw at 630 am Performed By: #### C BC #### [address] Monocytes/100 WBC (Bld) 5.8 % Normal . [facility] Comment on above: Order Comment: Comme nt Draw at 630 am Performed By: #### C BC #### [address] Neutrophils (Bld) [#/Vol] 6.0 10*3/uL Normal 1.8-7.7 [facility] Comment on above: Order Comment: Comme nt Draw at 630 am Performed By: #### C BC #### [address] Neutrophils/100 WBC (Bld) 62.5 % Normal . [facility] Comment on above: Order Comment: Comme nt Draw at 630 am Performed By: #### C BC #### [place] [address] [place] Nucleated RBC/100 WBC (Bld) [Ratio] 0.0 % Normal 0-0.5 [facility] Comment on above: Order Comment: Comme nt Draw at 630 am Performed By: #### C BC #### [address] Platelet mean volume (Bld) [Entitic vol] 9.8 fL Normal 6.3-10.7 [facility] Comment on above: Order Comment: Comme nt Draw at 630 am Performed By: #### C BC #### [address] Platelets (Bld) [#/Vol] 182 10*3/uL Normal 150-450 [facility] Comment on above: Order Comment: Comme nt Draw at 630 am Performed By: #### C BC #### [address] RBC (Bld) [#/Vol] 3.04 10*6/uL Low 3.60-5.00 [facility] Comment on above: Order Comment: Comme nt Draw at 630 am Performed By: #### C BC #### [address] WBC (Bld) [#/Vol] 9.6 10*3/uL Normal 4.5-11.[address] [facility] Comment on above: Order Comment: Comme nt Draw at 630 am Performed By: #### C BC #### [address] Screenon 11-11-2021 Screen Negative Normal [facility] Comment on above: Order Comment: Needs drawn per Dulce Maria in Blood Bank. MLG Result Comment: 1 do se(300mcg)of RhoGAM indicated Rhogam Workupon 11-11-2021 Rhogam Candidate Yes Normal [facility] Comment on above: Order Comment: Needs drawn per Dulce Maria in Blood Bank. MLG RHOGAM DOSE POST Normal [facility] Comment on above: Order Comment: Needs drawn per Dulce Maria in Blood Bank. MLG Result Comment: See Fetalscreen result PERFORMED BY: [address] [id number] PATHOLOGIST TEXTILE CLOTHING AND FOOTWEAR MECHANIC CELESTINO LONG M.D. ABO and Rh group Nom (Bld) Blood group O Rh(D) negative Normal [facility] Comment on above: Order Comment: Needs drawn per Dulce Maria in Blood Bank. MLG Result Comment: PERF ORMED BY: [facility] [address] [place] [address] PATHOLOGIST TEXTILE CLOTHING AND FOOTWEAR MECHANIC CELESTINO LONG M.D. COVID-19 Antigenon 2 COVID-19 [...] developed and its performance characteristic determined by [employer] and validated at [facility]. This test has not been FDA [...] for SARS Antigen by SHILA PERFORMED BY: [facility] [address] [place] [address] PATHOLOGIST TEXTILE CLOTHING AND FOOTWEAR MECHANIC CELESTINO LONG M.D. Normal [facility] Comment on above: Performed By: #### C OVID-19 ROWAN, SOFIANEG #### [address] Complete Blood Count Auto Di ffon 11-10-2021 Basophils (Bld) [#/Vol] 0.0 10*3/uL Normal 0.0-0.2 [facility] Comment on above: Result Comment: PERF ORMED BY: [place] [address] PATHOLOGIST TEXTILE CLOTHING AND FOOTWE[employer] MECHANIC CELESTINO LONG M.D. Performed By: #### C BC #### [address] #### RPR W RFX #### [facility] , Basophils/100 WBC (Bld) 0.4 % Normal . [facility] Comment on above: Performed By: #### C BC #### [address] #### RPR W RFX #### [facility] , Eosinophils (Bld) [#/Vol] 0.1 10*3/uL Normal 0.0-0.45 [facility] Comment on above: Performed By: #### C BC #### [facility] [address] [place] [address] #### RPR W RFX #### [facility] , Eosinophils/100 WBC (Bld) 1.0 % Normal . [facility] Comment on above: Performed By: #### C BC #### [facility] [address] [place] [address] [place] #### RPR W RFX #### [facility] , Erythrocyte distribution width (RBC) [Ratio] 13.8 % Normal 11.9-15.3 [facility] Comment on above: Performed By: #### C BC #### [facility] [address] [place] [address] #### RPR W RFX #### [facility] , Hematocrit (Bld) [Volume fraction] 32.7 % Low 34.0-46.4 [facility] Comment on above: Performed By: #### C BC #### [facility] [address] [place] [address] #### RPR W RFX #### [facility] , Hemoglobin (Bld) [Mass/Vol] 10.9 g/dL Low 11.8-15.4 [facility] Comment on above: Performed By: #### C BC #### [address] #### RPR W RFX #### [facility] , Lymphocytes (Bld) [#/Vol] 2.6 10*3/uL Normal 1.00-4.8 [facility] Comment on above: Performed By: #### C BC #### [address] #### RPR W RFX #### [facility] , Lymphocytes/100 WBC (Bld) 31.3 % Normal . [facility] Comment on above: Performed By: #### C BC #### [facility] [address] [place] [address] #### RPR W RFX #### [facility] , MCH (RBC) [Entitic mass] 29.2 pg Normal 24.7-34.3 [facility] Comment on above: Performed By: #### C BC #### [facility] [address] [place] [address] [place] #### RPR W RFX #### [facility] , MCV (RBC) [Entitic vol] 87.3 fL Normal 80-100 [facility] Comment on above: Performed By: #### C BC #### [facility] [address] [place] [address] #### RPR W RFX #### [facility] , Mean Corpuscular HGB Conc 33.5 g/dL Normal 32.0-35.0 [facility] Comment on above: Performed By: #### C BC #### [facility] [address] [place] [address] #### RPR W RFX #### [facility] , Monocytes (Bld) [#/Vol] 0.6 10*3/uL Normal 0.0-0.8 [facility] Comment on above: Performed By: #### C BC #### [facility] [address] [place] [address] #### RPR W RFX #### [facility] , Monocytes/100 WBC (Bld) 7.1 % Normal . [facility] Comment on above: Performed By: #### C BC #### [facility] [address] [place] [address] #### RPR W RFX #### [facility] , Neutrophils (Bld) [#/Vol] 5.0 10*3/uL Normal 1.8-7.7 [facility] Comment on above: Performed By: #### C BC #### [facility] [address] [place] [address] [place] #### RPR W RFX #### [facility] , Neutrophils/100 WBC (Bld) 60.2 % Normal . [facility] Comment on above: Performed By: #### C BC #### [facility] [address] [place] [address] [place] #### RPR W RFX #### [facility] , Nucleated RBC/100 WBC (Bld) [Ratio] 0.1 % Normal 0-0.5 [facility] Comment on above: Performed By: #### C BC #### [address] [address] [place] #### RPR W RFX #### [facility] , Platelet mean volume (Bld) [Entitic vol] 9.7 fL Normal 6.3-10.7 [facility] Comment on above: Performed By: #### C BC #### [facility] [address] [place] [address] #### RPR W RFX #### [facility] , Platelets (Bld) [#/Vol] 222 10*3/uL Normal 150-450 [facility] Comment on above: Performed By: #### C BC #### [facility] [address] [place] [address] #### RPR W RFX #### [facility] , RBC (Bld) [#/Vol] 3.75 10*6/uL Normal 3.60-5.00 [facility] Comment on above: Performed By: #### C BC #### [facility] [address] [place] [address] #### RPR W RFX #### [facility] , WBC (Bld) [#/Vol] 8.4 10*3/uL Normal 4.5-11.[address] [facility] Comment on above: Performed By: #### C BC #### [facility] [address] [place] [address] [place] #### RPR W RFX #### [facility] , OB Urine Drug Screen (NO THC )on 11-10-2021 Amphetamine Screen,Urine Negative Normal Negative [facility] Comment on above: Performed By: #### U A OBUDS #### [address] Barbiturate Screen,Urine Negative Normal Negative [facility] Comment on above: Performed By: #### U A, OBUDS #### [address] Benzodiazepines Screen,Urine Negative Normal Negative [facility] Comment on above: Performed By: #### U A, OBUDS #### [facility] [address] [place] [address] Cocaine Screen,Urine Negative Normal Negative [facility] Comment on above: Performed By: #### U A, OBUDS #### [address] Opiate Screen,Urine Negative Normal Negative [facility] Comment on above: Performed By: #### U A, OBUDS #### [address] Phencyclidine Screen, Urine Negative Normal Negative [facility] Comment on above: Result Comment: Thes e are unconfirmed results and should not be used for legal purposes. Drug Cut-Off Concentration: AMPH 1000 ng/mL RADHA 200 ng/mL FERMIN 200 ng/mL COCM 300 ng/mL OP 300 ng/mL PCP 25 ng/mL PERFORMED BY: [place] [address] PATHOLOGIST [employer] CELESTINO LONG M.D. Performed By: #### U A, OBUDS #### [address] RPR w/rfx to Quant TP Abson 11-10-2021 RPR, Rfx Quant RPR Non-Reactive Normal Non Reactive [facility] Comment on above: Result Comment: Perf ormed at: CB - [facility] [address] [id number] [employer] Supervisor: Jose Baeza PhD, Phone: [phone] PERFORMED BY: [place] [address] PATHOLOGIST [employer] MECHANIC CELESTINO LONG M.D. Performed By: #### C BC #### [address] #### RPR W RFX #### [facility] , Rowan Ag Negativeon 11-11-19 Rowan Ag Negative Negative Normal Negative [facility] Comment on above: Result Comment: This is a duplicate Rowan SARS Antigen (SHILA) result to be used for statistical tracking purpose only. PERFORMED BY: [place] [address] PATHOLOGIST [employer] MECHANIC CELESTINO LONG M.D. Performed By: #### C OVID-19 ROWAN, SOFIANEG #### [facility] [address] [place] [address] Urinalysison 11-10-2021 Appearance (U) Clear Normal Clear [facility] Comment on above: Order Comment: Name Collection Type:: Clean-Voided Midstream Performed By: #### U A, OBUDS #### [address] Bilirubin,Urine Negative Normal Negative [facility] Comment on above: Order Comment: Name Collection Type:: Clean-Voided Midstream Performed By: #### U A, OBUDS #### [address] Color (U) Yellow Normal Yellow [facility] Comment on above: Order Comment: Name Collection Type:: Clean-Voided Midstream Performed By: #### U A, OBUDS #### [address] Glucose Ql (U) Normal Normal Normal [facility] Comment on above: Order Comment: Name Collection Type:: Clean-Voided Midstream Performed By: #### U A, OBUDS #### [place] [address] [place] Ketones Ql (U) Negative Normal Negative [facility] Comment on above: Order Comment: Name Collection Type:: Clean-Voided Midstream Performed By: #### U A, OBUDS #### [address] Leukocyte esterase Test strip Ql (U) Negative Normal Negative [facility] Comment on above: Order Comment: Name Collection Type:: Clean-Voided Midstream Performed By: #### U A, OBUDS #### [place] [id number] [place] Nitrite,Urine Negative Normal Negative [facility] Comment on above: Order Comment: Name Collection Type:: Clean-Voided Midstream Performed By: #### U A, OBUDS #### [address] Occult Blood,Urine Negative Normal Negative [facility] Comment on above: Order Comment: Name Collection Type:: Clean-Voided Midstream Result Comment: PERF ORMED BY: [place] [address] PATHOLOGIST [employer] MECHANIC CELESTINO LONG M.D. Performed By: #### U A, OBUDS #### [address] pH (U) 6.5 [pH] Normal 5.0-9.0 [facility] Comment on above: Order Comment: Name Collection Type:: Clean-Voided Midstream Performed By: #### U A, OBUDS #### [address] Protein,Urine Negative Normal Negative [facility] Comment on above: Order Comment: Name Collection Type:: Clean-Voided Midstream Performed By: #### U A, OBUDS #### [address] Specificy [place],Urine 1.005 Normal 1.001-1.030 [facility] Comment on above: Order Comment: Name Collection Type:: Clean-Voided Midstream Performed By: #### U A, OBUDS #### [place] [address] [place] Urobilinogen,Urine Normal Normal Normal [facility] Comment on above: Order Comment: Name Collection Type:: Clean-Voided Midstream Performed By: #### U A, OBUDS #### [address] [address] OB Urine Drug Screen (NO THC )on 11-03-2021 Amphetamine Screen,Urine Negative Normal Negative [facility] Comment on above: Performed By: #### O BUDS, UA #### [address] Barbiturate Screen,Urine Negative Normal Negative [facility] Comment on above: Performed By: #### O BUDS, UA #### [address] Benzodiazepines Screen,Urine Negative Normal Negative [facility] Comment on above: Performed By: #### O BUDS, UA #### [address] Cocaine Screen,Urine Negative Normal Negative [facility] Comment on above: Performed By: #### O BUDS, UA #### [address] Opiate Screen,Urine Negative Normal Negative [facility] Comment on above: Performed By: #### O BUDS, UA #### [address] Phencyclidine Screen, Urine Negative Normal Negative [facility] Comment on above: Result Comment: Thes e are unconfirmed results and should not be used for legal purposes. Drug Cut-Off Concentration: AMPH 1000 ng/mL RADHA 200 ng/mL FERMIN 200 ng/mL COCM 300 ng/mL OP 300 ng/mL PCP 25 ng/mL PERFORMED BY: [place] [address] PATHOLOGIST [employer]ILE [employer]OT[employer] MECHANIC CELESTINO LONG M.D. Performed By: #### O BUDS, UA #### [address] Urinalysison 11-03-2021 Appearance (U) Clear Normal Clear [facility] Comment on above: Order Comment: Name Collection Type:: Clean-Voided Midstream Performed By: #### O BUDS, UA #### [address] Bilirubin,Urine Negative Normal Negative [facility] Comment on above: Order Comment: Name Collection Type:: Clean-Voided Midstream Performed By: #### O BUDS, UA #### [address] Color (U) Yellow Normal Yellow [facility] Comment on above: Order Comment: Name Collection Type:: Clean-Voided Midstream Performed By: #### O BUDS, UA #### [place] [address] [place] Glucose Ql (U) Normal Normal Normal [facility] Comment on above: Order Comment: Name Collection Type:: Clean-Voided Midstream Performed By: #### O BUDS, UA #### [place] [address] [place] Ketones Ql (U) Negative Normal Negative [facility] Comment on above: Order Comment: Name Collection Type:: Clean-Voided Midstream Performed By: #### O BUDS, UA #### [address] Leukocyte esterase Test strip Ql (U) Negative Normal Negative [facility] Comment on above: Order Comment: Name Collection Type:: Clean-Voided Midstream Performed By: #### O BUDS, UA #### [place] [address] [place] Nitrite,Urine Negative Normal Negative [facility] Comment on above: Order Comment: Name Collection Type:: Clean-Voided Midstream Performed By: #### O BUDS, UA #### [place] [address] [place] Occult Blood,Urine Negative Normal Negative [facility] Comment on above: Order Comment: Name Collection Type:: Clean-Voided Midstream Result Comment: PERF ORMED BY: [place] [address] PATHOLOGIST [employer] MECHANIC CELESTINO LONG M.D. Performed By: #### O BUDS, UA #### [facility] [address] [place] [address] [place] pH (U) 6.5 [pH] Normal 5.0-9.0 [facility] Comment on above: Order Comment: Name Collection Type:: Clean-Voided Midstream Performed By: #### O BUDS, UA #### [place] [address] [place] Protein,Urine Negative Normal Negative [facility] Comment on above: Order Comment: Name Collection Type:: Clean-Voided Midstream Performed By: #### O BUDS, UA #### [address] Specificy Butler,Urine 1.005 Normal 1.001-1.030 [facility] Comment on above: Order Comment: Name Collection Type:: Clean-Voided Midstream Performed By: #### O BUDS, UA #### [address] Urobilinogen,Urine Normal Normal Normal [facility] Comment on above: Order Comment: Name Collection Type:: Clean-Voided Midstream Performed By: #### O BUDS, UA #### [address] Strep B Cultureon 10-13-2021 Strep B Culture Reason for Exam 35 weeks gestation of ; screening for stre Vaginal/Rectal No Group B Beta Streptococcus Isolated 3 Days PERFORMED BY: [place] [address] PATHOLOGIST [employer] MECHANIC CELESTINO LONG M.D. [facility] Comment on above: Performed By: #### C USTB #### [address] CNNURSEon 03-29-2021 CNNURSE Nurse Visit (REIAV) CASSIDY YOON ([id number]) 1985 F Date Time Provider Department 03/29/21 8:00 AM NURSE CARLITOS [facility] REJ REIAV During your visit today, we recorded the following information about you: Last Period 02/09/21 [facility] 03/29/2021 8:58 PM Signed Cassidy Yoon, a [...] with OB OB Provider: Dr. Salazar in [place] Livia Vogel Called patient to discuss plan. [...] Encounter Status:Closed by QUE ROSAS on 03/29/21 [facility] 03-22-2021 [facility] Telephone (REIBD) CASSIDY YOON ([id number]) 1985 F Date Time Provider Department 03/22/21 QUE ROSAS During your visit today, we recorded the following information about you: Reddy Zelaya Pss 03/22/2021 4:17 PM Signed HCG results in. Please follow up, thank you! Roxana Riedr RN 03/23/2021 8:08 AM Signed See Televisit [...] Encounter Status:Closed by [facility]ANA RIDER [facility] Telephone (REIBD) CASSIDY YOON ([id number]) 1985 F Date Time Provider Department 03/11/21 QUE ROSAS During your visit today, we recorded the following information about you: Marivel Phipps 03/11/2021 1:48 PM Signed Pt. Needs progesterone refill sent to [facility] Please. Thank You! Alexandrea Guzman 03/11/2021 2:21 PM Signed Progesterone reordered to [facility]. Alexandrea Guzman March 11, 2021 2:21 PM [...] Encounter Status:Closed by QUE ROSAS on 03/13/21 [facility] CNCOon 03-01-2021 CNCO Letter Text Normal [facility] CNOVon 03-01-2021 CNOV Office Visit (IVFBE) CASSIDY YOON ([id number]) 1985 F Date Time Provider Department 03/01/21 2:00 PM QUE ROSAS IVFBE During your visit today, we recorded the following information about you: Nuvia Judd RN 03/01/2021 1:48 PM Signed POST EMBRYO TRANSFER INSTRUCTIONS ? You will need to have your blood drawn for Quantitative HCG on 03/15/21 at [place]. You can expect to be called the afternoon of your blood draw with your test results. If for any reason that date or location is changed, please call [phone] to inform us. ? Continue your current [...] If you have any questions, please call [phone]. Que Rosas MD 03/01/2021 2:16 PM Signed WHI CARLITOS TRANSFER PROCEDURE NOTE Date: 03/01/2021 Primary Proceduralist: Que Rosas MD Forging Machine Operator(s): Not applicable Informed Consent: Indications: Cassidy Yoon, is a 36 year old female here today for Embryo Transfer. [place] Protocol: Sign In: Personnel: Special Equipment: Patient/Surrogate [...] 50 mg/m (more content not included)... Normal [facility] CNOV Office Visit (ANDBRENDA ) CASSIDY YOON ([id number]) 1985 F Date Time Provider Department 03/01/21 2:00 PM [facility] During your visit today, we recorded the following information about you: Ramonita Guy 03/01/2021 2:01 PM Signed Embryo Transfer procedure performed. Detailed notes can be found in the paper chart in the [facility] ? [employer] Office. Ramonita Guy Referring Provider: SELF [[id number]] [...] Encounter Status:Closed by YVETTE ROMAN on 03/01/21 [facility] ([facility] CASSIDY YOON ([id number]) 1985 F Date Time Provider Department 02/23/21 7:15 AM NURSE CARLITOS [facility] REJ REIAV During your visit today, we [...] Unable to reach patient by phone, sent Do It In Person message with instructions. Asked patient to resend [...] Status:Closed by LEROY LEE on 02/28/21 Normal [facility] Estradiol-17Bon 02-23-2021 Estradiol-17B 256 pg/mL Normal [facility] Comment on above: Result Comment: [...] 3243 pg/mL Second trimester : 1561 TO 32196 pg/mL Third trimester : 8285 to >85936 pg/mL Reference ranges were not locally established for this patient's age group. The normal values are based on the following source: Estradiol III (package insert v4.0 Dutch). [facility], [place], [place], November 2015. Post-menopausal Estradiol reference range: < 41 pg/mL Post menopausal reference range was established locally. Progesteroneon 02-23-2021 Progesterone 0.4 ng/mL Normal [facility] Comment on above: Result Comment: Mens [...] following source: Progresterone III (package insert v1.0 Dutch). [facility], [place], [place], March 2015. Post menopausal Progesterone:<0.5 ng/mL Post menopausal reference range was established locally. Otoniel 02-10-2021 [facility] Telephone (REIBD) CASSIDY YOON ([id number]) 1985 F Date Time Provider Department 02/10/21 [...] Patient scheduled for lining check 02/23/21 in [place]. Kamille Duval RN February 10, 2021 2:27 [...] Encounter Status:Closed by KAMILLE DUVAL on 02/10/21 [facility] Otoniel 01-08-2021 [facility] Telephone (REIBD) CASSIDY YOON ([id number]) 1985 F Date Time Provider Department 01/08/21 [...] checked. Advised new thaw plan sent via Do It In Person. Her and her partner will have notarized. Advised we can start her FET process after annual exam. Verbalizes understanding. Rebecca Montgomery RN January 11, 2021 10:22 AM Allergies As of Date: 01/08/2021 (No Known Allergies) Date Reviewed: 01/08/2020 Reviewed by: Briseyda AparicioRn) KOSTA Smith - Fully Assessed Reason for Visit: Nurse To Address [[address]] Primary Visit Diagnosis:Female infertility [N97.9] Order(s):FOLLICULAR US [facility] [[id number]] Order #: [id number]: 1 ESTRADIOL-17B BLD [SQE2] Order #: [id number] FUTURE PROGESTERONE BLD [SQPROG] Order #: [id number] FUTURE methylPREDNISolone (MEDROL) 16 mg tabletTake 1 [...] Encounter Status:Closed by QUE ROSAS on 01/11/21 [facility] Otoniel 12-28-2020 [facility] Telephone (REIBD) CASSIDY YOON ([id number]) 1985 F Date Time Provider Department 12/28/20 LUCIO LAFLEUR During your visit today, we recorded the following information about you: Jamilah Owens Pss 12/28/2020 11:14 AM Signed Patient calling back [...] by ANA ROSA LINDSEY RN on 12/28/20 [facility] 12-16-2020 [facility] Telephone (REIBD) CASSIDY YOON ([id number]) 1985 F Date Time Provider Department 12/16/20 LATOYA BYRNES During your visit today, we recorded the following information about you: Angella Weeks [facility] 12/16/2020 10:00 AM Signed Patient would like [...] by KATHIE SMITH RN on 12/22/20 Normal [facility] Vital Signs Date Time Vital Sign Value Performing Clinician Facility 11-23-2022 10:45-0400 Body height 161.29 cm Birgit Razo Other [facility] 11-23-2022 10:45-0400 Body mass index (BMI) [Ratio] 22.66 kg/m2 Birgit Razo Other [facility] 11-23-2022 10:45-0400 Body temperature 97.3 [degF] Birgit Razo Other [facility] Other 11-23-2022 10:45-0400 Body weight 58.97 kg Birgit Razo Other [facility] Other 11-23-2022 10:45-0400 Diastolic blood pressure 68 mm[Hg] Birgit Razo Other [facility] Other 11-23-2022 10:45-0400 SaO2% (BldA) [Mass fraction] 99 % Birgit Razo Other [facility] Other 11-23-2022 10:45-0400 Systolic blood pressure 116 mm[Hg] Birgit Razo Other [facility] Other 03-21-2022 11:15-0400 Body height 161.29 cm Rishabhalberto Manzanaresdiff Other [facility] Other 03-21-2022 11:15-0400 Body mass index (BMI) [Ratio] 26.88 kg/m2 Rishabh Abigail Other [facility] Other 03-21-2022 11:15-0400 Body weight 69.95 kg Rishabh Haeys Other [facility] Other 03-21-2022 11:15-0400 Diastolic blood pressure 77 mm[Hg] Rishabh Hayes Other [facility] Other 03-21-2022 11:15-0400 Respiratory rate 18 /min Rishabh Hayes Other [facility] Other 03-21-2022 11:15-0400 SaO2% (BldA) [Mass fraction] 99 % Rishabh Hayes Other [facility] Other 03-21-2022 11:15-0400 Systolic blood pressure 117 mm[Hg] Rishabh Manzanaresdiff Other [facility] Other Encounters Encounter Date Encounter Type Care Provider Facility Start: 11-23-2022 End: 11-23-2022 ambulatory Birgit Razo Other [facility] Other Start: 11-23-2022 [facility] visit new patient Birgit yancey [facility] Start: 03-21-2022 Nutrition therapy Rishabh Hayes [facility] Start: 03-21-2022 End: 03-22-2022 ambulatory Yuri Thomas Gumaro [facility] Other Start: 11-14-2021 End: 11-14-2021 ambulatory Jennifer Sheffieldud Facility:[facility] Start: 11-10-2021 End: 11-12-2021 Evaluation and management of inpatient Marie Nataprawira Facility:[facility] Start: 11-03-2021 End: 11-03-2021 ambulatory Chucho Masoni Facility:[facility] Start: 10-13-2021 End: 10-13-2021 ambulatory Marie Nataprawira Facility:[facility] Procedures Date Procedure Procedure Detail Performing Clinician Start: 11-11-2021 Antibody screen Marie dockery Comment on above: Order Comment: Needs drawn per Dulce Maria in Blood Bank. MLG Result Comment: PERF ORMED BY: [facility] [address] [place] [address] PATHOLOGIST TEXTILE CLOTHING AND [employer]OTWEAR MECHANIC CELESTINO LONG M.D. Immunizations Immunization Date Immunization Notes Care Provider Jerome quintero 03-09-2017 tetanus toxoid, redu tutu diphtheria toxoid, and acellular pertussis vaccine, adsorbed [facility] Payers Date Payer Category Payer Self-pay [id number] 2021 Unknown [id number] 2. [id number] 1985 Unknown [id number] 2.16.84 [id number] Unknown [id number] 2.16.8 [id number] Unknown [id number] 2.16.8 [id number] Unknown [id number] 2.16.8 [id number] Unknown [id number] 2.16.8 [id number] Unknown [id number] 2.16.8 [id number] Social History Date Type Detail Facility Unknown if ever smoked [facility] Other Sex Assigned At Sex Assigned At Bir th [facility] Other Start: 1985 Sex Assigned At Female F [facility] Clinical Notes 01-08-2021 to 11-23-2022 Note Date [...] the overall management of her venous disease. [facility] Other 10-03-2022 NotePatient Education Materials Follows: Otitis [...] Follow these instructions at home: ? Take orzw-zjm-[id number] and prescription medicines only as told by [...] provider. Document Revised: 09/13/2021 Document Reviewed: 09/13/2021 [employer] Patient Education ? 2021 [employer] Infectious Disease Sinusitis, Adult Sinusitis is [...] a virus. Sinusitis c (more content not included)...[id number] Evaluation note* Encounter Date Diagnosis Assessment Notes Treatment Notes Treatment Clinical Notes Mar, Abnormal weight gain (ICD-10 - R63.5) Mar, Overweight (BMI 25.0-29.9) (ICD-10 - E66.3) Mar, Depression, unspecified depression type (ICD-10 - F32.9) Mar, Migraine (ICD-10 - G43.909) [facility] Other 10-11-2021 NoteHNO ID: [id number] Author: Que Rosas MD Service: ? Author Type: Physician Type: Progress Notes Filed: 03/29/2021 8:58 PM Note Text: TRANSVAGINAL OB ULTRASONOGRAM Intrauterine di/di twins consistent with clinical dates but only one with cardiac activity Ovaries - normal No free fluid See imaging tab PLAN - refer to OB Que Rosas, [facility]10-11-2021 NoteHNO ID: [id number] Author: Livia Vogel Service: ? Author Type: [...] with OB OB Provider: Dr. Salazar in [place] Livia Vogel Called patient to discuss plan. Patient will move on to OB. Livia Vogel March 29, 2021 1:10 [facility]10-05-2021 NoteHNO ID: [id number] Author: Roxana Rider RN Service: ? Author Type: Registered Nurse Type: Progress Notes Filed: 03/23/2021 1:31 PM Note Text: Received faxed results today from 03/22/21. Appropriate rise in HCG level. Next step for pt is to have OB ultrasound 03/29/21, order in place. Stevie message sent. Called pt with HCG results. Pt denies any bleeding or pain, no OB complaints. Return 03/29/21 at 0800 for ultrasound, sent to schedulers. Reminded pt to continue taking estrace and progesterone daily as directed until instructed to stop. Pt verbalizes understanding. Roxana Rider RN March 23, 2021 8:06 [facility]10-04-2021 NoteHNO ID: [id number] Author: Roxana Rider RN Service: ? Author Type: Registered Nurse Type: Progress Notes Filed: 03/31/2021 9:50 AM Note Text: Have not received HCG levels yet from outside lab. Called pt to ensure she had test completed. Pt states she had level drawn in [place] and instructed them to fax over results. Will follow. Informed pt if dont received by the end of the day, will follow tomorrow. Pt understands. Roxana Rider RN March 22, 2021 2:30 [facility]09-27-2021 NoteHNO ID: [id number] Author: Roxana Rider RN Service: ? Author [...] Roxana Rider RN March 15, 2021 3:20 [facility]09-13-2021 NoteHNO ID: [id number] Author: Que Rosas MD Service: ? Author Type: Physician Type: Procedures Filed: 03/01/2021 2:16 PM Note Text: WHI CARLITOS TRANSFER PROCEDURE NOTE Date: 03/01/2021 Primary Proceduralist: Que Rosas MD Forging Machine Operator(s): Not applicable Informed Consent: Indications: Cassidy Yoon, is a 36 year old female here today for Embryo Transfer. [place] Protocol: Sign In: Personnel: Special Equipment: Patient/Surrogate [...] Yoon DATE: March 01, 2021 TIME: 2:16 [facility]09-13-2021 NoteHNO ID: [id number] Author: Ramonita Guy Service: ? Author Type: Technologist Type: Progress Notes Filed: 03/01/2021 2:01 PM Note Text: Embryo Transfer procedure performed. Detailed notes can be found in the paper chart in the [facility] ? [employer] Office. Yvette Roman, [facility]09-07-2021 NoteHNO ID: [id number] Author: Livia Vogel Service: ? Author Type: [...] Unable to reach patient by phone, sent Do It In Person message with instructions. Asked patient to resend thaw plan and will call back after 1pm. Livia Gellersh February 23, 2021 12:52 [facility]07-23-2021 NoteHNO ID: [id number] Author: Que Rosas MD Service: ? Author [...] which included preparing to see the patient, [id number] patient care, completing clinical documentation, obtaining and/or reviewing separately obtained history and counseling and educating the patient/family/caregiver. Que Rosas M.D.[facility] Center[facility] noteNo assessment information availableOhio State Health System Work Phone: [employer] general Narrative - Reported* Type Description Date Medical History Migraines Medical History PMDD (premenstrual dysphoric dis order) Medical History depression Surgical History colonoscopy Surgical History Hawley teeth 2012 Surgical History D+C ectopic Hospitalization History Childbirth 2017 [facility] Other Reason for visit Narrative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Nort [employer] Other Summary Purpose Family History Relationship Condition Age at Onset Recorded Date/T umberto Not Specified No pertinent family history Unknown Advance Directives No Advanced Directives Records FoundNo Advanced Directives Records FoundNo Advanced Directives Records Found Additional Source Comments INFORMATION SOURCE (unrecogn ized section and content) DATE CREATED AUTHOR 07/16/2021 [facility] DATE CREATED AUTHOR AUTHOR'S ORGANIZ ATION 03/26/2022 [facility] DATE CREATED AUTHOR AUTHOR'S ORGANIZ ATION 09/21/2022 [facility] REASON FOR VISIT (unrecogniz ed section and [...] BE BASED ON THE PRIMARY CLINICAL RECORDS. [facility]. provides no warranty or guarantee of the accuracy or completeness of information in this document.
== END 2023-09-06 11:35 | disposition home or self-care (01) ==
LOC: VC 11:34
PROVIDERS: PCP Radiology Diagnostic Radiology; Visit Provider Radiology Diagnostic Radiology
DX: I80.01 Phlebitis and thrombophlebitis of superficial vessels of right lower extremity (principal)
CPT/HCPCS: 93971; G0463

== ENCOUNTER 2023-10-03 09:38 | Outpatient (OUT) | payer OTHER, SELFPAY ==
[2023-10-03] MEDS: LIDOCAINE HCL 1% 100 MG/10 ML MDV INJ (09:38)
--- NOTE | 2023-10-03 09:38 | VEIN_ITS ---
[address] [address] Patient Name: LONG YOON MRN: [id number] date: 1985 Sex: F Assigned Patient Location: Current Patient Location: Accession/Order Number: [id number] Exam Date: 10/03/2023 09:40 Report Date: 10/03/2023 11:38 At the request of: LOLA MARINELLI Procedure: VC Endovenous Ablation 1VeinLT EXAMINATION: VC Endovenous Ablation 1Vein left great saphenous vein HISTORY: I83.813 Pain due to varicose veins of bilateral legs COMPARISON: No relevant comparison available. TECHNIQUE: The risks and benefits of the procedure had been previously discussed, and were rediscussed at length. Informed written consent was obtained. Conchita Perez and Deny Dejesus assisted. Time out procedure was performed. The left lower extremity was prepared and draped in the usual sterile fashion to allow knee flexion in the sterile field. Duplex ultrasound probe was draped in a sterile cover, sterile transmission gel was used. Venous mapping was performed with the areas of dilation and large tributaries marked. The total length was 26 cm from the entry at the knee to 3 cm below the saphenofemoral junction. The diameter of the greater saphenous vein ranged from 4-9 mm. A 30 gauge needle and 1% buffered lidocaine was used to anesthetize the entry site. A 4 mm incision was made with a scalpel and the saphenous vein was entered percutaneously under direct ultrasound guidance with a micropuncture set, 2 sticks were successful in gaining access. A micro-guide wire was inserted and the needle removed. A micro-set including a dilator was inserted over the microwire and the needle and dilator were removed. A 0.018 guide wire was inserted through the micro-set and threaded through the saphenous vein to the saphenofemoral junction. The dilator was removed and an introducer sheath was inserted over the wire until the end of the sheath entered the saphenofemoral junction. The dilator and wire were removed and the 600 micron fiber was introduced and placed and positioned so that it extended beyond the sheath and was 3 cm peripheral to the saphenofemoral femoral junction. Final position of the fiber was determined by ultrasound guidance and duplex imaging. Tumescent anesthetic was delivered by ultrasound guidance. 175 cc of fluid was delivered along the entire course of the saphenous vein. The solution consisted of 1000 cc of normal saline with 40 mL of 1% lidocaine and 20 mL of sodium bicarbonate. A final positioning check was made. The energy source was turned on by means of the foot pedal and the fiber and sheath were withdrawn. The total number of Joules delivered was 1232. The laser was active for 154 seconds under continuous pulse, average laser use of 8 J. Laser start time 10:27 AM 10/03/2023 . Laser stop time 10:30 AM 10/03/2023 . A duplex ultrasound revealed compressibility and flow at the saphenofemoral junction immediately after the procedure. Hemostasis at the access site was achieved. The skin incision of the saphenous vein was closed with a 4 x 4. A compression stocking was applied. Postop instructions were given. A follow up appointment was recommended and scheduled. The patient tolerated the procedure well and was discharged in good condition . VEIN/VC Endovenous Ablation 1VeinLT IMPRESSION: Technically successful endovenous laser ablation left great saphenous vein Electronically authenticated by: LOLA MARINELLI Date: 10/03/2023 11:38
[2023-10-03] MEDS: 0.9 % SODIUM CHLORIDE 500 ML, LIDOCAINE HCL 20 ML, SODIUM BICARBONATE 10 MEQ INJ (09:39)
--- OUTSIDE RECORDS SUMMARY | 2023-10-03 09:59 | XMS_ITS | CCD ---
Author Organization [facility] Care Team Providers Care Vice President Of News Name Role Phone Rishabh Hayes Unavailable Yuri [...] Coding Summaryon 03-25-2022 Coding Summary HTMLBase 64 DqkdjagaHIw5fWn+PGhlYWQ +VE9ACRHcJ29fkNWkhK4NV1 jXLY9PFFHMUAUVMI5RTP2kq DN7HRigU3QcapBn WpnvnSPtWL48DTz5MHL7eCn pBKighZ1wnFFhO4g6OoEkMJ 63yC42EZypXZZiRhE4NbYnk jsgbWFy Q7tbWaCrkVAeBsq+PHRhYmx lIHdpZHRoPScxMDAlJyBzdH qjIH5nRb3bTTKwULCcePlmr HNlOiBj o3rgCSDgRHheQN2jxCflV9A tiGI2HDDtg1v6Jc66pNZ+PH KwOUM0mHqhPYfnz143YoUga 5jdARX2 zBKnAYcjRKC7H35fl1N9KLS oVGEmGQT6zAJ8eR5wgLhqek muW9DhjFSmPzX5XGT2fMSca Q5kwJsq dxrlqV1cJlj+Q15EFZ8BPPL KCD4MGmq3M4UoRqmumIM+PC 37TJQqVV79fWPjbHHad9vhs Oe8OmTj RRGoHNN0iUbgSSxes2BnFHF qV37pjYMby9T4GOVrfQgyeP NlXeOzfEB1eO9iMMujgcylc 2hvdzsn Qbpvu9qgwc61cC39T01zBXi bZHUfYCY9IVOfNEImvTikln 7dqD8xPj3+SSisd2tdf6cbb Gl0LrPd YMTddwCetIzdRUE4f9JqGs1 5B1GxqKorj5FyXai3dj90nU Udi6K3ySU0ISceRAKdzP0vL WxlZnQ6 ZFTmYrGdiY51gTFzTJtwNx1 uaZisrTisDZ0oJHUhkgxeYH ZulP0vBRJmpRKzzOdtST3lR TBpbjtm z515XgPrRIL2VODltMMqY4C nhS0kTbQmMHOxXFQjJ7PyrK EvCYuiQ572PUgkLaV4AMKeq nJvB5Mc TXYjqFfnFmO3n2H3Wy4Zl4J xwlpaACO1EIkuHEEnMjZ4Fm CcHxQ7F4IqSda7KOCppDpqN T0iJ5Eu AMYpvrknqyettBW8TMRcXME ioT79dFRaPEjlBh5do3O5d2 94XGTpKITeaC86Bz3ttEnfJ TBwdCBU kW9vyixen4ybibbnFjXlNQG cNNm2RYy3JQZpaNmiAfLiND X2KlB6YJQ0iZWcaU9auIpou pvrtE0r Oyc+D42qxN8zHIL1VLW7fge lSYWzehBkQU62OX30E5PaKi wvdGFibGU+PGRpdiBzdHlsZ H2zMaCi y1pgt2PyBLzwE7NbBHBcKBx qPas2BREkWOS4bEU5pK6jVN OeSKexf9X9lJK6C7UmbhPmp p1mi4zr DOQlQUgrN34yzIGvm1X1DYX umLC6EEOpnQruMoMjkC08Gh c+LCUyjQebr8ZcWxabf8lsi 6mpvGh5 VeHnIZMsenChsOvbKNB6n0V qBh31I95vDAlaSXRiHWOzIC AfBYElmSrcik8koK4sBt6+P GNvbCB3 yPI3eW5dHSUdFuV4EMmaQ45 1WeBsaWVeUchbi8jhr6eopS r3QfKlQIRbggLlaLfcUUY7s 2ArOg67 U28oBBnbZLDuRZIiHYQgCTS qvSkqop0peK5rBh5+PC9jb2 ssaz74vE82zQY+OFMaWRF8j WxlPSdw XWTxmN9uNZuyFdA8UJJmHdF zxL53aBSsVLktVt1nrBvsiH ppZY4rVOZrwwgxn334FeGxv 2xkIDEw pXCuLNreLPA9L61me7X7XNC jUMKrSDA2dWS9xQ4yqPsfhm ogbGVmdDsgdmVydGljYWwtY QjpB078 IHRvcDsnPlBhdGllbnQgTmF iLTq5S1ZgLpt6BQHbsVubEQ 6ziVOgUQieOj2oyNmonGrdN X0jVWFi kquhr155WaCqu8lcUJJoiYB pTOmnFPM4B00ll1K2YCJcYB YvTJK8cFJ4kI7zlSqtlqock GVmdDsg bcDsxEccVNebDGczG011SOH tlRjhLoTsocVwFMJrfHX6WC 96DS34fADqc4V5kNI5J1LkQ GRpbmct qktsgIA5LHTxOGVvzW22Yi8 vfJgtBw3aOAHkVVM3HMUnzZ TaK8QhiT0nZzZxGMFfTATmL 3RleHQt NTfaM581ATokHkG9ZBRctvW eQ5VmAYKheVhrDaR7k0V5Cm 0GU6Y7YG86WQ88sLEem6E0d YW2B2Qn OXUxzgslzsrzpYK5GAXyRTF tdJ22Hj1ttLgjHb4vQFRyHS B9DUGkeCRcN2QcvH0qHlSpI DAwMDAw O2NizOGsLTtdY723YSklXdU 3ZVUxjnLsW2RzOPDjuOjyBo J6z5E3We2ZETe4XI80FJ52a ADcm0E2 vNB4I9PtXJWpkzhpvsikqMG 3RIDyMZIjoL70Il3brPmgIa 3gJVSaTCB0FZKybLTdF2Jea J8qBvYw SJGkLCRmM3AtcRPvCSgxF69 5VVcjUcA1SJXdgcBqH7ToAJ NtwZtkDmR9r9W6Pw7BZJVpZ T04GAB9 eXA0VW48TE42T8QrYospgNQ ibGU+PHRhYmxlIHdpZHRoPS acVCPcJcItqOqiDX2hWe0yH GVyLWNv oMxczHUkJvPrw5bbYKVxZNo xLP4cnKinB7DxnMM3KCFtn5 a0Xl26H64jV8ZnnOJ+PGNvb XV2nNE3 bV9fMaJbEkW3AKnyK912TzC elMYrZglya1xsq1fzpBe5Of T4BBDwxcJaqPxgZNQ0q8TxZ p86V71w IHdpZHRoPSIxNSUiIHZhbGl wxz4jqL3pJo6+WZGdfVZ2jY P9xC6cJtDaZaD2MXkfL888X nRvcCIv Osyyw2wan6zamXm1JqVpOYU qfvZunNppSGK9p7VdPj29H1 GohGfck3PvBfh2ch82jLOhy 3E6jIH4 R8BaKOWfxmkldXQtgMedGV1 ePUPswhacCWWtwB7lMLPkK1 p8HjBtJqP5TWaxX6XmffH4K DEwcHQg SYqnHAL8F99og6D6YLXeWQP aXHZ6yAQ7wU7yzMdwpeuqaK VmdDsgdmVydGljYWwtYWxpZ 246IHRv nYupYOMdrD5bFPPslALfwMa hAZ9zEHLehdkrUsuLFPBCDT 4sIEVMSVpBQkVUSCBKRUFOP M89MG58 bDXmz8O9jAB7Q9AsVNWbnkn dqeyhbAK4AFTpYALroH23qN MwJLzwOf0ur2R9b040BUZjT DUwaW47 Pf3fnIngITJmdNHHfG4erni en1azjxwoWdUcPANbWIh9IP h8QRLwePhxPiHbSLQ1YtQ2G YQ9zUNm qC5ayFjizrygkT1dDeb+MDk eDSRpTCq3KDwwnKD+PHRkIH W3lTbgBMjhGCIfdC2iSGFvT 0a8TdGf AyS7NNuxN6KoUIQiifojJd3 9cX6qTbJzJjM5RUuiZ8Gexu B5QQQrvZZnULkuPXD8Y84oa 7J7DYVk NIQjVFC1uTE1wU4kpYfyqsi gbGVmdDsgdmVydGljYWwtYW ujI009DWAkxRppEvB9YPqmF XJzPC90 SQ69tSEix1R3oZY0K6UgZFL nghsvixanhUK7WVCwSHCqzS 01aOThGLbuRw8wt4M9j971Q DAuMDUw zE05Vh2hpYsrAIHvvPZLcL9 mcujnr1faxpjxTiExJHQeJL r8BYf5PPRulOrnEoAhGHB0A iB1BFS7 bLWxxR9waJonxbkxgR6gXyo +ZpBNUKjCOD91WS89hUSwm3 W5bEB6X6QrATBpdsnizsdsm BT0ZTPe KLHgcY41pEOuZWfvNy4wk9D 2g231GCLmCDXoxE55Dg1jzF ceALXsoXYGlC9gixpqt3ryc jogIzAw MKPsNRl1FCv9YYUnaTzhPcW yXSA7NkP8SPG3kEAeaP6byS ruomphtO9cEln+V0J5L7BbV jwvdHI+ ZB14MIZaIE93qVEqaXWcu4o uzCj8GdSmIBNmGLK9rTclQJ gyf4UiWKRlL35qyETdk3K7S GNvbGxh nXQhAbMvrBZ0nX6eRHhkgwa uc9rqcihjHwekz2cray84kT 34H79xXXbyAGDgDBFdANSlU HZhbGln ub5frU1pCn5+BZRgtBF9sUV 5nI3rWmTbPoW8ZJozO208Xk GlqFJnHiemv4iee3zppWj1O jIwJSIg tjPrrFroHUA7h3GtQs54U23 sIHdpZHRoPSIyMCUiIHZhbG gxem9ibR5bFp9+PB4ij2xoj y64hN26 dHI+CTRoRCA4dXhuNRfqXMA jvI9iRGqpTgA9FCVqVnGllB 46sTEbIYfeYt2eoSribWgtR Y9oINNq hkjgx264JwGho4bkGQPgnVE zEVfcFNA7Z60mt6K5XWZqXM RdYXZ2bZF5aV7iwNzoaciri GVmdDsg hnHnzAgoNSseJCaoV977JSG chCakCnFhqTBoW0mkrwXEBY 1lOjwvdGQ+JTWpTOU5wSmuT SdwYWRk lC6aZRCtE9z2XzAmIeT9RAo aX6LtbrZ5LRXogZRzBXGqhQ CPpE8pfqwbg6ygedzeYpTbU DAwMDt0 LYh2XAHclWkcWtMcKPI6CeF 0HEC2aANyxZ2btQwyqnxcwU 9wOyc+RklOOjwvdGQ+PHRkI LJ6cMmh WQdtGYAblG8kUWAqD2i3JlU wBmI0OLzqM3LxdcW4TVBwiE VcVQXhdDBXjW7gcgymj9jxc jogIzAw XDOvKTb5FEh3UPSlpKwjAgJ pLZQ7HwR0RCT9qQYapE5coC qeuhwuuI0fWhp+TVJOOjwvd GQ+PHRk JDK6jSniXCcgWRJlmG1tXYZ cT6f8ZeHrAgO4PJvvM0Ucod R1ODYphEHrVGRdbNXQpK4ep zhib0hq dlcbLeTbIHZuWBd8YOe5VDA ebQjiXfPiYZB7KvU7GVE9pM HcuS1byDmjylwprG2wLzc+U QM7HYV6 JQ22MA83G9DcUnfhqHXouLB +PHRhYmxlIHdpZHRoPScxMD ScTiXcrRlbXF0tRg9cVRSmE WNvbGxh cHN (more content not included)... Normal [facility] ED Clinical Summaryon 2021 ED Clinical Summary [facility] ? Urgent Care [address] [place], [place] [id number] Clinical Summary PERSON INFORMATION Name: CASSIDY YOON Age: 37 Years Sex: FEMALE : 1985 MRN: Acct#: Visit Reason: Cough; UC - Sore Throat; CONGESTION, SORE THROAT, BODY ACHES Arrival: 03/21/2022 11:57:18 Discharge: 03/21/2022 13:07:00 LOS: 000 01:10 Check In: 03/21/2022 11:57:18 Checkout: 03/21/2022 13:07:00 Address: [address] [place] [address] [facility] [address] PCP: ASHISH HAIDER PROVIDER INFORMATION Provider Role Assigned Unassigned Yuri Geiger ED PA 03/21/2022 12:00:10 Fior Shields RETORT FURNACE HELPER Nurse 03/21/2022 12:08:48 VITALS INFORMATION Vital Sign [...] Adult Follow-Up: With: Address: When: ASHISH HAIDER [address] [place] [address] Business (1) Within 2 to [...] r verbalizes understanding of instructions given Comment: [facility] ED Note-Nursingon 03-21-2022 ED Note-Nursing pa in room for exam [facility] ED Patient Summaryon 022 ED Patient Summary [facility] ? Urgent Care [address] [place], [place] [id number] PATIENT DISCHARGE INSTRUCTIONS Patient Information Name: CASSIDY YOON Age: 37 Years Date of : 1985 Reason For Visit: Cough; UC - Sore Throat; CONGESTION, SORE THROAT, BODY ACHES Arrival Time: 03/21/2022 11:57:18 Primary Care Physician: ASHISH HAIDER Attending Physician: Yuri Geiger Comment: Patient Education With: Address: When: ASHISH HAIDER [address] [place] [address] Business (1) Within 2 to [...] home: Medicines ? Take, use, or apply uozw-vcb-mvscjbo and prescription medicines only as told by your health care provider. These may include nasal sprays. ? If you were prescribed an antibiotic medicine, take it as told by your health care provider. Do not stop taking the antibiotic even if you start to feel better. Hydrate and humidif (more content not included)... Normal [facility] Urgent Care Note- Provideron 03-21-2022 Urgent [...] congestion for 2 weeks. states went to [facility] 2 weeks ago and was put on [...] and Plan Diagnosis Acute left otitis media ([id number] H66.92, Discharge, Medical) (more content not included)... Normal [facility] [place] 022 Urgent Care Record [facility] ? Urgent Care [address] [place] [id number] PATIENT DISCHARGE INSTRUCTIONS Patient Information Name: CASSIDY YOON Age: 37 Years Date of : 1985 Reason For Visit: Cough; UC - Sore Throat; CONGESTION, SORE THROAT, BODY ACHES Arrival Time: 03/21/2022 11:57:18 Primary Care Physician: ASHISH HAIDER Attending Physician: Yuri Geiger Comment: Visit Diagnosis: Diagnoses This Visit Acute left otitis media (H66.92) Acute maxillary sinusitis (J01.00) Cough ([id number]) Hypertrophy of nasal turbinates (J34.3) UC - Sore Throat ([id number]) If you received any narcotics, sedation, or [...] legal documents With: Address: When: ASHISH HAIDER [address] [place] [id number] Business (1) Within 2 to 4 days [...] and treatment you received today in the [facility] were for an urgent problem and are not intended as complete care. It is important for you to follow up with a doctor, nurse practitioner, or physician?s personal injury legal assistant for ongoing care. If your symptoms [...] can reach you if necessary. [facility] has provided you with a complete list of medications post discharge. Please inform your heater tender/provider of your visit and for further instruction on these medications. Any specific questions regarding your chronic medications and dosages should be discussed with your primary care physician(s) and/or pharmacist. New Medications [facility] [address], [place] [id number], [phone] azithromycin (Azithromycin 5 Day Dose Pack 250 [...] Behind you (more content not included)... Normal [facility] Complete Blood Count Auto Di ffon 11-12-2021 Basophils (Bld) [#/Vol] 0.0 10*3/uL Normal 0.0-0.2 [facility] Comment on above: Order Comment: Comme nt Draw at 630 am Result Comment: PERF ORMED BY: [place] [address] PATHOLOGIST NUCLEAR DESIGN ENGINEER CELESTINO LONG M.D. Performed By: #### C BC #### [address] Basophils/100 WBC (Bld) 0.4 % Normal . [facility] Comment on above: Order Comment: Comme nt Draw at 630 am Performed By: #### C BC #### [address] Eosinophils (Bld) [#/Vol] 0.1 10*3/uL Normal 0.0-0.45 [facility] Comment on above: Order Comment: Comme nt Draw at 630 am Performed By: #### C BC #### [address] Eosinophils/100 WBC (Bld) 0.9 % Normal . [facility] Comment on above: Order Comment: Comme nt Draw at 630 am Performed By: #### C BC #### [address] Erythrocyte distribution width (RBC) [Ratio] 13.5 % Normal 11.9-15.3 [facility] Comment on above: Order Comment: Comme nt Draw at 630 am Performed By: #### C BC #### [address] Hematocrit (Bld) [Volume fraction] 26.9 % Low 34.0-46.4 [facility] Comment on above: Order Comment: Comme nt Draw at 630 am Performed By: #### C BC #### [address] Hemoglobin (Bld) [Mass/Vol] 8.9 g/dL Low 11.8-15.4 [facility] Comment on above: Order Comment: Comme nt Draw at 630 am Performed By: #### C BC #### [address] Lymphocytes (Bld) [#/Vol] 2.9 10*3/uL Normal 1.00-4.8 [facility] Comment on above: Order Comment: Comme nt Draw at 630 am Performed By: #### C BC #### [address] Lymphocytes/100 WBC (Bld) 30.4 % Normal . [facility] Comment on above: Order Comment: Comme nt Draw at 630 am Performed By: #### C BC #### [address] [address] [place] MCH (RBC) [Entitic mass] 29.3 pg Normal 24.7-34.3 [facility] Comment on above: Order Comment: Comme nt Draw at 630 am Performed By: #### C BC #### [address] MCV (RBC) [Entitic vol] 88.5 fL Normal 80-100 [facility] Comment on above: Order Comment: Comme nt Draw at 630 am Performed By: #### C BC #### [address] Mean Corpuscular HGB Conc 33.2 g/dL Normal 32.0-35.0 [facility] Comment on above: Order Comment: Comme nt Draw at 630 am Performed By: #### C BC #### [address] Monocytes (Bld) [#/Vol] 0.6 10*3/uL Normal 0.0-0.8 [facility] Comment on above: Order Comment: Comme nt Draw at 630 am Performed By: #### C BC #### [address] Monocytes/100 WBC (Bld) 5.8 % Normal . [facility] Comment on above: Order Comment: Comme nt Draw at 630 am Performed By: #### C BC #### [address] Neutrophils (Bld) [#/Vol] 6.0 10*3/uL Normal 1.8-7.7 [facility] Comment on above: Order Comment: Comme nt Draw at 630 am Performed By: #### C BC #### [address] Neutrophils/100 WBC (Bld) 62.5 % Normal . [facility] Comment on above: Order Comment: Comme nt Draw at 630 am Performed By: #### C BC #### [place] [address] [place] Nucleated RBC/100 WBC (Bld) [Ratio] 0.0 % Normal 0-0.5 [facility] Comment on above: Order Comment: Comme nt Draw at 630 am Performed By: #### C BC #### [address] Platelet mean volume (Bld) [Entitic vol] 9.8 fL Normal 6.3-10.7 [facility] Comment on above: Order Comment: Comme nt Draw at 630 am Performed By: #### C BC #### [address] Platelets (Bld) [#/Vol] 182 10*3/uL Normal 150-450 [facility] Comment on above: Order Comment: Comme nt Draw at 630 am Performed By: #### C BC #### [address] RBC (Bld) [#/Vol] 3.04 10*6/uL Low 3.60-5.00 [facility] Comment on above: Order Comment: Comme nt Draw at 630 am Performed By: #### C BC #### [address] WBC (Bld) [#/Vol] 9.6 10*3/uL Normal 4.5-11.0 [facility] Comment on above: Order Comment: Comme nt Draw at 630 am Performed By: #### C BC #### [address] Screenon 11-11-2021 Screen Negative Normal [facility] Comment on above: Order Comment: Needs drawn per Dulce Maria in Blood Bank. MLG Result Comment: 1 do se(300mcg)of RhoGAM indicated Rhogam Workupon 11-11-2021 Rhogam Candidate Yes Normal [facility] Comment on above: Order Comment: Needs drawn per Dulce Maria in Blood Bank. MLG RHOGAM DOSE POST Normal [facility] Comment on above: Order Comment: Needs drawn per Dulce Maria in Blood Bank. MLG Result Comment: See Fetalscreen result PERFORMED BY: [address] [address] PATHOLOGIST NUCLEAR DESIGN ENGINEER CELESTINO LONG M.D. ABO and Rh group Nom (Bld) Blood group O Rh(D) negative Normal [facility] Comment on above: Order Comment: Needs drawn per Dulce Maria in Blood Bank. MLG Result Comment: PERF ORMED BY: [facility] [address] [place] [address] PATHOLOGIST NUCLEAR DESIGN ENGINEER CELESTINO LONG M.D. COVID-19 Antigenon 2 COVID-19 [...] developed and its performance characteristic determined by [facility] and validated at [facility]. This test has not been [...] for SARS Antigen by SHILA PERFORMED BY: [facility] [address] [place] [address] PATHOLOGIST NUCLEAR DESIGN ENGINEER CELESTINO LONG M.D. Normal [facility] Comment on above: Performed By: #### C OVID-19 ROWAN, SOFIANEG #### [address] Complete Blood Count Auto Di ffon 11-10-2021 Basophils (Bld) [#/Vol] 0.0 10*3/uL Normal 0.0-0.2 [facility] Comment on above: Result Comment: PERF ORMED BY: [place] [address] PATHOLOGIST NUCLEAR DESIGN ENGINEER CELESTINO LONG M.D. Performed By: #### C BC #### [address] #### RPR W RFX #### [facility] , Basophils/100 WBC (Bld) 0.4 % Normal . [facility] Comment on above: Performed By: #### C BC #### [address] #### RPR W RFX #### [facility] , Eosinophils (Bld) [#/Vol] 0.1 10*3/uL Normal 0.0-0.45 [facility] Comment on above: Performed By: #### C BC #### [facility] [address] [place] [address] #### RPR W RFX #### [facility] , Eosinophils/100 WBC (Bld) 1.0 % Normal . [facility] Comment on above: Performed By: #### C BC #### [facility] [address] [place] [address] [place] #### RPR W RFX #### [facility] , Erythrocyte distribution width (RBC) [Ratio] 13.8 % Normal 11.9-15.3 [facility] Comment on above: Performed By: #### C BC #### [facility] [address] [place] [address] #### RPR W RFX #### [facility] , Hematocrit (Bld) [Volume fraction] 32.7 % Low 34.0-46.4 [facility] Comment on above: Performed By: #### C BC #### [facility] [address] [place] [address] #### RPR W RFX #### [facility] , Hemoglobin (Bld) [Mass/Vol] 10.9 g/dL Low 11.8-15.4 [facility] Comment on above: Performed By: #### C BC #### [address] #### RPR W RFX #### [facility] , Lymphocytes (Bld) [#/Vol] 2.6 10*3/uL Normal 1.00-4.8 [facility] Comment on above: Performed By: #### C BC #### [address] #### RPR W RFX #### [facility] , Lymphocytes/100 WBC (Bld) 31.3 % Normal . [facility] Comment on above: Performed By: #### C BC #### [facility] [address] [place] [address] #### RPR W RFX #### [facility] , MCH (RBC) [Entitic mass] 29.2 pg Normal 24.7-34.3 [facility] Comment on above: Performed By: #### C BC #### [facility] [address] [place] [address] [place] #### RPR W RFX #### [facility] , MCV (RBC) [Entitic vol] 87.3 fL Normal 80-100 [facility] Comment on above: Performed By: #### C BC #### [facility] [address] [place] [address] #### RPR W RFX #### [facility] , Mean Corpuscular HGB Conc 33.5 g/dL Normal 32.0-35.0 [facility] Comment on above: Performed By: #### C BC #### [facility] [address] [place] [address] #### RPR W RFX #### [facility] , Monocytes (Bld) [#/Vol] 0.6 10*3/uL Normal 0.0-0.8 [facility] Comment on above: Performed By: #### C BC #### [facility] [address] [place] [address] #### RPR W RFX #### [facility] , Monocytes/100 WBC (Bld) 7.1 % Normal . [facility] Comment on above: Performed By: #### C BC #### [facility] [address] [place] [address] #### RPR W RFX #### [facility] , Neutrophils (Bld) [#/Vol] 5.0 10*3/uL Normal 1.8-7.7 [facility] Comment on above: Performed By: #### C BC #### [facility] [address] [place] [address] [place] #### RPR W RFX #### [facility] , Neutrophils/100 WBC (Bld) 60.2 % Normal . [facility] Comment on above: Performed By: #### C BC #### [facility] [address] [place] [address] [place] #### RPR W RFX #### [facility] , Nucleated RBC/100 WBC (Bld) [Ratio] 0.1 % Normal 0-0.5 [facility] Comment on above: Performed By: #### C BC #### [address] [address] [place] #### RPR W RFX #### [facility] , Platelet mean volume (Bld) [Entitic vol] 9.7 fL Normal 6.3-10.7 [facility] Comment on above: Performed By: #### C BC #### [facility] [address] [place] [address] #### RPR W RFX #### [facility] , Platelets (Bld) [#/Vol] 222 10*3/uL Normal 150-450 [facility] Comment on above: Performed By: #### C BC #### [facility] [address] [place] [address] #### RPR W RFX #### [facility] , RBC (Bld) [#/Vol] 3.75 10*6/uL Normal 3.60-5.00 [facility] Comment on above: Performed By: #### C BC #### [facility] [address] [place] [address] #### RPR W RFX #### [facility] , WBC (Bld) [#/Vol] 8.4 10*3/uL Normal 4.5-11.0 [facility] Comment on above: Performed By: #### C BC #### [facility] [address] [place] [address] [place] #### RPR W RFX #### [facility] , OB Urine Drug Screen (NO THC )on 11-10-2021 Amphetamine Screen,Urine Negative Normal Negative [facility] Comment on above: Performed By: #### U A OBUDS #### [address] Barbiturate Screen,Urine Negative Normal Negative [facility] Comment on above: Performed By: #### U A, OBUDS #### [address] Benzodiazepines Screen,Urine Negative Normal Negative [facility] Comment on above: Performed By: #### U A, OBUDS #### [facility] [address] [place] [address] Cocaine Screen,Urine Negative Normal Negative [facility] Comment on above: Performed By: #### U A, OBUDS #### [address] Opiate Screen,Urine Negative Normal Negative [facility] Comment on above: Performed By: #### U A, OBUDS #### [address] Phencyclidine Screen, Urine Negative Normal Negative [facility] Comment on above: Result Comment: Thes e are unconfirmed results and should not be used for legal purposes. Drug Cut-Off Concentration: AMPH 1000 ng/mL RADHA 200 ng/mL FERMIN 200 ng/mL COCM 300 ng/mL OP 300 ng/mL PCP 25 ng/mL PERFORMED BY: [place] [address] PATHOLOGIST NUCLEAR DESIGN ENGINEER CELESTINO LONG M.D. Performed By: #### U A, OBUDS #### [address] RPR w/rfx to Quant TP Abson 11-10-2021 RPR, Rfx Quant RPR Non-Reactive Normal Non Reactive [facility] Comment on above: Result Comment: Perf ormed at: CB - [facility] [address] [id number] Water Resource Engineer: Jose Baeza PhD, Phone: [phone] PERFORMED BY: [place] [address] PATHOLOGIST NUCLEAR DESIGN ENGINEER CELESTINO LONG M.D. Performed By: #### C BC #### [address] #### RPR W RFX #### [facility] , Rowan Ag Negativeon 11-11-19 Rowan Ag Negative Negative Normal Negative [facility] Comment on above: Result Comment: This is a duplicate Rowan SARS Antigen (SHILA) result to be used for statistical tracking purpose only. PERFORMED BY: [place] [address] PATHOLOGIST NUCLEAR DESIGN ENGINEER CELESTINO LONG M.D. Performed By: #### C OVID-19 ROWAN, SOFIANEG #### [facility] [address] [place] [address] Urinalysison 11-10-2021 Appearance (U) Clear Normal Clear [facility] Comment on above: Order Comment: Name Collection Type:: Clean-Voided Midstream Performed By: #### U A, OBUDS #### [address] Bilirubin,Urine Negative Normal Negative [facility] Comment on above: Order Comment: Name Collection Type:: Clean-Voided Midstream Performed By: #### U A, OBUDS #### [address] Color (U) Yellow Normal Yellow [facility] Comment on above: Order Comment: Name Collection Type:: Clean-Voided Midstream Performed By: #### U A, OBUDS #### [address] Glucose Ql (U) Normal Normal Normal [facility] Comment on above: Order Comment: Name Collection Type:: Clean-Voided Midstream Performed By: #### U A, OBUDS #### [place] [address] [place] Ketones Ql (U) Negative Normal Negative [facility] Comment on above: Order Comment: Name Collection Type:: Clean-Voided Midstream Performed By: #### U A, OBUDS #### [address] Leukocyte esterase Test strip Ql (U) Negative Normal Negative [facility] Comment on above: Order Comment: Name Collection Type:: Clean-Voided Midstream Performed By: #### U A, OBUDS #### [place] [id number] [place] Nitrite,Urine Negative Normal Negative [facility] Comment on above: Order Comment: Name Collection Type:: Clean-Voided Midstream Performed By: #### U A, OBUDS #### [address] Occult Blood,Urine Negative Normal Negative [facility] Comment on above: Order Comment: Name Collection Type:: Clean-Voided Midstream Result Comment: PERF ORMED BY: [place] [address] PATHOLOGIST NUCLEAR DESIGN ENGINEER CELESTINO LONG M.D. Performed By: #### U A, OBUDS #### [address] pH (U) 6.5 [pH] Normal 5.0-9.0 [facility] Comment on above: Order Comment: Name Collection Type:: Clean-Voided Midstream Performed By: #### U A, OBUDS #### [address] Protein,Urine Negative Normal Negative [facility] Comment on above: Order Comment: Name Collection Type:: Clean-Voided Midstream Performed By: #### U A, OBUDS #### [address] Specificy [place],Urine 1.005 Normal 1.001-1.030 [facility] Comment on above: Order Comment: Name Collection Type:: Clean-Voided Midstream Performed By: #### U A, OBUDS #### [place] [address] [place] Urobilinogen,Urine Normal Normal Normal [facility] Comment on above: Order Comment: Name Collection Type:: Clean-Voided Midstream Performed By: #### U A, OBUDS #### [address] OB Urine Drug Screen (NO THC )on 11-03-2021 Amphetamine Screen,Urine Negative Normal Negative [facility] Comment on above: Performed By: #### O BUDS, UA #### [address] Barbiturate Screen,Urine Negative Normal Negative [facility] Comment on above: Performed By: #### O BUDS, UA #### [address] Benzodiazepines Screen,Urine Negative Normal Negative [facility] Comment on above: Performed By: #### O BUDS, UA #### [address] Cocaine Screen,Urine Negative Normal Negative [facility] Comment on above: Performed By: #### O BUDS, UA #### [address] Opiate Screen,Urine Negative Normal Negative [facility] Comment on above: Performed By: #### O BUDS, UA #### [address] Phencyclidine Screen, Urine Negative Normal Negative [facility] Comment on above: Result Comment: Thes e are unconfirmed results and should not be used for legal purposes. Drug Cut-Off Concentration: AMPH 1000 ng/mL RADHA 200 ng/mL FERMIN 200 ng/mL COCM 300 ng/mL OP 300 ng/mL PCP 25 ng/mL PERFORMED BY: [place] [address] PATHOLOGIST NUCLEAR DESIGN ENGINEER CELESTINO LONG M.D. Performed By: #### O BUDS, UA #### [address] Urinalysison 11-03-2021 Appearance (U) Clear Normal Clear [facility] Comment on above: Order Comment: Name Collection Type:: Clean-Voided Midstream Performed By: #### O BUDS, UA #### [address] Bilirubin,Urine Negative Normal Negative [facility] Comment on above: Order Comment: Name Collection Type:: Clean-Voided Midstream Performed By: #### O BUDS, UA #### [address] Color (U) Yellow Normal Yellow [facility] Comment on above: Order Comment: Name Collection Type:: Clean-Voided Midstream Performed By: #### O BUDS, UA #### [place] [address] [place] Glucose Ql (U) Normal Normal Normal [facility] Comment on above: Order Comment: Name Collection Type:: Clean-Voided Midstream Performed By: #### O BUDS, UA #### [place] [address] [place] Ketones Ql (U) Negative Normal Negative [facility] Comment on above: Order Comment: Name Collection Type:: Clean-Voided Midstream Performed By: #### O BUDS, UA #### [address] Leukocyte esterase Test strip Ql (U) Negative Normal Negative [facility] Comment on above: Order Comment: Name Collection Type:: Clean-Voided Midstream Performed By: #### O BUDS, UA #### [place] [address] [place] Nitrite,Urine Negative Normal Negative [facility] Comment on above: Order Comment: Name Collection Type:: Clean-Voided Midstream Performed By: #### O BUDS, UA #### [place] [address] [place] Occult Blood,Urine Negative Normal Negative [facility] Comment on above: Order Comment: Name Collection Type:: Clean-Voided Midstream Result Comment: PERF ORMED BY: [place] [address] PATHOLOGIST NUCLEAR DESIGN ENGINEER CELESTINO LONG M.D. Performed By: #### O BUDS, UA #### [facility] [address] [place] [address] [place] pH (U) 6.5 [pH] Normal 5.0-9.0 [facility] Comment on above: Order Comment: Name Collection Type:: Clean-Voided Midstream Performed By: #### O BUDS, UA #### [place] [address] [place] Protein,Urine Negative Normal Negative [facility] Comment on above: Order Comment: Name Collection Type:: Clean-Voided Midstream Performed By: #### O BUDS, UA #### [address] Specificy [place],Urine 1.005 Normal 1.001-1.030 [facility] Comment on above: Order Comment: Name Collection Type:: Clean-Voided Midstream Performed By: #### O BUDS, UA #### [address] Urobilinogen,Urine Normal Normal Normal [facility] Comment on above: Order Comment: Name Collection Type:: Clean-Voided Midstream Performed By: #### O BUDS, UA #### [address] Strep B Cultureon 10-13-2021 Strep B Culture Reason for Exam 35 weeks gestation of ; screening for stre Vaginal/Rectal No Group B Beta Streptococcus Isolated 3 Days PERFORMED BY: [place] [address] PATHOLOGIST NUCLEAR DESIGN ENGINEER CELESTINO LONG M.D. [facility] Comment on above: Performed By: #### C USTB #### [address] CNNURSEon 03-29-2021 CNNURSE Nurse Visit (REIAV) CASSIDY YOON ([id number]) 1985 F Date Time Provider Department 03/29/21 8:00 AM NURSE CARLITOS [facility] REJ REIAV During your visit today, we recorded the following information about you: Last Period 02/09/21 [facility] 03/29/2021 8:58 PM Signed Cassidy Yoon, a [...] with OB OB Provider: Dr. Salazar in [place] Livia Vogel Called patient to discuss plan. [...] Encounter Status:Closed by QUE ROSAS on 03/29/21 [facility] ([id number]) 1985 F Date Time Provider Department 03/22/21 QUE ROSAS During your visit today, we recorded the following information about you: Reddy Zelaya Pss 03/22/2021 4:17 PM Signed HCG results in. Please follow up, thank you! Roxana iRder RN 03/23/2021 8:08 AM Signed See Televisit [...] Encounter Status:Closed by [facility] RIDER [facility] (REIBD) CASSIDY YOON ([id number]) 1985 F Date Time Provider Department 03/11/21 QUE ROSAS During your visit today, we recorded the following information about you: Marivel Phipps 03/11/2021 1:48 PM Signed Pt. Needs progesterone refill sent to [facility] Please. Thank You! Alexandrea Guzman 03/11/2021 2:21 PM Signed Progesterone reordered to [facility]. Alexandrea Guzman March 11, 2021 2:21 PM [...] Encounter Status:Closed by QUE ROSAS on 03/13/21 [facility] CNCOon 03-01-2021 CNCO Letter Text Normal [facility] CNOVon 03-01-2021 CNOV Office Visit (IVFBE) CASSIDY YOON ([id number]) 1985 F Date Time Provider Department 03/01/21 2:00 PM QUE ROSAS IVFBE During your visit today, we recorded the following information about you: Nuvia Judd RN 03/01/2021 1:48 PM Signed POST EMBRYO TRANSFER INSTRUCTIONS ? You will need to have your blood drawn for Quantitative HCG on 03/15/21 at [place]. You can expect to be called the afternoon of your blood draw with your test results. If for any reason that date or location is changed, please call [phone] to inform us. ? Continue your current [...] If you have any questions, please call [phone]. Que Rosas MD 03/01/2021 2:16 PM Signed WHI CARLITOS TRANSFER PROCEDURE NOTE Date: 03/01/2021 Primary Proceduralist: Que Rosas MD Supervisor Harvesting(s): Not applicable Informed Consent: Indications: Cassidy Yoon, is a 36 year old female here today for Embryo Transfer. [place] Protocol: Sign In: Personnel: Special Equipment: Patient/Surrogate [...] [facility] CNOV Office Visit (ANDBRENDA ) CASSIDY YOON ([id number]) 1985 F Date Time Provider Department 03/01/21 2:00 [facility] During your visit today, we recorded the following information about you: Ramonita Guy 03/01/2021 2:01 PM Signed Embryo Transfer procedure performed. Detailed notes can be found in the paper chart in the On License Of [facility] ? VISCOSITY WORKER Office. Ramonita Guy Referring Provider: SELF [...] Encounter Status:Closed by YVETTE ROMAN on 03/01/21 [facility] CASSIDY YOON ([id number]) 1985 F Date Time Provider Department 02/23/21 7:15 AM NURSE CARLITOS [facility] REJ REIAV During your visit today, we [...] Unable to reach patient by phone, sent Tickade message with instructions. Asked patient to resend [...] 3243 pg/mL Second trimester : 1561 TO 22526 pg/mL Third trimester : 8285 to >48183 pg/mL Reference ranges were not locally established for this patient's age group. The normal values are based on the following source: Estradiol III (package insert v4.0 Greek). [employer] [facility], [place], [place], November 2015. Post-menopausal Estradiol reference range: [...] following source: Progresterone III (package insert v1.0 Greek). [facility], [place], [place], March 2015. Post menopausal Progesterone:<0.5 ng/mL Post menopausal reference range was established locally. [facility] C[facility] ([id number]) 1985 F Date Time Provider Department 02/10/21 [...] Patient scheduled for lining check 02/23/21 in [place]. Kamille Duval RN February 10, 2021 2:27 [...] Encounter Status:Closed by KAMILLE DUVAL on 02/10/21 [facility] Otoniel 01-08-2021 [facility] Telephone (REIBD) CASSIDY YOON ([id number]) 1985 F Date Time Provider Department 01/08/21 [...] checked. Advised new thaw plan sent via Tickade. Her and her partner will have notarized. Advised we can start her FET process after annual exam. Verbalizes understanding. Rebecca Montgomery RN January 11, 2021 10:22 AM Allergies As of Date: 01/08/2021 (No Known Allergies) Date Reviewed: 01/08/2020 Reviewed by: Briseyda AparicioRn) KOSTA Smith - Fully Assessed Reason for Visit: Nurse To Address [3636] Primary Visit Diagnosis:Female infertility [N97.9] Order(s):FOLLICULAR US [facility] [[id number]] Order #: [id number]: 1 ESTRADIOL-17B BLD [SQE2] Order #: [id number] FUTURE PROGESTERONE BLD [SQPROG] Order #: [id number] FUTURE methylPREDNISolone (MEDROL) 16 mg tabletTake 1 [...] Encounter Status:Closed by QUE ROSAS on 01/11/21 [facility] Otoniel 12-28-2020 [facility] Telephone (REIBD) CASSIDY YOON ([id number]) 1985 F Date Time Provider Department 12/28/20 [...] by ANA ROSA LINDSEY RN on 12/28/20 [facility] 12-16-2020 [facility] Telephone (REIBD) CASSIDY YOON ([id number]) 1985 F Date Time Provider Department 12/16/20 LATOYA BYRNES During your visit today, we recorded the following information about you: Angella Weeks [facility] 12/16/2020 10:00 AM Signed Patient would like [...] Body height 161.29 cm Birgit Razo Other [facility] Other 11-23-2022 10:45-0400 Body mass index (BMI) [Ratio] 22.66 kg/m2 Birgit Razo Other [facility] Other 11-23-2022 10:45-0400 Body temperature 97.3 [degF] Birgit Razo Other [facility] Other 11-23-2022 10:45-0400 Body weight 58.97 kg Birgit Razo Other [facility] Other 11-23-2022 10:45-0400 Diastolic blood pressure 68 mm[Hg] Birgit Razo Other [facility] Other 11-23-2022 10:45-0400 SaO2% (BldA) [Mass fraction] 99 % Birgit Razo Other [facility] Other 11-23-2022 10:45-0400 Systolic blood pressure 116 mm[Hg] Birgit Razo Other [facility] Other 03-21-2022 11:15-0400 Body height 161.29 cm Rishabhalberto Manzanaresdiff Other [facility] Other 03-21-2022 11:15-0400 Body mass index (BMI) [Ratio] 26.88 kg/m2 Rishabh Abigail Other [facility] Other 03-21-2022 11:15-0400 Body weight 69.95 kg Rishabh Hayes Other [facility] Other 03-21-2022 11:15-0400 Diastolic blood pressure 77 mm[Hg] Rishabh Hayes Other [facility] Other 03-21-2022 11:15-0400 Respiratory rate 18 /min Rishabh Hayes Other [facility] Other 03-21-2022 11:15-0400 SaO2% (BldA) [Mass fraction] 99 % Rishabh Hayes Other [facility] Other 03-21-2022 11:15-0400 Systolic blood pressure 117 mm[Hg] Rishabh Manzanaresdiff Other [facility] Other Encounters Encounter Date Encounter Type Care Provider Facility Start: 11-23-2022 End: 11-23-2022 ambulatory Birgit Razo Other [facility] Other Start: 11-23-2022 [facility] visit new patient Birgit yancey [facility] Vascular Surgery Start: 03-21-2022 Nutrition therapy Rishabh Hayes [facility] Start: 03-21-2022 End: 03-22-2022 ambulatory Yuri Thomas Gumaro [facility] Other Start: 11-14-2021 End: 11-14-2021 ambulatory Jennifer Sheffieldud Facility:[facility] Start: 11-10-2021 End: 11-12-2021 Evaluation and management of inpatient Marie Nataprawira Facility:[facility] Start: 11-03-2021 End: 11-03-2021 ambulatory Chucho Masoni Facility:[facility] Start: 10-13-2021 End: 10-13-2021 ambulatory Marie Nataprawira Facility:[facility] Procedures Date Procedure Procedure Detail Performing Clinician Start: 11-11-2021 Antibody screen Marie odckery Comment on above: Order Comment: Needs drawn per Dulce Maria in Blood Bank. MLG Result Comment: PERF ORMED BY: [facility] [address] [place] [address] PATHOLOGIST NUCLEAR DESIGN ENGINEER CELESTINO LONG M.D. Immunizations Immunization Date Immunization Notes Care Provider Jerome quintero 03-09-2017 tetanus toxoid, redu tutu diphtheria toxoid, and acellular pertussis vaccine, adsorbed [facility] Payers Date Payer Category Payer Self-pay [id number] 2021 Unknown [id number] 2. [id number] 1985 Unknown [id number] 2.16.84 [id number] Unknown [id number] 2.16.8 [id number] Unknown [id number] 2.16.8 [id number] Unknown [id number] 2.16.8 [id number] Unknown [id number] 2.16.8 [id number] Unknown [id number] 2.16.8 [id number] Social History Date Type Detail Facility Unknown if ever smoked [facility] Other Sex Assigned At Sex Assigned At Bir th [facility] Other Start: 1985 Sex Assigned At Female F [facility] Clinical Notes 01-08-2021 to 11-23-2022 Note [...] the overall management of her venous disease. [facility] Other 10-03-2022 NotePatient Education Materials Follows: Otitis [...] Follow these instructions at home: ? Take meyg-nva-pshipub and prescription medicines only as told by [...] provider. Document Revised: 09/13/2021 Document Reviewed: 09/13/2021 [employer] Patient Education ? 2021 [employer] Infectious Disease Sinusitis, Adult Sinusitis is [...] a virus. Sinusitis c (more content not included)...[id number] Evaluation note* Encounter Date Diagnosis Assessment Notes Treatment Notes Treatment Clinical Notes Mar, Abnormal weight gain (ICD-10 - R63.5) Mar, Overweight (BMI 25.0-29.9) (ICD-10 - E66.3) Mar, Depression, unspecified depression type (ICD-10 - F32.9) Mar, Migraine (ICD-10 - G43.909) [facility] Other 10-11-2021 NoteHNO ID: [id number] Author: Que Rosas MD Service: ? Author Type: Physician Type: Progress Notes Filed: 03/29/2021 8:58 PM Note Text: TRANSVAGINAL OB ULTRASONOGRAM Intrauterine di/di twins consistent with clinical dates but only one with cardiac activity Ovaries - normal No free fluid See imaging tab PLAN - refer to OB Que Rosas, [facility]10-11-2021 NoteHNO ID: [id number] Author: Livia Vogel Service: ? Author Type: [...] with OB OB Provider: Dr. Salazar in [place] Livia Vogel Called patient to discuss plan. Patient will move on to OB. Livia Vogel March 29, 2021 1:10 [facility]10-05-2021 NoteHNO ID: [id number] Author: Roxana Rider RN Service: ? Author Type: Registered Nurse Type: Progress Notes Filed: 03/23/2021 1:31 PM Note Text: Received faxed results today from 03/22/21. Appropriate rise in HCG level. Next step for pt is to have OB ultrasound 03/29/21, order in place. Explara message sent. Called pt with HCG results. Pt denies any bleeding or pain, no OB complaints. Return 03/29/21 at 0800 for ultrasound, sent to schedulers. Reminded pt to continue taking estrace and progesterone daily as directed until instructed to stop. Pt verbalizes understanding. Roxana Rider RN March 23, 2021 8:06 [facility]10-04-2021 NoteHNO ID: [id number] Author: Roxana Rider RN Service: ? Author Type: Registered Nurse Type: Progress Notes Filed: 03/31/2021 9:50 AM Note Text: Have not received HCG levels yet from outside lab. Called pt to ensure she had test completed. Pt states she had level drawn in [place] and instructed them to fax over results. Will follow. Informed pt if dont received by the end of the day, will follow tomorrow. Pt understands. Roxana Rider RN March 22, 2021 2:30 [facility]09-27-2021 NoteHNO ID: [id number] Author: Roxana Rider RN Service: ? Author [...] Roxana Rider RN March 15, 2021 3:20 [facility]09-13-2021 NoteHNO ID: [id number] Author: Que Rosas MD Service: ? Author Type: Physician Type: Procedures Filed: 03/01/2021 2:16 PM Note Text: WHI CARLITOS TRANSFER PROCEDURE NOTE Date: 03/01/2021 Primary Proceduralist: Que Rosas MD Supervisor Harvesting(s): Not applicable Informed Consent: Indications: Cassidy Yoon, is a 36 year old female here today for Embryo Transfer. [place] Protocol: Sign In: Personnel: Special Equipment: Patient/Surrogate [...] Yoon DATE: March 01, 2021 TIME: 2:16 [facility]09-13-2021 NoteHNO ID: [id number] Author: Ramonita Guy Service: ? Author Type: Technologist Type: Progress Notes Filed: 03/01/2021 2:01 PM Note Text: Embryo Transfer procedure performed. Detailed notes can be found in the paper chart in the On License Of [facility] ? VISCOSITY WORKER Office. Yvette Roman, [facility]09-07-2021 NoteHNO ID: [id number] Author: Livia Vogel Service: ? Author Type: [...] Unable to reach patient by phone, sent Tickade message with instructions. Asked patient to resend thaw plan and will call back after 1pm. Livia Gellersh February 23, 2021 12:52 [facility]07-23-2021 NoteHNO ID: [id number] Author: Que Rosas MD Service: ? Author [...] which included preparing to see the patient, nzuq-te-nzaa patient care, completing clinical documentation, obtaining and/or reviewing separately obtained history and counseling and educating the patient/family/caregiver. Que Rosas M.D.[facility] noteNo assessment information availableWayne Healthcare Main Campus Work Phone: Hisqtlh general Narrative - Reported* Type Description Date Medical History Migraines Medical History PMDD (premenstrual dysphoric dis order) Medical History depression Surgical History colonoscopy Surgical History [place] teeth 2012 Surgical History D+C ectopic Hospitalization History Childbirth 2017 [facility] Other Reason for visit Narrative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Nort Mog[employer] Other Summary Purpose Family History Relationship Condition [...] DATE CREATED AUTHOR AUTHOR'S ORGANIZ ATION 09/21/2022 [facility] REASON FOR VISIT (unrecogniz ed section [...] BE BASED ON THE PRIMARY CLINICAL RECORDS. [employer] [facility]. provides no warranty or guarantee of the accuracy or completeness of information in this document.
== END 2023-10-03 09:39 | disposition home or self-care (01) ==
LOC: VC 09:38
PROVIDERS: PCP Radiology Diagnostic Radiology; Visit Provider Radiology Diagnostic Radiology
DX: I83.813 Varicose veins of bilateral lower extremities with pain (principal)
CPT/HCPCS: 36478

== ENCOUNTER 2023-10-11 14:41 | Outpatient (OUT) | payer OTHER, SELFPAY ==
--- NOTE | 2023-10-11 14:45 | VEIN_ITS ---
Patient Name: LONG YOON MR#: [id number] : 1985 Exam Date: 10/11/2023 Ordering Doctor: DR LOLA MARINELLI M.D. RADIOLOGY REPORT PROCEDURE: VC EXT VENOUS LT LIMITED COMPARISON: None. INDICATIONS: I80.02 Phlebitis of superficial veins of left lower extremity TECHNIQUE: Lower extremity jean scale and Duplex Doppler evaluation of the deep venous system from the inguinal ligament through the calf veins. FINDINGS: REGION: Left lower extremity. THROMBI: Negative for DVT. Heat induced thrombus in left GSV propagated 5.5 mm into the CFV. COMPRESSIBILITY: Non-compressible segments corresponding to thrombus FLOW: Areas of no flow corresponding to thrombus OTHER: CONCLUSION: 1. Successful post ablation occlusion of left great saphenous vein. 2. Mobile thrombus extending into the saphenofemoral junction. Dictated by: Gee Sparks M.D. on 10/11/2023 at 15:24 Approved by: Gee Sparks M.D. on 10/11/2023 at 15:25
--- NOTE | 2023-10-11 14:45 | VEIN_ITS ---
Patient Name: LONG YOON MR#: [id number] : 1985 Exam Date: 10/11/2023 Ordering Doctor: DR LOLA MARINELLI M.D. RADIOLOGY REPORT PROCEDURE: [facility] LMTD VEIN CENTER - OFFICE VISIT FOLLOW UP [facility] PROGRESS NOTES: The patient reports improvement in leg symptoms. There has been interval reduction in varicosities. The patient has followed our recommendations to walk 20-30 minutes once or twice per day since the procedure. Physical exam demonstrates decrease in varicosities of the leg. Persistent varicosities are identified along the left leg. Review of the ultrasound performed the same day demonstrates occlusive thrombus extending throughout the treated vein(s), see separate report, consistent with a successful ablation. Thrombus extends to the saphenofemoral junction with short mobile segment extending just into the femoral vein. The patient expressed a desire to proceed with treatment of remaining incompetent varicosities. The patient was informed that treatment was a process and would require several procedures/sessions. [facility] 1. Successful ablation of the left great saphenous vein(s). 2. Persistent varicose veins and lower extremity symptoms. 3. Thrombus within the left great saphenous vein extending to the saphenofemoral junction and approximately 5 mm into the femoral vein PLAN: 1. Patient will be placed on blood thinner Xarelto 15 mg 2 times per day for 21 days. Follow-up ultrasound in 2 weeks. 2. Endovenous laser ablation of left small saphenous vein to be scheduled in approximately 3 weeks. Nurse notes, history and physical were reviewed and confirmed, see attached forms. The nurse was present throughout the physical exam and consultation Dictated by: Gee Sparks M.D. on 10/11/2023 at 15:25 Approved by: Gee Sparks M.D. on 10/11/2023 at 15:33
== END 2023-10-11 14:42 | disposition home or self-care (01) ==
LOC: VC 14:43
PROVIDERS: PCP Radiology Diagnostic Radiology; Visit Provider Radiology Diagnostic Radiology
DX: I80.02 Phlebitis and thrombophlebitis of superficial vessels of left lower extremity (principal)
CPT/HCPCS: 93971; G0463

== ENCOUNTER 2023-10-26 14:10 | Outpatient (OUT) | payer OTHER, SELFPAY ==
--- NOTE | 2023-10-26 14:12 | VEIN_ITS ---
Patient Name: LONG YOON MR#: [id number] : 1985 Exam Date: 10/26/2023 Ordering Doctor: DR LOLA MARINELLI M.D. RADIOLOGY REPORT PROCEDURE: FACILITY EST LMTD VEIN CENTER - OFFICE VISIT FOLLOW UP COMPARISON: [facility] EST TD, 10/11/2023. PROGRESS NOTES: Review of the ultrasound performed the same day demonstrates occlusive thrombus extending throughout the left great saphenous vein, see separate report, consistent with a successful ablation. Interval retraction of thrombus at the saphenofemoral junction which is now in appropriate distance from the junction. The patient expressed a desire to proceed with treatment of remaining varicosities. The patient was informed that treatment was a process and would require several procedures/sessions. VEIN/ Facility EST LMTD IMPRESSION: 1. Induced thrombus within left great saphenous vein is now in appropriate distance from the saphenofemoral junction. 2. Persistent varicose veins and lower extremity symptoms. PLAN: 1. Discontinuation of Lovenox. 2. Endovenous laser ablation of left small saphenous and anterior accessory saphenous veins. 3. Microfoam chemical ablation of branch saphenous varicosities followed by sclerotherapy of spider veins. Nurse notes, history and physical were reviewed and confirmed, see attached forms. The nurse was present throughout the physical exam and consultation Dictated by: Gee Sparks M.D. on 10/26/2023 at 16:07 Approved by: Gee Sparks M.D. on 10/26/2023 at 16:16
--- NOTE | 2023-10-26 14:12 | VEIN_ITS ---
Patient Name: LONG YOON MR#: [id number] : 1985 Exam Date: 10/26/2023 Ordering Doctor: DR LOLA MARINELLI M.D. RADIOLOGY REPORT PROCEDURE: VC EXT VENOUS LT LIMITED COMPARISON: VC EXT VENOUS LT LIMITED, 10/11/2023. INDICATIONS: Phlebitis of superficial veins of lt lower extremity I80.02 TECHNIQUE: Lower extremity jean scale and Duplex Doppler evaluation of the deep venous system from the inguinal ligament through the calf veins. FINDINGS: REGION: Left lower extremity. THROMBI: Negative for DVT. Heat induced thrombus visualized 1.7cm from the SFJ and is stable. COMPRESSIBILITY: Non-compressible segments corresponding to thrombus FLOW: Areas of no flow corresponding to thrombus OTHER: CONCLUSION: 1. Interval retraction of induced thrombus within left great saphenous vein at the saphenofemoral junction; now appearing appropriate. Dictated by: Gee Sparks M.D. on 10/26/2023 at 16:06 Approved by: Gee Sparks M.D. on 10/26/2023 at 16:06
== END 2023-10-26 14:11 | disposition home or self-care (01) ==
LOC: VC 14:10
PROVIDERS: PCP Radiology Diagnostic Radiology; Visit Provider Radiology Diagnostic Radiology
DX: I80.02 Phlebitis and thrombophlebitis of superficial vessels of left lower extremity (principal)
CPT/HCPCS: 93971; G0463

== ENCOUNTER 2023-11-27 13:02 | Outpatient (OUT) | payer OTHER, SELFPAY ==
[2023-11-27] MEDS: LIDOCAINE HCL 1% 100 MG/10 ML MDV INJ (13:02)
[2023-11-27] MEDS: 0.9 % SODIUM CHLORIDE 500 ML, LIDOCAINE HCL 20 ML, SODIUM BICARBONATE 10 MEQ INJ (13:03)
--- NOTE | 2023-11-27 13:05 | VEIN_ITS ---
The [address] [address] Patient Name: LONG YOON MRN: [id number] date: 1985 Sex: F Assigned Patient Location: Current Patient Location: Accession/Order Number: [id number] Exam Date: 11/27/2023 13:06 Report Date: 11/27/2023 14:57 At the request of: LOLA MARINELLI Procedure: VC Endovenous Ablation 1VeinLT EXAMINATION: VC Endovenous Ablation 1Vein left small saphenous veins HISTORY: I83.813 Bilateral leg painful varicose veins COMPARISON: No relevant comparison available. TECHNIQUE: The risks and benefits of the procedure had been previously discussed, and were rediscussed at length. Informed written consent was obtained. Summer Reyna and Deny Dejesus assisted. Time out procedure was performed. The left lower extremity was prepared and draped in the usual sterile fashion . Duplex ultrasound probe was draped in a sterile cover, sterile transmission gel was used. Venous mapping was performed with the areas of dilation and large tributaries marked. There were 2 separate left small saphenous veins 1 was a thigh extension, a second extended from the popliteal vein with a short straight segment but a long associated saphenous tributary/varicose vein. Small saphenous vein 1: Length: 4 cm 50 cc of tumescent fluid 242 Joules of energy 30 seconds Laser start time: 1352 Laser stop time: 1352 Small saphenous vein 2: Length: 20 cm 125 cc of tumescent fluid 883 Joules of energy 110 seconds Laser start time: 1405 Laser stop time: 1407 The total length was 4 cm for the small saphenous vein extending from the popliteal and 20 cm for the thigh extension small saphenous vein . A 30 gauge needle and 1% buffered lidocaine was used to anesthetize the entry site. A 4 mm incision was made with a scalpel and the saphenous vein was entered percutaneously under direct ultrasound guidance with a micropuncture set, a single stick was successful in gaining access for both sites. A micro-guide wire was inserted and the needle removed. A micro-set including a dilator was inserted over the microwire and the needle and dilator were removed. A 0.018 guide wire was inserted through the micro-set and threaded through the saphenous vein . The dilator was removed and an introducer sheath was inserted over the wire. The dilator and wire were removed and the 600 micron fiber was introduced and placed . Final position of the fiber was determined by ultrasound guidance and duplex imaging. A duplex ultrasound revealed compressibility and flow at the saphenofemoral junction immediately after the procedure. Hemostasis at the access site was achieved. The skin incision of the saphenous vein was closed with a 4 x 4. A compression stocking was applied. Postop instructions were given. A follow up appointment was recommended and scheduled. The patient tolerated the procedure well and was discharged in good condition . VEIN/VC Endovenous Ablation 1VeinLT IMPRESSION: Technically successful endovenous laser ablation of 2 separate right small saphenous veins Electronically authenticated by: LOLA MARINELLI Date: 11/27/2023 14:57
== END 2023-11-27 13:03 | disposition home or self-care (01) ==
LOC: VC 13:03
PROVIDERS: PCP Radiology Diagnostic Radiology; Visit Provider Radiology Diagnostic Radiology
DX: I83.813 Varicose veins of bilateral lower extremities with pain (principal)
CPT/HCPCS: 36478

== ENCOUNTER 2023-12-04 14:00 | Outpatient (OUT) | payer OTHER, SELFPAY ==
--- NOTE | 2023-12-04 14:02 | VEIN_ITS ---
Patient Name: LONG YOON MR#: [id number] : 1985 Exam Date: 12/04/2023 Ordering Doctor: DR LOLA MARINELLI M.D. RADIOLOGY REPORT PROCEDURE: VC EXT VENOUS LT LIMITED COMPARISON: VC EXT VENOUS LT LIMITED, 10/26/2023. INDICATIONS: I80.02 Phlebitis of superficial veins of left lower extremity TECHNIQUE: Lower extremity jean scale and Duplex Doppler evaluation of the deep venous system from the inguinal ligament through the calf veins. FINDINGS: REGION: Left lower extremity. THROMBI: Negative for DVT. Heat induced thrombus in left SSV 1.6cm from SPJ and extends to mid calf. Partial compression of accessory SSV lateral calf. COMPRESSIBILITY: Non-compressible segments corresponding to thrombus FLOW: Areas of no flow corresponding to thrombus OTHER: CONCLUSION: 1. Successful post ablation occlusion of left small saphenous vein. An accessory small saphenous vein is partially occluded. Dictated by: Gee Sparks M.D. on 12/04/2023 at 15:09 Approved by: Gee Sparks M.D. on 12/04/2023 at 15:10
--- NOTE | 2023-12-04 14:02 | VEIN_ITS ---
Patient Name: LONG YOON MR#: [id number] : 1985 Exam Date: 12/04/2023 Ordering Doctor: DR LOLA MARINELLI M.D. RADIOLOGY REPORT PROCEDURE: [facility] - OFFICE VISIT FOLLOW UP COMPARISON: [facility], 10/26/2023. PROGRESS NOTES: The patient reports improvement in leg symptoms. There has been interval reduction in varicosities. The patient has followed our recommendations to walk 20-30 minutes once or twice per day since the procedure. Physical exam demonstrates decrease in varicosities of the leg. Persistent varicose are identified along the legs bilaterally. Review of the ultrasound performed the same day demonstrates occlusive thrombus extending throughout the treated vein(s), see separate report, consistent with a successful ablation. No thrombus extending into or beyond the saphenofemoral junction. The patient expressed a desire to proceed with treatment of incompetent branch saphenous varicosities. The patient was informed that treatment was a process and would require 2-3 procedures/sessions. [facility]: 1. Successful ablation of the left small saphenous vein(s). 2. Persistent varicose veins and lower extremity symptoms. PLAN: Microfoam chemical ablation of right leg incompetent branch saphenous varicosities. Nurse notes, history and physical were reviewed and confirmed, see attached forms. The nurse was present throughout the physical exam and consultation Dictated by: Gee Sparks M.D. on 12/04/2023 at 15:11 Approved by: Gee Sparks M.D. on 12/04/2023 at 15:13
== END 2023-12-04 14:01 | disposition home or self-care (01) ==
LOC: VC 14:00
PROVIDERS: PCP Radiology Diagnostic Radiology; Visit Provider Radiology Diagnostic Radiology
DX: I80.02 Phlebitis and thrombophlebitis of superficial vessels of left lower extremity (principal)
CPT/HCPCS: 93971; G0463

== ENCOUNTER 2023-12-06 14:58 | Outpatient (OUT) | payer OTHER, SELFPAY ==
--- NOTE | 2023-12-06 15:00 | VEIN_ITS ---
The [address] [address] Patient Name: LONG YOON MRN: [id number] date: 1985 Sex: F Assigned Patient Location: Current Patient Location: Accession/Order Number: [id number] Exam Date: 12/06/2023 15:00 Report Date: 12/06/2023 16:31 At the request of: LOLA MARINELLI Procedure: VC INJ Foam Sclerosant WUS [employer]ED [employer] REPA[employer]ER PROCEDURE: VC INJ Foam Sclerosant WUS [employer]URNED [employer] REPAIRER HISTORY: Pain due to varicose veins of bilateral legs I83.813 Pre-operative Diagnosis: CEAP class C3 venous insufficiency with pain, tenderness, edema and incompetent branch saphenous vein(s), chronic venous insufficiency right leg secondary to venous incompetence Post-operative Diagnosis: CEAP class C3 venous insufficiency with pain, tenderness, edema and incompetent branch saphenous vein(s), chronic venous insufficiency right leg secondary to venous incompetence Procedure Performed: 1. Ultrasound-guided microfoam chemical ablation with Varithenaregistered 2. Intraoperative ultrasound guidance Physician: Gee Sparks M.D. Anesthesia: None Indications for Procedure: 38 year old female. Symptoms including dilated bulging veins, lower extremity pain and throbbing for many years despite conservative medical therapy including medical compression stockings, exercise and analgesics. Prior procedures include endovenous laser ablation. Multiple incompetent varicosities of the right leg. Duplex scan showed reflux and enlarged diameters up to 4 mm. The patient underwent informed consent including management options where the complications of infection, bleeding, pain, and skin injury were discussed. Particular attention was spent discussing thrombus extension and deep vein thrombosis as well as the possibility of pulmonary embolus and treatment with oral or injectable blood thinners. Procedure: The patient walked to the procedure room. All applicable staff donned appropriate apparel. A procedure timeout was performed to confirm correct patient, correct extremity, correct procedure, and correct room set-up including presence of all applicable supplies, devices, and drugs. A duplex ultrasound, performed by myself confirmed the location and incompetence of branch saphenous varicosities and their course was marked on the skin together with the dilated tributaries. The extent of treatment of the vein and the associated varicosities was determined through ultrasound mapping. The skin was prepped and then punctured with a butterfly needle and advanced under ultrasound guidance. The Varithenaregistered canister was activated and the canister was primed and purged as required in the instructions for use. Varithenaregistered was drawn into a sterile syringe. Varithenaregistered was slowly administered at 0.5-1.0 cc/second with close observation by ultrasound of its course in the vessels. Total volume utilized was: 5 mL into a 4 mm varicosity mid medial lower right leg. Following administration of Varithenaregistered the leg was elevated and the patient was asked to repeatedly dorsiflex the ankle to limit flow of Varithenaregistered into perforating veins. Once appropriate spasm had been confirmed in the treated veins, the vascular catheter was removed from the leg and light pressure was applied over the puncture site for hemostasis. The common femoral and deep superficial veins were then evaluated for flow and compressibility prior to dressing placement. The lower extremity was kept elevated at 45 degrees above the horizontal and cording material was applied over the saphenous segments and tributaries to allow for eccentric compression over the target vessels including the targeted saphenous vein(s). A multilayer dressing was applied consisting of foam pads, coban and thigh-high 20-30 mm Hg compression elastic support hose were placed on the patient. The leg was lowered only after compression had been applied and the patient was immediately ambulatory. The patient ambulated 10 minutes under supervision and was without apparent concerns at time of release. Post-care instructions include advising patient to keep post-treatment bandages in place and dry for 48 hours, avoid extended periods of inactivity, avoid heavy exercise for one week, wear compression stockings on the treated leg continuously for two weeks, to walk daily for 10 minutes over the next month. The patient was instructed to take an anti-inflammatory medicine as needed and to follow up for color duplex scan of the Saphenous veins, the treated branch saphenous varicosities, the adjacent deep veins, and additional treatment within 7 days. PERSONNEL: Deny Dejesus RN and Kristen Reyna RDMS Electronically authenticated by: GEE SPARKS Date: 12/06/2023 16:31
--- OUTSIDE RECORDS SUMMARY | 2023-12-06 15:05 | XMS_ITS | CCD ---
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 [facility] Comment on above: Order Comment: Name Collection Type:: Clean-Voided Midstream Performed By: #### O BUDS, UA #### [place] [address] [place] Strep B Cultureon 10-13-2021 Strep B Culture Reason for Exam 35 weeks gestation of ; screening for stre Vaginal/Rectal No Group B Beta Streptococcus Isolated 3 Days PERFORMED BY: [place] [address] PATHOLOGIST PASTA PRESS OPERATOR CELESTINO LONG M.D. [facility] Comment on above: Performed By: #### C USTB #### [address] [place] [address] [facility] Vital Signs Date Time Vital Sign Value Performing Clinician Facility 11-23-2022 10:45-0400 Body height 161.29 cm Birgit Razo Other [facility] Other 11-23-2022 10:45-0400 Body mass index (BMI) [Ratio] 22.66 kg/m2 Birgit Razo Other [facility] Other 11-23-2022 10:45-0400 Body temperature 97.3 [degF] Birgit Razo Other [facility] Other 11-23-2022 10:45-0400 Body weight 58.97 kg Birgit Razo Other [facility] Other 11-23-2022 10:45-0400 Diastolic blood pressure 68 mm[Hg] Birgit Razo Other [facility] Other 11-23-2022 10:45-0400 SaO2% (BldA) [Mass fraction] 99 % Birgit Razo Other [facility] Other 11-23-2022 10:45-0400 Systolic blood pressure 116 mm[Hg] Birgit Razo Other [facility] Other 03-21-2022 11:15-0400 Body height 161.29 cm Rishabh Hayes Other [facility] Other 03-21-2022 11:15-0400 Body mass index (BMI) [Ratio] 26.88 kg/m2 Rishabh Hayes Other [facility] Other 03-21-2022 11:15-0400 Body weight 69.95 kg Rishabhalberto Manzanaresdiff Other [facility] Other 03-21-2022 11:15-0400 Diastolic blood pressure 77 mm[Hg] Rishabhalberto Manzanaresdiff Other [facility] Other 03-21-2022 11:15-0400 Respiratory rate 18 /min Rishabh Hayes Other [facility] Other 03-21-2022 11:15-0400 SaO2% (BldA) [Mass fraction] 99 % Rishabh Hayes Other [facility] Other 03-21-2022 11:15-0400 Systolic blood pressure 117 mm[Hg] Rishabh Hayes Other [facility] Other Encounters Encounter Date Encounter Type Care Provider Facility Start: 12-04-2023 End: 12-04-2023 Emergency department patient visit [facility] Sheldon LEIGH ANN Facility:[facility] Start: 11-23-2022 End: 11-23-2022 ambulatory Birgit Razo Other [facility] Other Start: 11-23-2022 FQ visit new patient Birgit Del Angel naye [facility] Vascular Surgery Start: 03-21-2022 End: 03-22-2022 ambulatory Rishabh Hayes [email or web address] Other Start: 03-21-2022 Nutrition therapy Rishabh Hayes [facility] Start: 11-14-2021 End: 11-14-2021 ambulatory Jennifer Roberson Facility:[facility] Start: 11-10-2021 End: 11-12-2021 Evaluation and management of inpatient Marie Camaraawira Facility:[facility] Start: 11-03-2021 End: 11-03-2021 ambulatory Chucho Barroso Facility:[facility] Start: 10-13-2021 End: 10-13-2021 ambulatory Marie Peoples Facility:[facility] Start: 03-29-2021 End: 03-29-2021 ambulatory CANDIDO MANE [facility] [place] Procedures Date Procedure Procedure Detail Performing Clinician Start: 11-11-2021 Antibody screen Marie Galeana carmentess Comment on above: Order Comment: Needs drawn per Dulce Maria in Blood Bank. [facility] Result Comment: PERF ORMED BY: [facility] [address] [place] [address] PATHOLOGIST PASTA PRESS OPERATOR CELSETINO LONG M.D. Immunizations Immunization Date Immunization Notes Care Provider Jerome quintero 03-09-2017 tetanus toxoid, redu tutu diphtheria toxoid, and acellular pertussis vaccine, adsorbed [facility] Payers Date Payer Category Payer Self-pay [id number] 2019 Unknown [id number] 2. [id number] 1985 Unknown [id number] 2.16.8 [id number] Unknown [id number] 2.16.8 [id number] Unknown [id number] 2.16.8 [id number] Unknown [id number] 2.16.8 [id number] Unknown [id number] 2.16.8 [id number] Unknown [id number] 2.16.8 [id number] Social History Date Type Detail Facility Unknown if ever smoked [facility] Other Sex Assigned At Sex Assigned At Bir th [facility] Other Start: 1985 Sex Assigned At Female F [facility] Medication management note 12-05-2023 Note Date & Type Note Facility 12-05-2023 Note [id number] F [facility] Clinical Note 12-04-2023 Note Date & Type Note Facility 12-04-2023 Note Education Materials Dermatology Burn Care, Adult A burn is an injury to the skin or the tissues under the skin. There are three types of charles: ? First degree. These charles may cause the skin to be red and a bit swollen. ? Second degree. These charles are very painful and cause the skin to be very red. The skin may also swell, leak fluid, look shiny, and start to have blisters. ? Third degree. These charles cause lasting damage. They turn the skin white or black and make it look charred, dry, and leathery. Treatment for your burn will depend on the type of burn you have. Taking good care of your burn can help to prevent pain and infection. It can also help the burn heal quickly. How to care for a first-degree burn Right after a burn: ? Rinse or soak the burn under cool water for 5 minutes or more. Do not put ice on your burn. That can cause more damage. ? Put a cool, clean, wet cloth on your burn. ? Put lotion or gel with aloe vera on your burn. Caring for the burn Clean and care for your burn. Your doctor may tell you: ? To clean the burn using soap and water. ? To pat the burn dry using a clean cloth. Do not rub or scrub the burn. ? To put lotion or gel with aloe vera on your burn. How to care for a second-degree burn Right after a burn: ? Rinse or soak the burn under cool water. Do this for 5 to 10 minutes. Do not put ice on your burn. This can cause more damage. ? Remove any jewelry near the burned area. ? Cover the burn with a clean cloth. Caring for the burn ? Raise (elevate) the burned area above the level of your heart while sitting or lying down. ? Clean and care for your burn. Your doctor may tell you: ? To clean or rinse your burn. ? To put a cream or ointment on the burn. ? To place a germ-free (sterile) dressing over the burn. A dressing is a material that is placed on a burn to help it heal. How to care for a third-degree burn Right after a burn: ? Cover the burn with a clean, dry cloth. ? Seek treatment right away if you have this kind of burn. You may: ? Need to stay in the hospital. ? Have surgery to remove burned tissue. ? Have surgery to put new skin on the burned area. ? Be given fluids through an IV tube. Caring for the burn Clean and care for your burn. Your doctor may tell you: ? To clean or rinse your burn. ? To put a cream or ointment on the burn. ? To put a sterile dressing in the burn. This is called packing. ? To place a sterile dressing over the burn. Other things to do ? Raise the burned area above the level of your heart while sitting or lying down. ? Wear splints or immobilizers if told by your doctor. ? Rest as told by your doctor. Do not do sports or other activities until your doctor approves. How to prevent infection when caring for a burn ? Take these steps to prevent infection: ? Wash your hands with soap and water for at least 20 seconds before and after caring for your burn. If you cannot use soap and water, use hand interactive media designer. ? Wear clean or sterile gloves as told by your doctor. ? Do not put butter, oil, toothpaste, or other home remedies on the burn. ? Do not scratch or pick at the burn. ? Do not break any blisters. ? Do not peel the skin. ? Do not rub your burn, even when you are cleaning it. ? Check your burn every day for these signs of infection: ? More redness, swelling, or pain. ? Warmth. ? Pus or a bad smell. ? Red streaks around the burn. Follow these instructions at home Medicines ? Take [id number] and prescription medicines only as told by your doctor. ? If you were prescribed an antibiotic medicine, use it as told by your doctor. Do not stop using the antibiotic even if your condition gets better. ? Your doctor may ask you to take medicine for pain before you change your dressing. General instructions ? Protect your burn from the sun. ? Drink enough fluid to keep your pee (urine) pale yellow. ? Do not use any products that contain nicotine or tobacco, such as cigarettes, e-cigarettes, and chewing tobacco. These can delay healing. If you need help quitting, ask your doctor. ? Keep all follow-up visits as told by your doctor. This is important. Contact a doctor if: ? Your condition does not get better. ? Your condition gets worse. ? You have a fever or chills. ? Your burn feels warm to the touch. ? You have more redness, swelling, or pain on your burn. ? Your burn looks different or starts to have black or red spots on it. ? Your pain does not get better with medicine. Get help right away if: ? You have more fluid, blood, or pus coming from your burn. ? You have red streaks near the burn. ? You have very bad pain. Summary ? There are three types of charles. They are first degree, second degree, and third degree. Of these, a third-degree burn is most serious. This must be treated (more content not included)... [facility] Evaluation note 11-23-2022 Note Date & Type Note Facility [...] the overall management of her venous disease. [facility] Other Evaluation note 03-21-2022 Note Date & Type Note Facility 03-21-2022 Evaluation note Encounter Date Diagnosis Assessment Notes Mar, Abnormal weight gain (ICD-10 - R63.5) Mar, Overweight (BMI 25.0-29.9) (ICD-10 - E66.3) 03 Oct, 2022 Depression, unspecified depression type (ICD-10 - F32.9) 03 Mar, 2022 Migraine (ICD-10 - G43.909) [facility] Other Evaluation note Note Date & Type Note Facility Evaluation note No assessment information availa ble [facility] Work Phone: History general Narrative - Reported Note Date & Type Note Facility History general Narrative - Reported Type Medical History Migraines Medical History PMDD (premenstrual dysphoric dis order) Medical History depression Surgical History colonoscopy Surgical History [place] teeth 2012 Surgical History D+C ectopic Hospitalization History Childbirth 2017 [facility] Other Reason for visit Narrative Note Date & Type Note Facility Reason for visit Narrative 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 [facility] Other Summary Purpose Family History No Family History Records Found Advance Directives No Advanced Directives Records FoundNo Advanced Directives Records FoundNo Advanced Directives Records Found Additional Source Comments REASON FOR VISIT (unrecogniz ed section and content) Initial WMN Goals (unrecognized section and content) Goals may be documented in a n alternate section INFORMATION SOURCE (unrecogn ized section and content) DATE CREATED AUTHOR 09/21/2022 [facility] DATE CREATED AUTHOR AUTHOR'S ORGANIZ ATION 11/19/2023 [facility] DATE CREATED AUTHOR AUTHOR'S ORGANIZ ATION 12/06/2023 [facility] FOR RECORDS PERTAINING TO PATIENTS WHO ARE [...] BE BASED ON THE PRIMARY CLINICAL RECORDS. [employer] provides no warranty or guarantee of the accuracy or completeness of information in this document.
== END 2023-12-06 14:59 | disposition home or self-care (01) ==
LOC: VC 14:58
PROVIDERS: PCP Radiology Diagnostic Radiology; Visit Provider Radiology Diagnostic Radiology
DX: I83.813 Varicose veins of bilateral lower extremities with pain (principal)
CPT/HCPCS: 36466

== ENCOUNTER 2023-12-18 15:04 | Outpatient (OUT) | payer OTHER, SELFPAY ==
--- NOTE | 2023-12-18 15:08 | VEIN_ITS ---
Patient Name: LONG YOON MR#: [id number] : 1985 Exam Date: 12/18/2023 Ordering Doctor: DR LOLA MARINELLI M.D. RADIOLOGY REPORT PROCEDURE: VC EXT VENOUS RT LMTD COMPARISON: VC EXT VENOUS RT LMTD, 09/06/2023. INDICATIONS: I80.01 Phlebitis of superficial veins of rt lower extremity TECHNIQUE: Lower extremity jean scale and Duplex Doppler evaluation of the deep venous system from the inguinal ligament through the calf veins. FINDINGS: REGION: Right lower extremity. THROMBI: Positive for DVT. Chemically induced thrombus in multiple varicose veins medial right leg. Thrombus extends into a 2.8 cm segment of right PTV distal. COMPRESSIBILITY: Non-compressible segments corresponding to thrombus FLOW: Areas of no flow corresponding to thrombus OTHER: No significant varicose veins remain. CONCLUSION: 1. Successful post ablation occlusion of right leg treated branch saphenous varicosities. Dictated by: Gee Sparks M.D. on 12/19/2023 at 08:27 Approved by: Gee Sparks M.D. on 12/19/2023 at 08:28
--- NOTE | 2023-12-18 15:08 | VEIN_ITS ---
Patient Name: LONG YOON MR#: [id number] : 1985 Exam Date: 12/18/2023 Ordering Doctor: DR LOLA MARINELLI M.D. RADIOLOGY REPORT PROCEDURE: [facility] EST LMTD [facility] - OFFICE VISIT FOLLOW UP [facility] PROGRESS NOTES: The patient reports improvement in leg symptoms. There has been interval reduction in varicosities. The patient has followed our recommendations to walk 20-30 minutes once or twice per day since the procedure. Physical exam demonstrates decrease in varicosities of the leg. Persistent varicosities are identified along the left leg. Review of the ultrasound performed the same day demonstrates occlusive thrombus extending throughout the treated vein(s), see separate report, consistent with a successful ablation. No thrombus extending into or beyond the saphenofemoral junction. The patient expressed a desire to proceed with treatment of remaining incompetent varicosities. The patient was informed that treatment was a process and would require 1-2 procedures/sessions. [facility]: 1. Successful ablation of the right leg treated branch saphenous vein(s). No remaining right leg varicosities in need of treatment. 2. Persistent left leg varicose veins and lower extremity symptoms. PLAN: Microfoam chemical ablation of left leg incompetent branch saphenous varicosities. Nurse notes, history and physical were reviewed and confirmed, see attached forms. The nurse was present throughout the physical exam and consultation Dictated by: Gee Sparks M.D. on 12/19/2023 at 08:28 Approved by: Gee Sparks M.D. on 12/19/2023 at 08:29
--- OUTSIDE RECORDS SUMMARY | 2023-12-18 15:22 | XMS_ITS | CCD ---
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 BUDS, UA #### [address] Leukocyte esterase Test strip Ql (U) Negative Normal Negative [facility] Comment on above: Order Comment: Name Collection Type:: Clean-Voided Midstream Performed By: #### O BUDS, UA #### [address] Nitrite,Urine Negative Normal Negative [facility] Comment on above: Order Comment: Name Collection Type:: Clean-Voided Midstream Performed By: #### O BUDS, UA #### [address] Occult Blood,Urine Negative Normal Negative [facility] Comment on above: Order Comment: Name Collection Type:: Clean-Voided Midstream Result Comment: PERF ORMED BY: [place] [address] PATHOLOGIST WIRE REPAIRER CELESTINO LONG M.D. Performed By: #### O BUDS, UA #### [address] pH (U) 6.5 [pH] Normal 5.0-9.0 [facility] Comment on above: Order Comment: Name Collection Type:: Clean-Voided Midstream Performed By: #### O BUDS, UA #### [address] Protein,Urine Negative Normal Negative [facility] Comment on above: Order Comment: Name Collection Type:: Clean-Voided Midstream Performed By: #### O BUDS, UA #### [place] [address] [place] Specificy [place],Urine 1.005 Normal 1.001-1.030 [facility] Comment on above: Order Comment: Name Collection Type:: Clean-Voided Midstream Performed By: #### O BUDS, UA #### [place] [address] [place] Urobilinogen,Urine Normal Normal Normal [facility] Comment on above: Order Comment: Name Collection Type:: Clean-Voided Midstream Performed By: #### O BUDS, UA #### [address] Strep B Cultureon 10-13-2021 Strep B Culture Reason for Exam 35 weeks gestation of ; screening for stre Vaginal/Rectal No Group B Beta Streptococcus Isolated 3 Days PERFORMED BY: [place] [id number] PATHOLOGIST WIRE REPAIRER CELESTINO LONG M.D. Normal [facility] Comment on above: Performed By: #### C USTB #### [place] [id number] [facility] Vital Signs Date Time Vital Sign Value Performing Clinician Facility 11-23-2022 10:45-0400 Body height 161.29 cm Birgit Thomascassandra Other [facility] Other 11-23-2022 10:45-0400 Body mass index (BMI) [Ratio] 22.66 kg/m2 Birgit Thomascassandra Other [facility] Other 11-23-2022 10:45-0400 Body temperature 97.3 [degF] Birgit Thomascassandra Other [facility] Other 11-23-2022 10:45-0400 Body weight 58.97 kg Birgit Thomasbrisanaye Other [facility] Other 11-23-2022 10:45-0400 Diastolic blood pressure 68 mm[Hg] Birgit Danni Other [facility] Other 11-23-2022 10:45-0400 SaO2% (BldA) [Mass fraction] 99 % Birgit Thomascassandra Other [facility] Other 11-23-2022 10:45-0400 Systolic blood pressure 116 mm[Hg] Birgit Thomascassandra Other [facility] Other 03-21-2022 11:15-0400 Body height 161.29 cm Rishabh Hayes Other [facility] Other 03-21-2022 11:15-0400 Body mass index (BMI) [Ratio] 26.88 kg/m2 Rishabh Hayes Other [facility] Other 03-21-2022 11:15-0400 Body weight 69.95 kg Rishabh Manzanaresdiff Other [facility] Other 03-21-2022 11:15-0400 Diastolic blood pressure 77 mm[Hg] Rishabh Manzanaresdiff Other [facility] Other 03-21-2022 11:15-0400 Respiratory rate 18 /min Rishabh Manzanaresdiff Other [facility] Other 03-21-2022 11:15-0400 SaO2% (BldA) [Mass fraction] 99 % Rishabh Manzanaresdiff Other [facility] Other 03-21-2022 11:15-0400 Systolic blood pressure 117 mm[Hg] Rishabh Manzanaresdiff Other [facility] Other Encounters Encounter Date Encounter Type Care Provider Facility Start: 12-04-2023 End: 12-04-2023 Emergency department patient visit Cesia L Lee Facility: Start: 11-23-2022 End: 11-23-2022 ambulatory Birgit Razo Other [facility] Other Start: 11-23-2022 [facility] visit new patient Birgit yancey [facility] Start: 03-21-2022 End: 03-22-2022 ambulatory Rishabh Hayes [facility] Other Start: 03-21-2022 Nutrition therapy Rishabh Hayes [facility] Start: 11-14-2021 End: 11-14-2021 ambulatory Jennifer Roberson Facility:[facility] Start: 11-10-2021 End: 11-12-2021 Evaluation and management of inpatient Marie Peoples Facility:[facility] Start: 11-03-2021 End: 11-03-2021 ambulatory Chucho Barroso Facility:[facility] Start: 10-13-2021 End: 10-13-2021 ambulatory Marie Peoples Facility:[facility] Start: 03-29-2021 End: 03-29-2021 ambulatory CANDIDO MANE [facility] [place] Procedures Date Procedure Procedure Detail Performing Clinician Start: 11-11-2021 Antibody screen Marieepifanio dockery Comment on above: Order Comment: Needs drawn per Dulce Maria in Blood Bank. MLG Result Comment: PERF ORMED BY: [facility] [address] [place] [address] PATHOLOGIST WIRE REPAIRER CELESTINO LONG M.D. Immunizations Immunization Date Immunization Notes Care Provider Fa ingrid 03-09-2017 tetanus toxoid, redu tutu diphtheria toxoid, and acellular pertussis vaccine, adsorbed [facility] Payers Date Payer Category Payer Self-pay [id number] 2019 Unknown [id number] 1985 Unknown [id number] 2.16.8 [id number] Unknown [id number] 2.16.8 [id number] Unknown [id number] 2.16.8 [id number] Unknown [id number] 2.16.8 [id number] Unknown [id number] 2.16.8 [id number] Unknown [id number] 2.16.8 [id number] Social History Date Type Detail Facility Unknown if ever smoked [facility] Other Sex Assigned At Sex Assigned At Bir th [facility] Other Start: 1985 Sex Assigned At Female F [facility] Medication management note 12-05-2023 Note Date & Type Note Facility 12-05-2023 Note [id number] Clinical Note 12-04-2023 Note Date & Type [...] cannot use soap and water, 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 ? Wear clean or sterile gloves as [...] these instructions at home Medicines ? Take [id number] and prescription medicines only as told by [...] must be treated (more content not included)... Evaluation note 11-23-2022 Note Date & Type [...] the overall management of her venous disease. [facility] Other Evaluation note 03-21-2022 Note Date & Type Note Facility 03-21-2022 Evaluation note Encounter Date Diagnosis Assessment Notes Mar, Abnormal weight gain (ICD-10 - R63.5) Mar, Overweight (BMI 25.0-29.9) (ICD-10 - E66.3) Mar, Depression, unspecified depression type (ICD-10 - F32.9) Mar, Migraine (ICD-10 - G43.909) [facility] Other Evaluation note Note Date & Type Note Facility Evaluation note No assessment information availa [facility] Work Phone: History general Narrative - Reported Note Date & Type Note Facility History general Narrative - Reported Type Medical History Migraines Medical History PMDD (premenstrual dysphoric dis order) Medical History depression Surgical History colonoscopy Surgical History [place] teeth 2011 Surgical History D+C ectopic Hospitalization History Childbirth 2017 [facility] Other Reason for visit Narrative Note Date & Type Note Facility Reason for visit Narrative 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 [employer] [facility] Other Summary Purpose Family History No Family History Records Found Advance Directives No Advanced Directives Records FoundNo Advanced Directives Records FoundNo Advanced Directives Records Found Additional Source Comments REASON FOR VISIT (unrecogniz ed section and content) Initial WMN Goals (unrecognized section and content) Goals may be documented in a n alternate section INFORMATION SOURCE (unrecogn ized section and content) DATE CREATED AUTHOR 09/21/2022 [facility] DATE CREATED AUTHOR AUTHOR'S ORGANIZ ATION 11/19/2023 [facility] DATE CREATED AUTHOR AUTHOR'S ORGANIZ ATION 12/17/2023 [facility] FOR RECORDS PERTAINING TO PATIENTS WHO [...] BE BASED ON THE PRIMARY CLINICAL RECORDS. [facility] [employer] [facility]. provides no warranty or guarantee of the accuracy or completeness of information in this document.
[2023-12-18 15:24] VITALS: BP 108/72; PULSE 56; O2SAT 99; BMI 22.3
--- NOTE | 2023-12-18 15:24 | VEINCLINIC_ITS ---
Vital Signs 12/18/23 15:24 Height 5 ft 4 in Weight 58.967 kg BMI 22.3 BP 108/72 BP Location Right Brachial BP Position Sitting BP Cuff Size Adult Respiration 16 Pulse 56 L Pulse Oximetry (%) 99 Varicose Veins Gee Castillo MD personally performed the services described in this documentation, as scribed by Kristen Reyna RDMS in my presence and it is both accurate and complete. I, Kristen Reyna RDMS, am scribing for, and in the presence of, Dr. Emerita Sparks and in the presence of the patient. thigh: bilateral, knee: bilateral, calf: bilateral, ankle: bilateral and jauregui: bilateral aching, dull and other (itching, heavy) 2 6 years Worsened in recent months: Yes long car trips and sitting bed rest, elevating extremities, compression stockings and exercise Reports heaviness, pruritus, limb pain and leg edema History of lower extremity trauma: No Superficial thrombophlebitis: No Family history of varicose veins: yes Has patient had previous lower extremity venous surgery: No Patient has previously received the following treatment(s) for lower extremity varicose veins: Reports none Does patient have a history of : yes () Does patient intend to have future pregnancies: no Has patient had lower extremity venous scan with relux testing: Yes Support hose used: Yes (6 yrs) Problems walking or doing physical activity: No Do you walk much: Yes (5-6 x per week) Number of hours: 1 Do you stand much: Yes Medication compliance: good Large amounts of Vitamin K: No Review of Systems ROS Narrative Gee Castillo MD personally performed the services described in this documentation, as scribed by Kristen Reyna RDMS in my presence and it is both accurate and complete. Kristen Castillo RDMS, am scribing for, and in the presence of, Dr. Emerita Sparks and in the presence of the patient. Status of ROS 10 or more systems reviewed and unremark able except as noted in history and below Cardiovascular Reports: swelling of feet/ankles Musculoskeletal Reports: extremity pain, extremity swelling and muscle cramps Integumentary/Breast Reports: itching PFSH PFSH Medical History (Updated 12/18/23 @ 15:49 by Kristen Reyna) Depression ?F32.A - Depression, unspecified (ICD-10) Surgical History (Updated 12/18/23 @ 15:54 by Kristen Reyna) S/P sclerotherapy of varicose veins ?Z98.890 - Other specified postprocedural states (ICD-10) ?Z86.79 - Personal history of other diseases of the circulatory system (ICD- 10) Status post ablation of incompetent vein using laser ?Z98.890 - Other specified postprocedural states (ICD-10) History of dilation and curettage ?Z98.890 - Other specified postprocedural states (ICD-10) Family History (Updated 12/18/23 @ 15:56 by Kristen Reyna) Mother Varicose vein of leg Heart disease Father Heart disease Meds Home Medications and Allergies Home Medications ?Medication ?Instructions ?Recorded ?Confirmed ?Type fluoxetine 40 mg capsule (Prozac) 40 mg PO DAILY 12/18/23 12/18/23 History Allergies Allergy/AdvReac Type Severity Reaction Status Date / Time No Known Drug Allergies Allergy Unverified 12/18/23 15:58 Exam Narrative Exam Narrative: IGee MD personally performed the services described in this documentation, as scribed by Kristen Reyna RDMS in my presence and it is both accurate and complete. IKristen RDMS, am scribing for, and in the presence of, Dr. Emerita Sparks and in the presence of the patient. Constitutional Common normals: oriented x3 Lymph Lymphatic: no lymphedema noted Cardio Peripheral pulses: posterior tibial pulses present and dorsalis pedis pulses present Extremity General: calf tenderness, edema and other findings (Non-healing Ulcer) Right lower extremity: lower leg Right lower leg: inspection, palpation and other Left lower extremity: lower leg Left lower leg: inspection, palpation and other Neuro Common normals: oriented x3 Results Imaging Venous US: Radiologist's impression: Chemically induced thrombus in multiple varicose veins right leg. Thrombus extends into a 2.7 cm segment of distal PTV. Assessment and Plan Assessment and Plan (1) Status post ablation of incompetent vein using laser: (2) S/P sclerotherapy of varicose veins: Plan Patient in today for follow up ultrasound of lower extremity following treatment of Varithena/microfoam completed on 12/06/23. I, Gee Sparks MD personally performed the services described in this documentation, as scribed by Kristen Reyna RDMS in my presence and it is both accurate and complete. I, Kristen Reyna RDMS, am scribing for, and in the presence of, Dr. Emerita Sparks and in the presence of the patient.
--- NOTE | 2023-12-18 16:02 | P.DS_ITS ---
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
--- NOTE | 2023-12-18 16:02 | W.VEIN ---
Discharge Plan Discharge Disposition: Home, Self-Care Outpatient Diagnostics: VC INJ Foam Sclerosant [place] HEEL SEAT SANDER (Routine) Timeframe: 2 Weeks Facility: [facility] - Location: [facility] Center Ordered By: Gee Sparks Follow Up Appointments: 01/02/24 Print Language: Yoruba Discharge Date/Time: 12/18/23 16:04
== END 2023-12-18 16:04 | disposition home or self-care (01) ==
PROVIDERS: PCP Radiology Diagnostic Radiology; Visit Provider Radiology Diagnostic Radiology
DX: I80.01 Phlebitis and thrombophlebitis of superficial vessels of right lower extremity (principal)
CPT/HCPCS: 93971; G0463

== ENCOUNTER 2024-01-09 14:38 | Outpatient (OUT) | payer OTHER, SELFPAY ==
[2024-01-02 15:29] VITALS: BMI 21.9
--- NOTE | 2024-01-02 15:29 | V.VEINS.HP ---
Vital Signs 01/02/24 15:29 Height 5 ft 4 in Weight 58 kg BMI 21.9 Varicose Veins Gee Castillo MD personally performed the services described in this documentation, as scribed by Deny Dejesus RN in my presence and it is both accurate and complete. Deny Castillo RN, am scribing for, and in the presence of, Dr. Gee Sparks and in the presence of the patient. thigh: bilateral, knee: bilateral, calf: bilateral, ankle: bilateral and jauregui: bilateral aching, dull and other (itching, heavy) 2 6 years Worsened in recent months: Yes long car trips and sitting bed rest, elevating extremities, compression stockings and exercise Reports heaviness, pruritus, limb pain and leg edema History of lower extremity trauma: No Superficial thrombophlebitis: No Family history of varicose veins: yes Has patient had previous lower extremity venous surgery: No Patient has previously received the following treatment(s) for lower extremity varicose veins: Reports none Does patient have a history of : yes () Does patient intend to have future pregnancies: no Has patient had lower extremity venous scan with relux testing: Yes Support hose used: Yes (6 yrs) Problems walking or doing physical activity: No Do you walk much: Yes (5-6 x per week) Number of hours: 1 Do you stand much: Yes Medication compliance: good Large amounts of Vitamin K: No Review of Systems ROS Narrative Gee Castillo MD personally performed the services described in this documentation, as scribed by Deny Dejesus RN in my presence and it is both accurate and complete. Deny Castillo RN, am scribing for, and in the presence of, Dr. Gee Sparks and in the presence of the patient. Status of ROS 10 or more systems reviewed and unremarkable except as noted in history and below Cardiovascular Reports: swelling of feet/ankles Musculoskeletal Reports: extremity pain, extremity swelling and muscle cramps Integumentary/Breast Reports: itching PFSH PFSH Medical History (Updated 12/18/23 @ 16:04 by Kristen Reyna) Varicose veins of bilateral lower extremities with pain ?I83.813 - Varicose veins of bilateral lower extremities with pain (ICD-10) Depression ?F32.A - Depression, unspecified (ICD-10) Surgical History (Updated 12/18/23 @ 15:54 by Kristen Reyna) S/P sclerotherapy of varicose veins ?Z98.890 - Other specified postprocedural states (ICD-10) ?Z86.79 - Personal history of other diseases of the circulatory system (ICD-10) Status post ablation of incompetent vein using laser ?Z98.890 - Other specified postprocedural states (ICD-10) History of dilation and curettage ?Z98.890 - Other specified postprocedural states (ICD-10) Family History (Updated 12/18/23 @ 15:56 by Kristen Reyna) Mother Varicose vein of leg Heart disease Father Heart disease Meds Home Medications and Allergies Home Medications ?Medication ?Instructions ?Recorded ?Confirmed ?Type fluoxetine 40 mg capsule (Prozac) 40 mg PO DAILY 12/18/23 12/18/23 History Allergies Allergy/AdvReac Type Severity Reaction Status Date / Time No Known Drug Allergies Allergy Unverified 12/18/23 15:58 Exam Narrative Exam Narrative: IGee MD personally performed the services described in this documentation, as scribed by Deny Dejesus RN in my presence and it is both accurate and complete. IDeny RN, am scribing for, and in the presence of, Dr. Gee Sparks and in the presence of the patient.. Constitutional Common normals: oriented x3 Lymph Lymphatic: no lymphedema noted Cardio Peripheral pulses: posterior tibial pulses present and dorsalis pedis pulses present Extremity General: calf tenderness, edema and other findings (Non-healing Ulcer) Right lower extremity: lower leg Right lower leg: inspection, palpation and other Left lower extremity: lower leg Left lower leg: inspection, palpation and other Neuro Common normals: oriented x3 Assessment and Plan Assessment and Plan (1) Varicose veins of bilateral lower extremities with pain: Plan leg microfoam chemical ablation/Varithena: Risks and benefits of the procedure were discussed at length and informed written consent was obtained.? Time-out procedure was performed and the correct patient and procedure were confirmed.? Staff present during time-out: Deny Dejesus RN and Gee Sparks MD.? Patient prepped and procedure performed in usual sterile fashion.? Patient was placed in Trendelenburg prior to Polidocanol/Varithena injections. Sclerosing Agent:?? cc 1% Polidocanol/Varithena Site Injected: Left leg: Number of Injections:? The patient tolerated the procedure well without complication.? Hemostasis was obtained and thigh-high compression stocking was applied with foam pads.? Instructed patient to wear stocking for at least 96 hours and sleep with it and only remove for showering.? The patient was instructed to? wear stocking for 2 weeks.? Patient verbalizes understanding and states they will comply.? Patient was given post-procedure instructions. Patient was discharged in good condition.? Scheduled to undergo limited venous ultrasound and? exam on I, Gee Sparks MD personally performed the services described in this documentation, as scribed by Deny Dejesus RN in my presence and it is both accurate and complete. I, Deny Dejesus RN, am scribing for, and in the presence of, Dr. Gee Sparks and in the presence of the patient. Procedures Procedure Note Date of procedure: 01/03/24 Surgeon: Gee Sparks
--- NOTE | 2024-01-02 15:35 | W.VEIN ---
Discharge Plan Discharge Disposition: Home, Self-Care Outpatient Diagnostics: VC Facility EST LMTD (Routine) Timeframe: 2 Weeks Facility: [facility] - Location: [facility]in Center Ordered By: Gaudencio Carr VC EXT Venous LT Limited (Routine) Timeframe: 2 Weeks Facility: [facility] - Location: Vein Center Ordered By: Gaudencio Carr Print Language: Ukrainian
--- NOTE | 2024-01-09 13:14 | V.VEINS.HP ---
Vital Signs 01/02/24 15:29 01/09/24 14:45 Height 5 ft 4 in Weight 58 kg BMI 21.9 BP 102/54 BP Location Right Brachial BP Position Sitting BP Cuff Size Adult BP Source Manual Cuff Respiration 16 Pulse 90 Pulse Source Monitor Pulse Oximetry (%) 97 Oxygen Delivery Method Room Air Varicose Veins Patient in this day for microfoam chemical ablation left leg Gee Castillo MD personally performed the services described in this documentation, as scribed by Deny Dejesus RN in my presence and it is both accurate and complete. I, Deny Dejesus RN, am scribing for, and in the presence of, Dr. Gee Sparks and in the presence of the patient. thigh: bilateral, knee: bilateral, calf: bilateral, ankle: bilateral and jauregui: bilateral aching, dull and other (itching, heavy) 2 6 years Worsened in recent months: Yes long car trips and sitting bed rest, elevating extremities, compression stockings and exercise Reports heaviness, pruritus, limb pain and leg edema History of lower extremity trauma: No Superficial thrombophlebitis: No Family history of varicose veins: yes Has patient had previous lower extremity venous surgery: No Patient has previously received the following treatment(s) for lower extremity varicose veins: Reports none Does patient have a history of : yes () Does patient intend to have future pregnancies: no Has patient had lower extremity venous scan with relux testing: Yes Support hose used: Yes (6 yrs) Problems walking or doing physical activity: No Do you walk much: Yes (5-6 x per week) Number of hours: 1 Do you stand much: Yes Medication compliance: good Large amounts of Vitamin K: No Review of Systems ROS Narrative Gee Castillo MD personally performed the services described in this documentation, as scribed by Deny Dejesus RN in my presence and it is both accurate and complete. IDeny RN, am scribing for, and in the presence of, Dr. Gee Sparks and in the presence of the patient. Status of ROS 10 or more systems reviewed and unremarkable except as noted in history and below Cardiovascular Reports: swelling of feet/ankles Musculoskeletal Reports: extremity pain, extremity swelling and muscle cramps Integumentary/Breast Reports: itching [facility] Medical History (Updated 01/02/24 @ 15:37 by Deny Dejesus) Phlebitis of superficial vein of left lower extremity ?I80.02 - Phlebitis and thrombophlebitis of superficial vessels of left lower extremity (ICD-10) Varicose veins of bilateral lower extremities with pain ?I83.813 - Varicose veins of bilateral lower extremities with pain (ICD-10) Depression ?F32.A - Depression, unspecified (ICD-10) Surgical History S/P sclerotherapy of varicose veins ?Z98.890 - Other specified postprocedural states (ICD-10) ?Z86.79 - Personal history of other diseases of the circulatory system (ICD-10) Status post ablation of incompetent vein using laser ?Z98.890 - Other specified postprocedural states (ICD-10) History of dilation and curettage ?Z98.890 - Other specified postprocedural states (ICD-10) Family History Mother Varicose vein of leg Heart disease Father Heart disease Meds Home Medications and Allergies Home Medications ?Medication ?Instructions ?Recorded ?Confirmed ?Type fluoxetine 40 mg capsule (Prozac) 40 mg PO DAILY 12/18/23 12/18/23 History Allergies Allergy/AdvReac Type Severity Reaction Status Date / Time No Known Drug Allergies Allergy Unverified 12/18/23 15:58 Exam Narrative Exam Narrative: Gee Castillo MD personally performed the services described in this documentation, as scribed by Deny Dejesus RN in my presence and it is both accurate and complete. Deny Castillo RN, am scribing for, and in the presence of, Dr. Gee Sparks and in the presence of the patient. Constitutional Common normals: oriented x3 Lymph Lymphatic: no lymphedema noted Cardio Peripheral pulses: posterior tibial pulses present and dorsalis pedis pulses present Extremity General: calf tenderness, edema and other findings (Non-healing Ulcer) Right lower extremity: lower leg Right lower leg: inspection, palpation and other Left lower extremity: lower leg Left lower leg: inspection, palpation and other Neuro Common normals: oriented x3 Assessment and Plan Assessment and Plan (1) Varicose veins of bilateral lower extremities with pain: Plan Left leg microfoam chemical ablation/Varithena: Risks and benefits of the procedure were discussed at length and informed written consent was obtained.? Time-out procedure was performed and the correct patient and procedure were confirmed.? Staff present during time-out: Deny Dejesus RN and Gee Sparks MD.? Patient prepped and procedure performed in usual sterile fashion.? Patient was placed in Trendelenburg prior to Polidocanol/Varithena injections. Sclerosing Agent:??10 cc 1% Polidocanol/Varithena Site Injected: Left lecc varithena administered in to a 4mm varicose vein mid medial left lower leg 4cc varithena administered in to a 4mm varicose vein left proximal lateral lower leg Number of Injections:? 2 The patient tolerated the procedure well without complication.? Hemostasis was obtained and thigh-high compression stocking was applied with foam pads.? Instructed patient to wear stocking for at least 96 hours and sleep with it and only remove for showering.? The patient was instructed to? wear stocking for 2 weeks.? Patient verbalizes understanding and states they will comply.? Patient was given post-procedure instructions. Patient was discharged in good condition.? Scheduled to undergo limited venous ultrasound and? exam on 01/16/2024. IGee MD personally performed the services described in this documentation, as scribed by Deny Dejesus RN in my presence and it is both accurate and complete. Deny Castillo RN, am scribing for, and in the presence of, Dr. Gee Sparks and in the presence of the patient.
--- NOTE | 2024-01-09 13:16 | P.DS_ITS ---
Discharge Plan Discharge Disposition: Home, Self-Care Outpatient Diagnostics: VC Facility EST LMTD (Routine) Timeframe: 2 Weeks Facility: [facility] - Location: [facility] Ordered By: Gaudencio Carr VC EXT Venous LT Limited (Routine) Timeframe: 2 Weeks Facility: [facility] - Location: [facility] Center Ordered By: Gaudencio Carr Follow Up Appointments: 01/16/2024@09440 Plan of Treatment: f/u evaluation with physician along with left leg limited u/s Patient Instructions: Polidocanol (By injection) (Jennifer Mcgowanthelibby) Print Language: Romanian Discharge Date/Time: 01/09/24 15:39
--- NOTE | 2024-01-09 14:39 | VEIN_ITS ---
[address] [address] Patient Name: LONG YOON MRN: [id number] date: 1985 Sex: F Assigned Patient Location: Current Patient Location: Accession/Order Number: [id number] Exam Date: 01/09/2024 14:39 Report Date: 01/09/2024 16:17 At the request of: BARTOLO WOODSON Procedure: VC INJ Foam Sclerosant WUS EASTER BUNNY PROCEDURE: VC INJ Foam Sclerosant WUS EASTER BUNNY HISTORY: I83.813 - Varicose veins of bilateral lower extremities w... Pre-operative Diagnosis: CEAP class C3 venous insufficiency with pain, tenderness, edema and incompetent branch saphenous vein(s), chronic venous insufficiency left leg secondary to venous incompetence Post-operative Diagnosis: CEAP class C3 venous insufficiency with pain, tenderness, edema and incompetent branch saphenous vein(s), chronic venous insufficiency left leg secondary to venous incompetence Procedure Performed: 1. Ultrasound-guided microfoam chemical ablation with Varithenaregistered 2. Intraoperative ultrasound guidance Physician: Bartolo Woodson M.D. Anesthesia: None Indications for Procedure: 38 year old female. Symptoms including lower extremity swelling, heaviness, dilated bulging veins for many years despite conservative medical therapy including medical compression stockings, exercise and analgesics. Prior procedures include endovenous laser ablation and microfoam chemical ablation. Multiple incompetent varicosities of the left leg. Duplex scan showed reflux and enlarged diameters up to 4 mm. The patient underwent informed consent including management options where the complications of infection, bleeding, pain, and skin injury were discussed. Particular attention was spent discussing thrombus extension and deep vein thrombosis as well as the possibility of pulmonary embolus and treatment with oral or injectable blood thinners. Procedure: The patient walked to the procedure room. All applicable staff donned appropriate apparel. A procedure timeout was performed to confirm correct patient, correct extremity, correct procedure, and correct room set-up including presence of all applicable supplies, devices, and drugs. A duplex ultrasound, performed by myself confirmed the location and incompetence of branch saphenous varicosities and their course was marked on the skin together with the dilated tributaries. The extent of treatment of the vein and the associated varicosities was determined through ultrasound mapping. The skin was prepped and then punctured with a butterfly needle and advanced under ultrasound guidance. The Varithenaregistered canister was activated and the canister was primed and purged as required in the instructions for use. Varithenaregistered was drawn into a sterile syringe. Varithenaregistered was slowly administered at 0.5-1.0 cc/second with close observation by ultrasound of its course in the vessels. Total volume utilized was: 10 mL (6 mL into a 4 mm varicosity mid medial lower leg; 4 mL into a 4 mm varicosity proximal lateral lower leg). Following administration of Varithenaregistered the leg was elevated and the patient was asked to repeatedly dorsiflex the ankle to limit flow of Varithenaregistered into perforating veins. Once appropriate spasm had been confirmed in the treated veins, the vascular catheter was removed from the leg and light pressure was applied over the puncture site for hemostasis. The common femoral and deep superficial veins were then evaluated for flow and compressibility prior to dressing placement. The lower extremity was kept elevated at 45 degrees above the horizontal and cording material was applied over the saphenous segments and tributaries to allow for eccentric compression over the target vessels including the targeted saphenous vein(s). A multilayer dressing was applied consisting of foam pads, coban and thigh-high 20-30 mm Hg compression elastic support hose were placed on the patient. The leg was lowered only after compression had been applied and the patient was immediately ambulatory. The patient ambulated 10 minutes under supervision and was without apparent concerns at time of release. Post-care instructions include advising patient to keep post-treatment bandages in place and dry for 48 hours, avoid extended periods of inactivity, avoid heavy exercise for one week, wear compression stockings on the treated leg continuously for two weeks, to walk daily for 10 minutes over the next month. The patient was instructed to take an anti-inflammatory medicine as needed and to follow up for color duplex scan of the Saphenous veins, the treated branch saphenous varicosities, the adjacent deep veins, and additional treatment within 7 days. PERSONNEL: Deny Dejesus RN Electronically authenticated by: BARTOLO WOODSON Date: 01/09/2024 16:17
[2024-01-09 14:45] VITALS: BP 102/54; PULSE 90; O2SAT 97
--- OUTSIDE RECORDS SUMMARY | 2024-01-09 14:54 | XMS_ITS | CCD ---
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 CELESTINO LONG M.D. Performed By: #### O BUDS, UA #### [address] pH (U) 6.5 [pH] Normal 5.0-9.0 [facility] Comment on above: Order Comment: Name Collection Type:: Clean-Voided Midstream Performed By: #### O BUDS, UA #### [address] Protein,Urine Negative Normal Negative [facility] Comment on above: Order Comment: Name Collection Type:: Clean-Voided Midstream Performed By: #### O BUDS, UA #### [place] [address] [place] Specificy [place],Urine 1.005 Normal 1.001-1.030 [facility] Comment on above: Order Comment: Name Collection Type:: Clean-Voided Midstream Performed By: #### O BUDS, UA #### [place] [address] [place] Urobilinogen,Urine Normal Normal Normal [facility] Comment on above: Order Comment: Name Collection Type:: Clean-Voided Midstream Performed By: #### O BUDS, UA #### [address] Strep B Cultureon 10-13-2021 Strep B Culture Reason for Exam 35 weeks gestation of ; screening for stre Vaginal/Rectal No Group B Beta Streptococcus Isolated 3 Days PERFORMED BY: [place] [id number] PATHOLOGIST WELFARE CASE WORKER CELESTINO LONG M.D. Normal [facility] Comment on above: Performed By: #### C USTB #### [place] [id number] [place] Vital Signs Date Time Vital Sign Value Performing Clinician Facility 11-23-2022 10:45-0400 Body height 161.29 cm Birgit Thomascassandra Other [facility] Other 11-23-2022 10:45-0400 Body mass index (BMI) [Ratio] 22.66 kg/m2 Birgit Thomascassandra Other [facility] Other 11-23-2022 10:45-0400 Body temperature 97.3 [degF] Birgit Thomascassandra Other [facility] Other 11-23-2022 10:45-0400 Body weight 58.97 kg Birgit Thomasbrisanaye Other [facility] Other 11-23-2022 10:45-0400 Diastolic blood pressure 68 mm[Hg] Birgit Danni Other [facility] Other 11-23-2022 10:45-0400 SaO2% (BldA) [Mass fraction] 99 % Birgit Thomascassandra Other [facility] Other 11-23-2022 10:45-0400 Systolic blood pressure 116 mm[Hg] Birgit Thomascassandra Other [facility] Other 03-21-2022 11:15-0400 Body height 161.29 cm Rishabh Hayes Other [facility] Other 03-21-2022 11:15-0400 Body mass index (BMI) [Ratio] 26.88 kg/m2 Rishabh Hayes Other [facility] Other 03-21-2022 11:15-0400 Body weight 69.95 kg Rishabh Manzanaresdiff Other [facility] Other 03-21-2022 11:15-0400 Diastolic blood pressure 77 mm[Hg] Rishabh Manzanaresdiff Other [facility] Other 03-21-2022 11:15-0400 Respiratory rate 18 /min Rishabh Manzanaresdiff Other [facility] Other 03-21-2022 11:15-0400 SaO2% (BldA) [Mass fraction] 99 % Rishabh Manzanaresdiff Other [facility] Other 03-21-2022 11:15-0400 Systolic blood pressure 117 mm[Hg] Rishabh Manzanaresdiff Other [facility] Other Encounters Encounter Date Encounter Type Care Provider Facility Start: 12-04-2023 End: 12-04-2023 Emergency department patient visit Cesia L Lee Facility:[facility] Start: 11-23-2022 End: 11-23-2022 ambulatory Birgit Razo Other [facility] Other Start: 11-23-2022 [facility] visit new patient Birgit yancey [facility] Start: 03-21-2022 End: 03-22-2022 ambulatory Rishabh Hayes [facility] Other Start: 03-21-2022 Nutrition therapy Rishabh Hayes [facility] Start: 11-14-2021 End: 11-14-2021 ambulatory Jennifer Roberson Facility:[facility] Start: 11-10-2021 End: 11-12-2021 Evaluation and management of inpatient Marie Peoples Facility:[facility] Start: 11-03-2021 End: 11-03-2021 ambulatory Chucho Barroso Facility:[facility] Start: 10-13-2021 End: 10-13-2021 ambulatory Marie Peoples Facility:[facility] Start: 03-29-2021 End: 03-29-2021 ambulatory CANDIDO MANE [facility] Procedures Date Procedure Procedure Detail Performing Clinician Start: 11-11-2021 Antibody screen Marieepifanio dockery Comment on above: Order Comment: Needs drawn per Dulce Maria in Blood Bank. [facility] Result Comment: PERF ORMED BY: [facility] [address] [place] [address] PATHOLOGIST WELFARE CASE WORKER CELESTINO LONG M.D. Immunizations Immunization Date Immunization Notes Care Provider Fa ingrid 03-09-2017 tetanus toxoid, redu tutu diphtheria toxoid, and acellular pertussis vaccine, adsorbed [facility] Payers Date Payer Category Payer Self-pay [id number] 2019 Unknown [id number] 1985 Unknown [id number] 2.16.8 [id number] Unknown [id number] 2.16.8 [id number] Unknown [id number] 2.16.8 [id number] Unknown [id number] 2.16.8 [id number] Unknown [id number] 2.16.8 [id number] Unknown [id number] 2.16.8 [id number] Social History Date Type Detail Facility Unknown if ever smoked [facility] Other Sex Assigned At Sex Assigned At Bir th [facility] Other Start: 1985 Sex Assigned At Female F [facility] Medication management note 12-05-2023 Note Date & Type Note Facility 12-05-2023 Note [id number] F [facility] Clinical Note 12-04-2023 Note Date & Type [...] cannot use soap and water, use 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 ? Wear clean or sterile gloves as [...] these instructions at home Medicines ? Take icex-evb-vwzyahy and prescription medicines only as told by [...] must be treated (more content not included)... [facility] Evaluation note 11-23-2022 Note Date & Type [...] the overall management of her venous disease. [facility] Other Evaluation note 03-21-2022 Note Date & Type Note Facility 03-21-2022 Evaluation note Encounter Date Diagnosis Assessment Notes Mar, Abnormal weight gain (ICD-10 - R63.5) Mar, Overweight (BMI 25.0-29.9) (ICD-10 - E66.3) Mar, Depression, unspecified depression type (ICD-10 - F32.9) Mar, Migraine (ICD-10 - G43.909) [facility] Other Evaluation note Note Date & Type Note Facility Evaluation note No assessment information availa [facility] Work Phone: History general Narrative - Reported Note Date & Type Note Facility History general Narrative - Reported Type Medical History Migraines Medical History PMDD (premenstrual dysphoric dis order) Medical History depression Surgical History colonoscopy Surgical History [place] teeth 2011 Surgical History D+C ectopic Hospitalization History Childbirth 2017 [facility] Other Reason for visit Narrative Note Date & Type Note Facility Reason for visit Narrative 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 [employer] [facility] [employer] Other Summary Purpose Family History No Family [...] content) DATE CREATED AUTHOR 09/21/2022 [facility] DATE CREATED AUTHOR AUTHOR'S ORGANIZ ATION 11/19/2023 [facility] DATE CREATED AUTHOR AUTHOR'S ORGANIZ ATION 12/17/2023 [facility] FOR RECORDS PERTAINING TO PATIENTS WHO ARE [...] BE BASED ON THE PRIMARY CLINICAL RECORDS. [facility] [employer] [facility]. provides no warranty or guarantee of the accuracy or completeness of information in this document.
--- NOTE | 2024-01-09 15:39 | P.DS_ITS ---
Discharge Plan Discharge Disposition: Home, Self-Care Outpatient Diagnostics: [facility] Facility EST LMTD (Routine) Timeframe: 2 Weeks Facility: [facility] - Location: Vein Center Ordered By: Gaudencio Carr [facility] EXT Venous LT Limited (Routine) Timeframe: 2 Weeks Facility: [facility] - Location: Vein Center Ordered By: Gaudencio Carr Follow Up Appointments: 01/16/2024@[id number] Plan of Treatment: f/u evaluation with physician along with left leg limited u/s Patient Instructions: Polidocanol (By injection) (Jennifer Mcgowanthelibby) Print Language: Serbian Discharge Date/Time: 01/09/24 15:39
== END 2024-01-09 15:39 | disposition home or self-care (01) ==
LOC: VC 14:38
PROVIDERS: PCP Radiology Diagnostic Radiology; Visit Provider Radiology Diagnostic Radiology
DX: I83.813 Varicose veins of bilateral lower extremities with pain (principal)
CPT/HCPCS: 36466

== ENCOUNTER 2024-01-16 11:35 | Outpatient (OUT) | payer OTHER, SELFPAY ==
[2024-01-15 14:57] VITALS: BMI 21.9
--- NOTE | 2024-01-15 14:57 | VEINCLINIC_ITS ---
Vital Signs 01/15/24 14:57 Height 5 ft 4 in Weight 58 kg BMI 21.9 Varicose Veins Patient in this day for fololw up ultrasound post microfoam chemical ablation left leg Gaudencio Castillo MD personally performed the services described in this documentation, as scribed by Vicky Perez RVT, RDMS in my presence and it is both accurate and complete. IVicky RVT, RDMS, am scribing for, and in the presence of, Dr. Gaudencio Carr and in the presence of the patient. thigh: bilateral, knee: bilateral, calf: bilateral, ankle: bilateral and jauregui: bilateral aching, dull and other (itching, heavy) 2 6 years Worsened in recent months: Yes long car trips and sitting bed rest, elevating extremities, compression stockings and exercise Reports heaviness, pruritus, limb pain and leg edema History of lower extremity trauma: No Superficial thrombophlebitis: No Family history of varicose veins: yes Has patient had previous lower extremity venous surgery: No Patient has previously received the following treatment(s) for lower extremity v aricose veins: Reports none Does patient have a history of : yes () Does patient intend to have future pregnancies: no Has patient had lower extremity venous scan with relux testing: Yes Support hose used: Yes (6 yrs) Problems walking or doing physical activity: No Do you walk much: Yes (5-6 x per week) Number of hours: 1 Do you stand much: Yes Medication compliance: good Large amounts of Vitamin K: No Review of Systems ROS Narrative IGaudencio MD personally performed the services described in this documentation, as scribed by Vicky Perez RVT, RDMS in my presence and it is both accurate and complete. I, Vicky Perez RVT, RDMS, am scribing for, and in the presence of, Dr. Gaudencio Carr and in the presence of the patient. Status of ROS 10 or more systems reviewed and unremark able except as noted in history and below Cardiovascular Reports: swelling of feet/ankles Musculoskeletal Reports: extremity pain, extremity swelling and muscle cramps Integumentary/Breast Reports: itching PFSH PFSH Medical History (Updated 01/02/24 @ 15:37 by Deny Dejeuss) Phlebitis of superficial vein of left lower extremity ?I80.02 - Phlebitis and thrombophlebitis of superficial vessels of left lower extremity (ICD-10) Varicose veins of bilateral lower extremities with pain ?I83.813 - Varicose veins of bilateral lower extremities with pain (ICD-10) Depression ?F32.A - Depression, unspecified (ICD-10) Surgical History S/P sclerotherapy of varicose veins ?Z98.890 - Other specified postprocedural states (ICD-10) ?Z86.79 - Personal history of other diseases of the circulatory system (ICD- 10) Status post ablation of incompetent vein using laser ?Z98.890 - Other specified postprocedural states (ICD-10) History of dilation and curettage ?Z98.890 - Other specified postprocedural states (ICD-10) Family History Mother Varicose vein of leg Heart disease Father Heart disease Meds Home Medications and Allergies Home Medications ?Medication ?Instructions ?Recorded ?Confirmed ?Type fluoxetine 40 mg capsule (Prozac) 40 mg PO DAILY 12/18/23 12/18/23 History Allergies Allergy/AdvReac Type Severity Reaction Status Date / Time No Known Drug Allergies Allergy Unverified 12/18/23 15:58 Exam Narrative Exam Narrative: IGaudencio MD personally performed the services described in this documentation, as scribed by Vicky Perez RVT, RDMS in my presence and it is both accurate and complete. IVicky RVT, RDMS, am scribing for, and in the presence of, Dr. Gaudencio Carr and in the presence of the patient. 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 Assessment and Plan Assessment and Plan (1) Varicose veins of bilateral lower extremities with pain: (2) Phlebitis of superficial vein of left lower extremity: Plan Patient in today for follow up ultrasound of lower extremity following treatment of Varithena/microfoam left leg completed on 01/09/24. IGaudencio MD personally performed the services described in this documentation, as scribed by Vicky Perez RVT, RDMS in my presence and it is both accurate and complete. I, Vicky Perez RVT, RDMS, am scribing for, and in the presence of, Dr. Gaudencio Carr and in the presence of the patient.
--- NOTE | 2024-01-15 15:00 | W.VEIN ---
Discharge Plan Discharge Disposition: Home, Self-Care Outpatient Diagnostics: VC INJ Sclerosing SOLMULT Vein (Routine) Timeframe: 2 Weeks Facility: [facility] - Location: Vein Center Ordered By: Gaudencio Carr Follow Up Appointments: 01/23/24 Plan of Treatment: Sclerotherapy Print Language: Citizen Of [place] Discharge Date/Time: 01/16/24 12:07
--- NOTE | 2024-01-16 11:35 | VEIN_ITS ---
Patient Name: LONG YOON MR#: [id number] : 1985 Exam Date: 01/16/2024 Ordering Doctor: DR GAUDENCIO CARR M.D. RADIOLOGY REPORT PROCEDURE: [facility] EST LMTD VEIN CENTER - OFFICE VISIT FOLLOW UP COMPARISON: [facility] EST LMTD, 12/18/2023. [facility] EST LMTD, 12/04/2023. PROGRESS NOTES: The patient reports no significant problems following micro foam chemical ablation of incompetent left leg varicose veins. The patient or her compression stockings. The patient did not require oral analgesics. Physical exam demonstrates thrombosed varicose veins. Some mild hemosiderin staining. The patient was cautioned on covering these areas up or using mineral sunscreens to reduce permanent staining. No erythema or warmth to suggest cellulitis or thrombophlebitis. No active ulceration. Scattered reticular and spider veins. Review of the ultrasound performed the same day demonstrates occlusive thrombus extending throughout the treated left leg varicose veins with no deep vein thrombus. The patient expressed a desire to proceed with treatment of reticular and spider veins with injection sclerotherapy. VEIN/[facility] EST LMTD IMPRESSION: 1. Successful ablation of the treated left leg incompetent varicose veins 2. Persistent bilateral reticular and spider veins. PLAN: Injection sclerotherapy Nurse notes, history and physical were reviewed and confirmed, see attached forms. The nurse was present throughout the physical exam and consultation Dictated by: Gaudencio Carr MD on 01/16/2024 at 12:06 Approved by: Gaudencio Carr MD on 01/16/2024 at 12:07
--- NOTE | 2024-01-16 11:35 | VEIN_ITS ---
Patient Name: LONG YONO MR#: [id number] : 1985 Exam Date: 01/16/2024 Ordering Doctor: DR GAUDENCIO CARR M.D. RADIOLOGY REPORT PROCEDURE: VC EXT VENOUS LT LIMITED COMPARISON: VC EXT VENOUS LT LIMITED, 12/04/2023. VC EXT VENOUS LT LIMITED, 10/26/2023. INDICATIONS: I80.02 - Phlebitis and thrombophlebitis of superficial ve... TECHNIQUE: Lower extremity jean scale and Duplex Doppler evaluation of the deep venous system from the inguinal ligament through the calf veins. FINDINGS: REGION: Left lower extremity. THROMBI: Negative for DVT. 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 COMPRESSIBILITY: Non-compressible segments corresponding to thrombus FLOW: Areas of no flow corresponding to thrombus OTHER: No significant varicose veins remain. CONCLUSION: Post ablation occlusion of treated left leg incompetent varicose veins Dictated by: Gaudencio Carr MD on 01/16/2024 at 12:03 Approved by: Gaudencio Carr MD on 01/16/2024 at 12:03
--- OUTSIDE RECORDS SUMMARY | 2024-01-16 11:45 | XMS_ITS | CCD ---
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 5.0-9.0 [facility] Comment on above: Order Comment: Name Collection Type:: Clean-Voided Midstream Performed By: #### O BUDS, UA #### [address] Protein,Urine Negative Normal Negative [facility] Comment on above: Order Comment: Name Collection Type:: Clean-Voided Midstream Performed By: #### O BUDS, UA #### [place] [address] [place] Specificy [place],Urine 1.005 Normal 1.001-1.030 [facility] Comment on above: Order Comment: Name Collection Type:: Clean-Voided Midstream Performed By: #### O BUDS, UA #### [place] [address] [place] Urobilinogen,Urine Normal Normal Normal [facility] Comment on above: Order Comment: Name Collection Type:: Clean-Voided Midstream Performed By: #### O BUDS, UA #### [address] Strep B Cultureon 10-13-2021 Strep B Culture Reason for Exam 35 weeks gestation of ; screening for stre Vaginal/Rectal No Group B Beta Streptococcus Isolated 3 Days PERFORMED BY: [place] [id number] PATHOLOGIST TECHNOLOGY ANALYST CELESTINO LONG M.D. Normal [facility] Comment on above: Performed By: #### C USTB #### [place] [id number] [facility] Vital Signs Date Time Vital Sign Value Performing Clinician Facility 11-23-2022 10:45-0400 Body height 161.29 cm Birgit Thomascassandra Other [facility] Other 11-23-2022 10:45-0400 Body mass index (BMI) [Ratio] 22.66 kg/m2 Birgit Thomascassandra Other [facility] Other 11-23-2022 10:45-0400 Body temperature 97.3 [degF] Birgit Thomascassandra Other [facility] Other 11-23-2022 10:45-0400 Body weight 58.97 kg Birgit Thomasbrisanaye Other [facility] Other 11-23-2022 10:45-0400 Diastolic blood pressure 68 mm[Hg] Birgit Danni Other [facility] Other 11-23-2022 10:45-0400 SaO2% (BldA) [Mass fraction] 99 % Birgit Thomascassandra Other [facility] Other 11-23-2022 10:45-0400 Systolic blood pressure 116 mm[Hg] Birgit Thomascassandra Other [facility] Other 03-21-2022 11:15-0400 Body height 161.29 cm Rishabh Hayes Other [facility] Other 03-21-2022 11:15-0400 Body mass index (BMI) [Ratio] 26.88 kg/m2 Rishabh Hayes Other [facility] Other 03-21-2022 11:15-0400 Body weight 69.95 kg Rishabh Manzanaresdiff Other [facility] Other 03-21-2022 11:15-0400 Diastolic blood pressure 77 mm[Hg] Rishabh Manzanaresdiff Other [facility] Other 03-21-2022 11:15-0400 Respiratory rate 18 /min Rishabh Manzanaresdiff Other [facility] Other 03-21-2022 11:15-0400 SaO2% (BldA) [Mass fraction] 99 % Rishabh Manzanaresdiff Other [facility] Other 03-21-2022 11:15-0400 Systolic blood pressure 117 mm[Hg] Rishabh Manzanaresdiff Other [facility] [employer] Other Encounters Encounter Date Encounter Type Care Provider Facility Start: 12-04-2023 End: 12-04-2023 Emergency department patient visit Cesia L Lee Facility:[facility] Start: 11-23-2022 End: 11-23-2022 ambulatory Birgit Razo Other [facility] Other Start: 11-23-2022 [facility] visit new patient Birgit yancey [facility] V[facility] Surgery Start: 03-21-2022 End: 03-22-2022 ambulatory Rishabh Hayes [facility] Other Start: 03-21-2022 Nutrition therapy Rishabh Hayes [facility] Start: 11-14-2021 End: 11-14-2021 ambulatory Jennifer Roberson Facility:[facility] Start: 11-10-2021 End: 11-12-2021 Evaluation and management of inpatient Marie Peoples Facility:[facility] Start: 11-03-2021 End: 11-03-2021 ambulatory Chucho Barroso Facility:[facility] Start: 10-13-2021 End: 10-13-2021 ambulatory Marie Peoples Facility:[facility] Start: 03-29-2021 End: 03-29-2021 ambulatory CANDIDO MANE [facility] Procedures Date Procedure Procedure Detail Performing Clinician Start: 11-11-2021 Antibody screen Marieepifanio dockery Comment on above: Order Comment: Needs drawn per Dulce Maria in Blood Bank. [facility] Result Comment: PERF ORMED BY: [facility] [address] [place] [address] PATHOLOGIST TECHNOLOGY ANALYST CELESTINO LONG M.D. Immunizations Immunization Date Immunization Notes Care Provider Fa ingrid 03-09-2017 tetanus toxoid, redu tutu diphtheria toxoid, and acellular pertussis vaccine, adsorbed [facility] Payers Date Payer Category Payer Self-pay [id number] 2019 Unknown [id number] 1985 Unknown [id number] 2.16.8 [id number] Unknown [id number] 2.16.8 [id number] Unknown [id number] 2.16.8 [id number] Unknown [id number] 2.16.8 [id number] Unknown [id number] 2.16.8 [id number] Unknown [id number] 2.16.8 [id number] Social History Date Type Detail Facility Unknown if ever smoked [employer] Other Sex Assigned At Sex Assigned At Bir th [employer] Other Start: 1985 Sex Assigned At Female F [facility] Medication management note 12-05-2023 Note Date & Type Note Facility 12-05-2023 Note [id number] [facility] Clinical Note 12-04-2023 Note Date & [...] cannot use soap and water, use hand wagon winder. ? Wear clean or sterile gloves as [...] these instructions at home Medicines ? Take [id number] and prescription medicines only as told by [...] must be treated (more content not included)... [facility] Evaluation note 11-23-2022 Note Date & [...] the overall management of her venous disease. [employer] Other Evaluation note 03-21-2022 Note Date & Type Note Facility 03-21-2022 Evaluation note Encounter Date Diagnosis Assessment Notes Mar, Abnormal weight gain (ICD-10 - R63.5) Mar, Overweight (BMI 25.0-29.9) (ICD-10 - E66.3) Mar, Depression, unspecified depression type (ICD-10 - F32.9) Mar, Migraine (ICD-10 - G43.909) [employer] Other Evaluation note Note Date & Type Note Facility Evaluation note No assessment information availa [facility] Work Phone: History general Narrative - Reported Note Date & Type Note Facility History general Narrative - Reported Type Medical History Migraines Medical History PMDD (premenstrual dysphoric dis order) Medical History depression Surgical History colonoscopy Surgical History [place] teeth 2011 Surgical History D+C ectopic Hospitalization History Childbirth 2017 [employer] [employer] Other Reason for visit Narrative Note Date & Type Note Facility Reason for visit Narrative 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 [facility] [employer] Other Summary Purpose Family History No Family History Records Found Advance Directives No Advanced Directives Records FoundNo Advanced Directives Records FoundNo Advanced Directives Records Found Additional Source Comments REASON FOR VISIT (unrecogniz ed section and content) Initial WMN Goals (unrecognized section and content) Goals may be documented in a n alternate section INFORMATION SOURCE (unrecogn ized section and content) DATE CREATED AUTHOR 09/21/2022 [facility] DATE CREATED AUTHOR AUTHOR'S ORGANIZ ATION 11/19/2023 [facility] DATE CREATED AUTHOR AUTHOR'S ORGANIZ ATION 12/17/2023 [facility] FOR RECORDS PERTAINING TO PATIENTS WHO ARE [...] BE BASED ON THE PRIMARY CLINICAL RECORDS. [facility] [employer] [facility]. provides no warranty or guarantee of the accuracy or completeness of information in this document.
== END 2024-01-16 12:07 | disposition home or self-care (01) ==
LOC: VC 11:35
PROVIDERS: PCP Radiology Diagnostic Radiology; Visit Provider Radiology Diagnostic Radiology
DX: I80.02 Phlebitis and thrombophlebitis of superficial vessels of left lower extremity (principal)
CPT/HCPCS: 93971; G0463